=== PATIENT | male | born 1965 | race Asian ===

== ENCOUNTER 2020-05-07 08:41 | Outpatient (REF) | payer OTHER, SELFPAY ==
[2020-05-07 11:05] LABS: MANUAL DIFF FLAG NO
[2020-05-07 11:09] LABS: White Blood Count 5.9 X10*3/uL (4.8-10.8)
[2020-05-07 11:10] LABS: Basophils Percent Auto 0.5 % (0-2); Eosinophils Absolute Auto 0.2 X10*3/uL (0.0-0.4); Eosinophils Percent Auto 3.4 % (0-4); Hematocrit 46.7 % (42-52); Hemoglobin 15.7 g/dl (14.0-18.0); Imm Gran Abs Auto 0.08 X10*3/uL (0.00-0.03); Imm Gran Pct Auto 1.4 % (0.0-0.4); Lymphocytes Absolute Auto 2.2 X10*3/uL (1.2-4.9); Mean Corpuscular HGB Conc 33.6 g/dl (31.0-36.0); Mean Corpuscular Hemoglobin 30.2 pg (27.0-33.0); Mean Corpuscular Volume 89.8 fL (80-98); Mean Platelet Volume 10.8 fL (9.4-12.4); Monocytes Absolute Auto 0.6 X10*3/uL (0.1-1.2); Monocytes Percent Auto 10.8 % (2-11); Neutrophils Absolute Auto 2.8 X10*3/uL (2.0-8.3); Neutrophils Percent Auto 46.9 % (45-73); Platelet Count 231 X10*3/uL (160-400)
[2020-05-07 11:27] LABS: Glucose Urine UA NEG (NEG); Leukocyte Esterase Urine NEG (NEG); Nitrite Urine NEG (NEG); Specific Gravity - Urine >= 1.030 (1.005-1.025); Urine Blood TRACE (NEG); Urine Ketones NEG (NEG); Urine Protein 2+ MG/DL (NEG-TRACE)
[2020-05-07 11:31] LABS: Appearance Urine CLEAR; Color Urine YELLOW
[2020-05-07 11:33] LABS: Alanine Aminotransferase 34 U/L (0-40); Alkaline Phosphatase 84 U/L (39-117); Anion Gap 11 (12-20); Aspartate Amino Transferase 25 U/L (5-37); Bilirubin Total 1.4 mg/dL (0.0-1.0); Blood Urea Nitrogen 22 mg/dL (9-16); Calcium 8.1 mg/dL (8.4-10.2); Carbon Dioxide 27 mmol/L (22-29); Chloride 104 mmol/L (96-108); Cholesterol 166 mg/dL; Estimated Glomerular Filt Rate > 60; Glucose Fasting 91 mg/dL (60-99); HDL Cholesterol 40 mg/dL; LDL Cholesterol Calculated 110 mg/dl; Potassium 4.2 mmol/l (3.3-5.1); Sodium 138 mmol/L (135-145); Total Protein 6.9 g/dL (6.5-8.0); Triglycerides 83 mg/dL
[2020-05-07 11:46] LABS: RBC Urine 0-2 /HPF (0); Squamous Epithelial Cell Urine TRACE /LPF; WBC Urine 0 /HPF (0-4)
[2020-05-07 12:25] LABS: Creatinine Urine 137.56 mg/dL
[2020-05-07 12:45] LABS: Microalbum/Creatinine Ratio Ur 879.6 ug/mg cr
[2020-05-07 13:40] LABS: TSH reflex Free T4 1.17 mIU/mL (0.32-4.0); Vitamin D 25-OH Total 18.3 ng/mL (>30)
== END 2020-05-07 08:42 | disposition home or self-care (01) ==
LOC: HO.HMGCLDS 08:41
PROVIDERS: PCP Internal Medicine; Visit Provider Internal Medicine
DX: E78.00 Pure hypercholesterolemia, unspecified (principal); I10 Essential (primary) hypertension; R80.1 Persistent proteinuria, unspecified; K51.90 Ulcerative colitis, unspecified, without complications; E55.9 Vitamin D deficiency, unspecified; E66.9 Obesity, unspecified
CPT/HCPCS: 36415; 80053; 80061; 81001; 82043; 82306; 84443; 85025

== ENCOUNTER 2020-09-09 11:56 | Outpatient (REF) | payer OTHER, SELFPAY ==
[2020-09-09 15:11] LABS: Albumin Level 3.9 g/dL (3.5-5.0)
[2020-09-14 11:51] LABS: IgA 336 mg/dL (47-310); IgG 1244 mg/dL (600-1640); IgM 41 mg/dL (50-300)
== END 2020-09-09 11:57 | disposition home or self-care (01) ==
LOC: HO.HMGCLDS 11:56
PROVIDERS: PCP Internal Medicine; Visit Provider Internal Medicine Nephrology
DX: I12.9 Hypertensive chronic kidney disease with stage 1 through stage 4 chronic kidney disease, or unspecified chronic kidney disease (principal); N18.9 Chronic kidney disease, unspecified; R80.1 Persistent proteinuria, unspecified
CPT/HCPCS: 36415; 82040; 82784; 86334

== ENCOUNTER 2020-09-19 09:27 | Outpatient (REF) | payer OTHER, SELFPAY ==
[2020-09-19 12:17] LABS: Creatinine, mg/dL 174.31; Protein mg/dL 159 mg/dL
[2020-09-19 12:45] LABS: Creatinine, 24Hr Urine 2.5 G/Day (1.0-2.0); Protein 24 Hr Urine 2306 mg/Day (<150); Total Volume 24 Hour Urine 1450 mL
== END 2020-09-19 09:28 | disposition home or self-care (01) ==
LOC: HO.HMGCLNP 09:27
PROVIDERS: Visit Provider Internal Medicine
DX: R80.1 Persistent proteinuria, unspecified (principal); I12.9 Hypertensive chronic kidney disease with stage 1 through stage 4 chronic kidney disease, or unspecified chronic kidney disease
CPT/HCPCS: 84156

== ENCOUNTER 2020-10-03 08:46 | Outpatient (REF) | payer OTHER, SELFPAY ==
[2020-10-03 11:21] LABS: MANUAL DIFF FLAG NO
[2020-10-03 11:40] LABS: Prothrombin Time 11.9 SEC (10.8-13.0)
[2020-10-03 11:41] LABS: Basophils Percent Auto 0.6 % (0-2); Eosinophils Absolute Auto 0.2 X10*3/uL (0.0-0.4); Eosinophils Percent Auto 3.1 % (0-4); Hematocrit 48.7 % (42-52); Hemoglobin 16.4 g/dl (14.0-18.0); Imm Gran Abs Auto 0.08 X10*3/uL (0.00-0.03); Imm Gran Pct Auto 1.6 % (0.0-0.4); Lymphocytes Absolute Auto 1.8 X10*3/uL (1.2-4.9); Lymphocytes Percent Auto 34.4 % (20-40); Mean Corpuscular HGB Conc 33.7 g/dl (31.0-36.0); Mean Corpuscular Hemoglobin 30.4 pg (27.0-33.0); Mean Corpuscular Volume 90.4 fL (80-98); Mean Platelet Volume 10.6 fL (9.4-12.4); Monocytes Absolute Auto 0.4 X10*3/uL (0.1-1.2); Monocytes Percent Auto 8.3 % (2-11); Neutrophils Absolute Auto 2.6 X10*3/uL (2.0-8.3); Platelet Count 206 X10*3/uL (160-400); Red Blood Count 5.39 X10*6/uL (4.60-5.80); Red Cell Distribution Width 13.1 % (11.0-16.0); White Blood Count 5.1 X10*3/uL (4.8-10.8)
[2020-10-03 11:45] LABS: Glucose Urine UA NEG (NEG); Leukocyte Esterase Urine NEG (NEG); Nitrite Urine NEG (NEG); PH 6.5 (5.0-8.0); Specific Gravity - Urine >= 1.030 (1.005-1.025); Urine Blood 1+ (NEG); Urine Ketones NEG (NEG); Urine Protein 2+ MG/DL (NEG-TRACE)
[2020-10-03 11:53] LABS: Appearance Urine CLEAR; Color Urine YELLOW
[2020-10-03 12:12] LABS: WBC Urine 0 /HPF (0-4)
[2020-10-03 12:18] LABS: Creatinine Urine 152.69 mg/dL; Microalbum/Creatinine Ratio Ur 890.6 ug/mg cr
[2020-10-03 12:25] LABS: Alanine Aminotransferase 31 U/L (0-40); Alkaline Phosphatase 89 U/L (39-117); Anion Gap 11 (12-20); Aspartate Amino Transferase 23 U/L (5-37); Bilirubin Total 1.2 mg/dL (0.0-1.0); Blood Urea Nitrogen 22 mg/dL (9-16); Calcium 8.8 mg/dL (8.4-10.2); Carbon Dioxide 29 mmol/L (22-29); Chloride 103 mmol/L (96-108); Cholesterol 166 mg/dL; Estimated Glomerular Filt Rate > 60; Glucose Fasting 94 mg/dL (60-99); HDL Cholesterol 41 mg/dL; LDL Cholesterol Calculated 107 mg/dl; Potassium 4.4 mmol/L (3.3-5.1); Sodium 139 mmol/L (135-145); Triglycerides 93 mg/dL
== END 2020-10-03 08:47 | disposition home or self-care (01) ==
LOC: HO.HMGCLDS 08:46
PROVIDERS: Absent Provider Internal Medicine Nephrology; PCP Internal Medicine; Visit Provider Internal Medicine
DX: I10 Essential (primary) hypertension (principal); R80.1 Persistent proteinuria, unspecified; E66.9 Obesity, unspecified; E78.00 Pure hypercholesterolemia, unspecified; K21.9 Gastro-esophageal reflux disease without esophagitis; K51.90 Ulcerative colitis, unspecified, without complications; E55.9 Vitamin D deficiency, unspecified
CPT/HCPCS: 36415; 80053; 80061; 81001; 82043; 82306; 83520; 84443; 85025; 85610

== ENCOUNTER 2021-02-23 09:48 | Outpatient (REF) | payer OTHER, SELFPAY ==
[2021-02-23 11:35] LABS: Anion Gap 15 (12-20); Blood Urea Nitrogen 28 mg/dL (9-16); Calcium 9.4 mg/dL (8.4-10.2); Carbon Dioxide 30 mmol/L (22-29); Chloride 99 mmol/L (96-108); Estimated Glomerular Filt Rate 55; Potassium 3.5 mmol/L (3.3-5.1); Sodium 140 mmol/L (135-145)
== END 2021-02-23 09:49 | disposition home or self-care (01) ==
LOC: HO.HMGCLDS 09:48
PROVIDERS: PCP Internal Medicine; Visit Provider Internal Medicine Nephrology
DX: N04.1 Nephrotic syndrome with focal and segmental glomerular lesions (principal); I10 Essential (primary) hypertension; R80.1 Persistent proteinuria, unspecified
CPT/HCPCS: 36415; 80051; 82310; 82565; 84520

== ENCOUNTER 2022-07-22 09:06 | Outpatient (REF) | payer OTHER, SELFPAY ==
[2022-07-22 11:43] LABS: Hematocrit 49.4 % (42.0-52.0); Hemoglobin 17.2 g/dl (14.0-18.0); Mean Corpuscular HGB Conc 34.8 g/dl (31.0-36.0); Mean Corpuscular Hemoglobin 30.7 pg (27.0-33.0); Mean Corpuscular Volume 88.1 fL (80.0-98.0); Mean Platelet Volume 10.5 fL (9.4-12.4); Platelet Count 236 X10*3/uL (160-400); Red Blood Count 5.61 X10*6/uL (4.60-5.80); Red Cell Distribution Width 12.9 % (11.0-16.0); White Blood Count 6.8 X10*3/uL (4.8-10.8)
[2022-07-22 11:57] LABS: Alanine Aminotransferase 31 U/L (0-40); Alkaline Phosphatase 84 U/L (39-117); Anion Gap 10 (12-20); Aspartate Amino Transferase 23 U/L (5-37); Bilirubin Total 1.3 mg/dL (0.0-1.0); Blood Urea Nitrogen 19 mg/dL (9-16); Calcium 9.3 mg/dL (8.4-10.2); Carbon Dioxide 33 mmol/L (22-29); Chloride 99 mmol/L (96-108); Cholesterol 184 mg/dL; Estimated Glomerular Filt Rate > 60; Glucose Fasting 112 mg/dL (60-99); HDL Cholesterol 36 mg/dL; LDL Cholesterol Calculated 126 mg/dl; Potassium 3.7 mmol/L (3.3-5.1); Sodium 138 mmol/L (135-145); Triglycerides 110 mg/dL
[2022-07-22 12:18] LABS: TSH reflex Free T4 1.11 uIU/mL (0.32-4.0); Vitamin D 25-OH Total 15.6 ng/mL (>30)
== END 2022-07-22 09:07 | disposition home or self-care (01) ==
LOC: HO.HMGCLDS 09:06
PROVIDERS: Absent Provider Internal Medicine Nephrology; PCP Internal Medicine; Visit Provider Nurse Practitioner Family
DX: E55.9 Vitamin D deficiency, unspecified (principal); E78.00 Pure hypercholesterolemia, unspecified; I10 Essential (primary) hypertension; N04.1 Nephrotic syndrome with focal and segmental glomerular lesions
CPT/HCPCS: 36415; 80053; 80061; 82306; 84443; 85027

== ENCOUNTER 2022-07-23 09:46 | Outpatient (REF) | payer OTHER, SELFPAY ==
[2022-07-23 12:04] LABS: Creatinine Urine 110.93 mg/dL; Protein/Creatinine Ratio, Ur 0.86 (<0.2); Total Protein Urine Random 95 mg/dL (<12)
[2022-07-23 14:40] LABS: Creatinine, mg/dL 64.94; Protein mg/dL 43 mg/dL
[2022-07-23 15:43] LABS: Creatinine, 24Hr Urine 1.6 G/Day (1.0-2.0); Protein 24 Hr Urine 1086 mg/Day (<150); Total Volume 24 Hour Urine 2525 mL
== END 2022-07-23 09:47 | disposition home or self-care (01) ==
LOC: HO.HMGCLNP 09:46
PROVIDERS: Visit Provider Internal Medicine Nephrology
DX: I10 Essential (primary) hypertension (principal); N04.1 Nephrotic syndrome with focal and segmental glomerular lesions
CPT/HCPCS: 84156

== ENCOUNTER 2022-08-05 11:39 | Outpatient (REF) | payer OTHER, SELFPAY ==
[2022-08-05 14:37] LABS: Erythrocyte Sedimentation Rate 13 MM/HR (0-15); Rheumatoid Factor < 13.0 IU/mL (<15.0)
[2022-08-10 12:13] LABS: Anti Nuclear Antibody Screen NEGATIVE (NEGATIVE)
== END 2022-08-05 11:40 | disposition home or self-care (01) ==
LOC: HO.HMGCLDS 11:39
PROVIDERS: PCP Internal Medicine; Visit Provider Internal Medicine
DX: M25.50 Pain in unspecified joint (principal); M79.7 Fibromyalgia
CPT/HCPCS: 36415; 85652; 86038; 86039; 86140; 86431

== ENCOUNTER 2022-10-26 10:46 | Outpatient (REF) | payer OTHER, SELFPAY ==
[2022-10-26 13:58] LABS: MANUAL DIFF FLAG NO
[2022-10-26 14:03] LABS: Appearance Urine Turbid; Color Urine Yellow; Glucose Urine UA Negative (Negative); Leukocyte Esterase Urine Negative (Negative); Nitrite Urine Negative (Negative); PH 5.5 (5.0-9.0); Specific Gravity - Urine 1.025 (1.005-1.025); UMIC TRIGGER UACC YES; Urine Blood Small (1+) (Negative); Urine Ketones Negative (Negative); Urine Protein 300 (3+) mg/dL (Neg-Trace)
[2022-10-26 14:15] LABS: Basophils Percent Auto 0.4 % (0-2); Eosinophils Absolute Auto 0.2 X10*3/uL (0.0-0.4); Eosinophils Percent Auto 2.3 % (0-4); Hematocrit 49.6 % (42.0-52.0); Imm Gran Abs Auto 0.08 X10*3/uL (0.00-0.03); Imm Gran Pct Auto 1.1 % (0.0-0.4); Lymphocytes Absolute Auto 2.2 X10*3/uL (1.2-4.9); Lymphocytes Percent Auto 29.1 % (20-40); Mean Corpuscular HGB Conc 34.3 g/dl (31.0-36.0); Mean Corpuscular Hemoglobin 30.2 pg (27.0-33.0); Mean Corpuscular Volume 88.1 fL (80.0-98.0); Mean Platelet Volume 11.1 fL (9.4-12.4); Monocytes Absolute Auto 0.6 X10*3/uL (0.1-1.2); Monocytes Percent Auto 8.3 % (2-11); Neutrophils Absolute Auto 4.3 x10*3/uL (2.0-8.3); Neutrophils Percent Auto 58.8 % (45-73); Platelet Count 231 X10*3/uL (160-400); Red Blood Count 5.63 X10*6/uL (4.60-5.80); Red Cell Distribution Width 12.9 % (11.0-16.0); White Blood Count 7.4 X10*3/uL (4.8-10.8)
[2022-10-26 14:19] LABS: Estimated Average Glucose 131 mg/dL; Hemoglobin A1c % 6.2 %
[2022-10-26 14:46] LABS: Bacteria Urine None Seen (None Seen); Hyaline Casts Urine 0-2 /LPF (0-2); RBC Urine 0-2 /HPF (0-2); Squamous Epithelial Cell Urine 0-2 /HPF (0-2); WBC Urine 0-5 /HPF (0-5)
[2022-10-26 14:49] LABS: Alanine Aminotransferase 28 U/L (0-40); Albumin Level 3.8 g/dL (3.5-5.0); Alkaline Phosphatase 77 U/L (39-117); Anion Gap 12 (12-20); Aspartate Amino Transferase 20 U/L (5-37); Bilirubin Total 1.4 mg/dL (0.0-1.0); Blood Urea Nitrogen 21 mg/dL (9-16); Calcium 9.2 mg/dL (8.4-10.2); Carbon Dioxide 29 mmol/L (22-29); Chloride 103 mmol/L (96-108); Cholesterol 188 mg/dL; Estimated Glomerular Filt Rate > 60; Glucose Fasting 113 mg/dL (60-99); HDL Cholesterol 36 mg/dL; LDL Cholesterol Calculated 129 mg/dl; Potassium 3.8 mmol/L (3.3-5.1); Sodium 140 mmol/L (135-145); Total Protein 6.8 g/dL (6.5-8.0); Triglycerides 119 mg/dL
[2022-10-26 14:55] LABS: TSH reflex Free T4 1.22 uIU/mL (0.32-4.0); Vitamin D 25-OH Total 31.2 ng/mL (>30)
== END 2022-10-26 10:47 | disposition home or self-care (01) ==
LOC: HO.HMGCLDS 10:46
PROVIDERS: Absent Provider Internal Medicine; PCP Internal Medicine; Visit Provider Nurse Practitioner Family
DX: I10 Essential (primary) hypertension (principal); R73.01 Impaired fasting glucose; E55.9 Vitamin D deficiency, unspecified; E78.00 Pure hypercholesterolemia, unspecified; R30.0 Dysuria
CPT/HCPCS: 36415; 80053; 80061; 81001; 81003; 82306; 83036; 84443; 85025

== ENCOUNTER 2022-11-01 16:44 | Outpatient (AMB) | payer OTHER, SELFPAY ==
[2022-11-01 16:45] VITALS: BP 126/84; PULSE 95; O2SAT 95; BMI 39.2
--- NOTE | 2022-11-01 16:45 | A.OFFPC_ITS ---
Vital Signs 11/01/22 16:45 Height 5 ft 9 in Weight 265 lb 6 oz BMI 39.2 BP 126/84 Blood Pressure Location Lt brachial Position Sitting Pulse 95 Pulse Source Pulse Oximeter Pulse Oximetry (%) 95 Oxygen Delivery Method Room Air Intake Visit Reasons: f/u Intake Note: Patient is here for a follow up. 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 Accompanied by: Self / Same As Patient Allergies No Known Allergies Allergy (Verified 03/18/23 16:40) Medication List - Last Reconciled 11/01/22 by Chi Cruz MD atorvastatin 80 mg PO BEDTIME 90 days blood pressure monitor As directed chlorthalidone 25 mg PO DAILY cholecalciferol (vitamin D3) 50 mcg PO DAILY 90 days clotrimazole-betamethasone 1-0.05 % 1 appl topical BID PRN losartan 125 mg PO DAILY Tobacco use date assessed: 11/01/22 HPI f/u HPI Details Patient comes in today for his follow up visit States that he feels okay except for increased pain in both hands lately States that he sometimes feels that his hands are swollen and he can hardly make a fist with his hands Does not recall any recent injury or trauma to his hands He denies any headaches or dizziness Denies any chest pains, no SOB No nausea/vomiting, no abdominal pain No change in bowel habits noted Had his follow up labs done last week - to discuss his results [facility] Medical History Bilateral hand pain FSGS (focal segmental glomerulosclerosis) Obesity (BMI 30-39.9) Ulcerative colitis without complications Persistent proteinuria Vitamin D deficiency GERD without esophagitis Pure hypercholesterolemia Benign essential hypertension Surgical History (Updated 03/18/23 @ 17:11 by Chi Cruz MD) Hx of colonoscopy H/O right knee surgery H/O left knee surgery Family History Father Diabetes Hypertension CVD (cardiovascular disease) Mother Medical history unknown Social History Housing: House Patient Tobacco Use Status: Never used Tobacco e-Cigarette/Vaping Use: Never Used service: No Current occupational status: employed Cognitive needs: No Hearing needs: No Vision needs: No Questionnaire PHQ-9 Over the last 2 weeks, how often have you been bothered by any of the following problems? 1. Little interest or pleasure in doing things: not at all 2. Feeling down, depressed, or hopeless: not at all 3. Trouble falling or staying asleep, or sleeping too much: not at all 4. Feeling tired or having little energy: not at all 5. Poor appetite or overeating: not at all 6. Feeling bad about yourself - or that you are a failure or have let yourself or your family down: not at all 7. Trouble concentrating on things, such as reading the newspaper or watching television: not at all 8. Moving or speaking so slowly that other people could have noticed. Or the opposite - being so fidgety or restless that you have been moving around a lot more than usual: not at all 9. Thoughts that you would be better off or of hurting yourself in some way: not at all Total score: 0 Depression Screening Interpretation: Negative 74152 - PHQ-9 Billing: Yes Source: Developed by Drs. Andre Amaral, Brenna Hamilton, Florin Glover and colleagues, with an educational sumaya from [employer]. Thrive Questionnaire Date Thrive assessed: 11/01/22 I am a: Patient What is your living situation today?: I have a steady place to live Within the past 12 months, did the food you bought not last and you didn't have the money to get more?: Never true Within the past 12 months, did you worry whether your food would run out before you got money to buy more?: Never true Currently or been in a relationship where the following occur: no concerns reported AUDIT C Alcohol Use Questionnaire (AUDIT-C) 1. How often do you have a drink containing alcohol?: Never 2. How many drinks containing alcohol do you have on a typical day when you are drinking?: 1 or 2 (0) 3. How often do you have six or more drinks on one occasion?: Never Total Score: 0 Score Reviewed/Action Taken: Yes JEY-7 AMB Questionnaire JEY-7 Date JEY - 7 assessed: 11/01/22 Feeling nervous, anxious, or on edge: 0 = Not at all Not being able to stop or control worryin = Not at all Worrying too much about different things: 0 = Not at all Trouble relaxin = Not at all Being so restless that it is hard to sit still: 0 = Not at all Becoming easily annoyed or irritable: 0 = Not at all Feeling afraid as if something awful might happen: 0 = Not at all Total JEY-7 score (0-4 normal; 5-9 mild; 10-14 moderate; 15-21 severe): 0 Source: Developed by Drs. Andre Amaral, Brenna Hamilton, Florin Glover and colleagues, with an educational sumaya from [employer]. JEY-7 Assessment Billing JEY-7 Assessment Tool: JEY-7 Assessment 13917 Review of Systems Const Denies fatigue, Denies fever(s) and Denies headache(s) ENT Denies dysphagia, Denies dizziness, Denies otalgia, Denies headache(s), Denies odynophagia and Denies sore throat Card Denies chest pain, Denies palpitations and Denies dyspnea Resp Denies cough and Denies dyspnea GI Denies abdominal pain, Denies constipation, Denies dysphagia, Denies heartburn, Denies diarrhea, Denies nausea, Denies odynophagia and Denies vomiting Denies dysuria, Denies nocturia and Denies urinary frequency Musc Details: (+) bilateral hand pain Skin/Breast Denies rash Neuro Denies dizziness and Denies headache(s) Endo Denies fatigue and Denies palpitations Physical exam (Primary Care) Vital Signs: Last Vital Signs Pulse 95 11/01/22 16:45 BP 126/84 11/01/22 16:45 Pulse Ox 95 11/01/22 16:45 Oxygen Delivery Method Room Air 11/01/22 16:45 BMI result Body Mass Index 39.2 Tobacco/Smoking Status: Tobacco use Status Tobacco use date assessed 11/01/22 11/01/22 16:54 Patient Tobacco Use Status Never used Tobacco 11/01/22 16:54 e-Cigarette/Vaping Use Never Used 11/01/22 16:54 PHQ-9: PHQ-9 Score PHQ-9: Total score 0 11/01/22 17:15 Depression Screening Interpretation: Negative Thrive Assessment: Date of Thrive Assessment Date Thrive assessed 11/01/22 11/01/22 16:54 Currently or been in a relationship where the following occur: no concerns reported Const General: no acute distress and alert HENMT Ears: TM's normal bilaterally and EAC's normal Throat: Yes posterior oropharynx normal and Yes tonsils normal (no TP congestion) Neck Neck: Yes no lymphadenopathy and Yes supple Resp Auscultation: clear to auscultation bilaterally, no rales and no wheezes Cardio Rate: regular rate Rhythm: regular rhythm Heart sounds: no murmurs GI Palpation (GI): Soft to palpation, nontender and No hepatosplenomegaly present Auscultation: normal bowel sounds Skin General skin exam: no rashes or lesions noted Extrem General: Yes no clubbing, cyanosis or edema Right upper extremity: Extremity exam: right hand Details: tenderness Left upper extremity: hand Details: tenderness Results Reviewed Results Reviewed: Laboratory Tests 10/26/22 10/26/22 10/26/22 10:52 10:52 10:52 WBC 7.4 Hgb 17.0 Hct 49.6 Plt Count 231 Sodium 140 Potassium 3.8 Creatinine 0.97 Estimated GFR > 60 Fasting Glucose 113 H Hemoglobin A1c % Calcium 9.2 AST 20 ALT 28 Triglycerides 119 Cholesterol 188 LDL Cholesterol, Calc 129 HDL Cholesterol 36 25-OH Vitamin D Total 31.2 TSH 1.22 Ur Specific [employer] 1.025 Urine Protein 300 (3+) H Urine Glucose (UA) Negative Urine Blood Small (1+) H 10/26/22 10:52 WBC Hgb Hct Plt Count Sodium Potassium Creatinine Estimated GFR Fasting Glucose Hemoglobin A1c % 6.2 Calcium AST ALT Triglycerides Cholesterol LDL Cholesterol, Calc HDL Cholesterol 25-OH Vitamin D Total TSH Ur Specific [employer] Urine Protein Urine Glucose (UA) Urine Blood Assessment and Plan Assessment & Plan (1) Benign essential hypertension: Code(s): I10 - Essential (primary) hypertension Plan: Reinforced low sodium diet - goal is systolic BP of 120 mm or less Continue Losartan 25 mg 5 tablets (125 mg) QD and Chlorthalidone 25 mg QD Follow up with nephrology as scheduled (2) Pure hypercholesterolemia: Code(s): E78.00 - Pure hypercholesterolemia, unspecified Plan: Results of his labs done last week reviewed and discussed with patient Reinforced low cholesterol diet Continue Atorvastatin 80 mg QD Will recheck his labs in 4 months for follow up (3) Impaired fasting glucose: Code(s): R73.01 - Impaired fasting glucose Plan: HgbA1c was at 6.2% on his labs done last week;in-office HgbA1c was at 6.3% a few months ago Patient is reminded that this classifies him as a borderline diabetic He wishes to continue with diet modification, exercise and weight loss for now and does not wish to be started on medications for his blood sugar at this time Will recheck his FBS and HgbA1c in 4 months for follow-up (4) Persistent proteinuria: Comment: due to 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 Alejandra) as scheduled Patient has also been reportedly advised to consider bariatric (gastric sleeve) surgery to help improve his health and comorbidities (5) Vitamin D deficiency: Code(s): E55.9 - Vitamin D deficiency, unspecified Plan: Continue Vitamin D3 2000 units QD (6) Bilateral hand pain: Code(s): M79.641 - Pain in right hand; M79.642 - Pain in left hand Plan: Will send for x-rays of both hands for further evaluation (7) GERD without esophagitis: Code(s): K21.9 - Gastro-esophageal reflux disease without esophagitis Plan: Dietary restrictions reinforced Used to take Omeprazole 20 mg QD but states that he has not needed to take any Rx in a while now (8) Ulcerative colitis without complications: Comment: (+) diffuse ulcerative colitis diagnosed on previous colonoscopy in 2002 (Dr. Ayala) Code(s): K51.90 - Ulcerative colitis, unspecified, without complications Qualifiers: Ulcerative colitis location: unspecified ulcerative colitis location Qualified Code(s): K51.90 - Ulcerative colitis, unspecified, without complications Plan: Stable Colonoscopy done in 2013 came out normal and was due for repeat colonoscopy in May 2019 but this has been delayed/held up due to the COVID-19 pandemic Patient is advised to follow up with GI as scheduled and should consider getting a repeat colonoscopy GISELA as it has been more than 5 years now since his last procedure (9) Obesity (BMI 30-39.9): Code(s): E66.9 - Obesity, unspecified Plan: Reinforced diet/exercise as tolerated /lose weight Has been advised by Nephrology to consider gastric sleeve / bariatric surgery to help improve his health - patient has obesity-related secondary FSGS and persistent proteinuria and has been counseled that this can improve with significant weight loss He was previously referred to weight management for further evaluation as he is very hesitant to undergo bariatric surgery and would like to get more information on this for now but is interested in at least the medical weight management option - is still awaiting appt Plan Follow up in 4 months Orders: Orders XR hand LT min 3V 11/01/22 M79.641 - Pain in right hand, M79.642 - Pain in left hand XR hand RT min 3V 11/01/22 M79.641 - Pain in right hand, M79.642 - Pain in left hand Complete Blood Count Auto Diff 4 Months I10 - Essential (primary) hypertension Lipid Panel 4 Months E78.00 - Pure hypercholesterolemia, unspecified Vitamin D 25-OH Total 4 Months E55.9 - Vitamin D deficiency, unspecified Hemoglobin A1c 4 Months R73.01 - Impaired fasting glucose Comprehensive [place]. Panel Fast 4 Months E78.00 - Pure hypercholesterolemia, unsp ecified TSH reflex Free T4 4 Months E78.00 - Pure hypercholesterolemia, unspecified UA CC w/rflx Micro + Cult 4 Months R30.0 - Dysuria Coding Level of Care Code Est Pt Level 4 (89961) Diagnoses Benign essential hypertension I10 Pure hypercholesterolemia E78.00 Impaired fasting glucose R73.01 Persistent proteinuria R80.1 Vitamin D deficiency E55.9 Bilateral hand pain M79.641; M79.642 GERD without esophagitis K21.9 Ulcerative colitis without complications, unspecified location K51.90 Ulcerative colitis location: unspecified ulcerative colitis location Obesity (BMI 30-39.9) E66.9 Additional Codes JEY-7 Assessment Billing - JEY-7 Assessment Tool: JEY-7 Assessment 28268 ([id number])
== END 2022-11-01 17:48 | disposition home or self-care (01) ==
LOC: HO.HMGH 16:44
PROVIDERS: PCP Internal Medicine; Visit Provider Internal Medicine
DX: I10 Essential (primary) hypertension (principal); E55.9 Vitamin D deficiency, unspecified; K21.9 Gastro-esophageal reflux disease without esophagitis; K51.90 Ulcerative colitis, unspecified, without complications; E78.00 Pure hypercholesterolemia, unspecified; R73.01 Impaired fasting glucose; R80.1 Persistent proteinuria, unspecified; M79.641 Pain in right hand; M79.642 Pain in left hand; E66.9 Obesity, unspecified
CPT/HCPCS: 99214

== ENCOUNTER 2023-03-17 09:52 | Outpatient (REF) | payer OTHER, SELFPAY ==
[2023-03-17 13:11] LABS: MANUAL DIFF FLAG NO
[2023-03-17 13:24] LABS: Basophils Percent Auto 0.5 % (0-2); Eosinophils Absolute Auto 0.1 X10*3/uL (0.0-0.4); Eosinophils Percent Auto 2.2 % (0-4); Hematocrit 49.3 % (42.0-52.0); Hemoglobin 17.1 g/dl (14.0-18.0); Imm Gran Abs Auto 0.08 X10*3/uL (0.00-0.03); Imm Gran Pct Auto 1.4 % (0.0-0.4); Lymphocytes Absolute Auto 1.8 X10*3/uL (1.2-4.9); Lymphocytes Percent Auto 29.9 % (20-40); Mean Corpuscular HGB Conc 34.7 g/dl (31.0-36.0); Mean Corpuscular Hemoglobin 30.9 pg (27.0-33.0); Mean Platelet Volume 11.6 fL (9.4-12.4); Monocytes Absolute Auto 0.5 X10*3/uL (0.1-1.2); Monocytes Percent Auto 8.5 % (2-11); Neutrophils Absolute Auto 3.4 x10*3/uL (2.0-8.3); Neutrophils Percent Auto 57.5 % (45-73); Platelet Count 201 X10*3/uL (160-400); Red Blood Count 5.54 X10*6/uL (4.60-5.80); Red Cell Distribution Width 13.1 % (11.0-16.0); White Blood Count 5.9 X10*3/uL (4.8-10.8)
[2023-03-17 13:33] LABS: Estimated Average Glucose 128 mg/dL; Hemoglobin A1c % 6.1 % (<6.0)
[2023-03-17 13:42] LABS: Alanine Aminotransferase 38 U/L (0-40); Albumin Level 3.8 g/dL (3.5-5.0); Alkaline Phosphatase 71 U/L (39-117); Anion Gap 13 (12-20); Aspartate Amino Transferase 31 U/L (5-37); Bilirubin Total 0.9 mg/dL (0.0-1.0); Blood Urea Nitrogen 17 mg/dL (9-16); Carbon Dioxide 28 mmol/L (22-29); Chloride 103 mmol/L (96-108); Cholesterol 170 mg/dL (<200); Estimated Glomerular Filt Rate > 60; Glucose Fasting 105 mg/dL (60-99); HDL Cholesterol 37 mg/dL (>40); LDL Cholesterol Calculated 115 mg/dL (<100); Potassium 3.7 mmol/L (3.3-5.1); Sodium 140 mmol/L (135-145); Total Protein 7.2 g/dL (6.5-8.0); Triglycerides 94 mg/dL (<150)
[2023-03-17 13:49] LABS: TSH reflex Free T4 1.09 uIU/mL (0.32-4.0); Vitamin D 25-OH Total 47.2 ng/mL (>30)
[2023-03-17 13:53] LABS: Appearance Urine Turbid; Color Urine Yellow; Glucose Urine UA Negative (Negative); Leukocyte Esterase Urine Negative (Negative); Nitrite Urine Negative (Negative); PH 5.5 (5.0-9.0); Specific Gravity - Urine 1.025 (1.005-1.025); UMIC TRIGGER UACC YES; Urine Blood Trace (Negative); Urine Ketones Negative (Negative); Urine Protein 300 (3+) mg/dL (Neg-Trace)
[2023-03-17 13:58] LABS: Bacteria Urine None Seen (None Seen); Hyaline Casts Urine 0-2 /LPF (0-2); Squamous Epithelial Cell Urine 0-2 /HPF (0-2); WBC Urine 0-5 /HPF (0-5)
== END 2023-03-17 09:53 | disposition home or self-care (01) ==
LOC: HO.HMGCLDS 09:52
PROVIDERS: Absent Provider Nurse Practitioner Family; PCP Internal Medicine; Visit Provider Internal Medicine
DX: E78.00 Pure hypercholesterolemia, unspecified (principal); I10 Essential (primary) hypertension; E55.9 Vitamin D deficiency, unspecified; R73.01 Impaired fasting glucose
CPT/HCPCS: 36415; 80053; 80061; 81001; 82306; 83036; 84443; 85025

== ENCOUNTER 2023-03-18 16:22 | Outpatient (AMB) | payer OTHER, SELFPAY ==
[2023-03-18 16:24] VITALS: BP 124/90; PULSE 84; O2SAT 95; BMI 40.4
--- NOTE | 2023-03-18 16:24 | A.OFFPC_ITS ---
Vital Signs 03/18/23 16:24 Height 5 ft 9 in Weight 273 lb 6 oz BMI 40.4 BP 124/90 H Blood Pressure Location Lt brachial Position Sitting Pulse 84 Pulse Source Pulse Oximeter Pulse Oximetry (%) 95 Oxygen Delivery Method Room Air Intake Visit Reasons: HTN, hyperlipidemia, IFG, FSGS Research Anthropologist Required: No Accompanied by: Self / Same As Patient Allergies No Known Allergies Allergy (Verified 03/18/23 16:40) Medication List - Last Reconciled 03/18/23 by Chi Cruz MD atorvastatin 80 mg PO BEDTIME 90 days blood pressure monitor As directed chlorthalidone 25 mg PO DAILY cholecalciferol (vitamin D3) 50 mcg PO DAILY 90 days clotrimazole-betamethasone 1-0.05 % 1 appl topical BID PRN losartan 125 mg PO DAILY Tobacco use date assessed: 03/18/23 Dental Screening Dental Screen Date: 03/18/23 Did you have a dental visit in the last 12 months?: No Did you have a dental problem in the last 6 months where you did not have access to dental care?: No Was dental information given to patient?: No HPI HTN, hyperlipidemia, IFG, FSGS HPI Details Patient comes in today for his follow up visit States that he feels okay He denies any headaches or dizziness Denies any chest pains, no SOB No nausea/vomiting, no abdominal pain No change in bowel habits noted Will be needing his Losartan Rx refilled Had his follow up labs done yesterday - to discuss his results FOR[facility], [facility] Medical History Bilateral hand pain FSGS (focal segmental glomerulosclerosis) Obesity (BMI 30-39.9) Ulcerative colitis without complications Persistent proteinuria Vitamin D deficiency GERD without esophagitis Pure hypercholesterolemia Benign essential hypertension Surgical History (Updated 03/18/23 @ 17:11 by Chi Cruz MD) Hx of colonoscopy H/O right knee surgery H/O left knee surgery Family History Father Diabetes Hypertension CVD (cardiovascular disease) Mother Medical history unknown Social History Housing: House Patient Tobacco Use Status: Never used Tobacco e-Cigarette/Vaping Use: Never Used service: No Current occupational status: employed Cognitive needs: No Hearing needs: No Vision needs: No Questionnaire PHQ-9 Over the last 2 weeks, how often have you been bothered by any of the following problems? 1. Little interest or pleasure in doing things: not at all 2. Feeling down, depressed, or hopeless: not at all 3. Trouble falling or staying asleep, or sleeping too much: not at all 4. Feeling tired or having little energy: not at all 5. Poor appetite or overeating: not at all 6. Feeling bad about yourself - or that you are a failure or have let yourself or your family down: not at all 7. Trouble concentrating on things, such as reading the newspaper or watching television: not at all 8. Moving or speaking so slowly that other people could have noticed. Or the opposite - being so fidgety or restless that you have been moving around a lot more than usual: not at all 9. Thoughts that you would be better off or of hurting yourself in some way: not at all Total score: 0 Depression Screening Interpretation: Negative 69982 - PHQ-9 Billing: Yes Source: Developed by Drs. Andre Amaral, Brenna Hamilton, Florin Glover and colleagues, with an educational sumaya from [employer]. Thrive Questionnaire Date Thrive assessed: 03/18/23 I am a: Patient What is your living situation today?: I have a steady place to live Within the past 12 months, did the food you bought not last and you didn't have the money to get more?: Never true Within the past 12 months, did you worry whether your food would run out before you got money to buy more?: Never true Do you have trouble paying for medicines?: No Do you have trouble getting transportation to medical appointments?: No Do you have trouble paying your heating and electricity bill?: No Do you have trouble taking care of your child, family member or friend?: No Do you have trouble with day-to-day activities such as bathing, preparing meals, shopping, managing finances, etc.?: No Are you currently unemployed and looking for a job?: No Are you interested in more education?: No Please select the resources that you would like help with: None Currently or been in a relationship where the following occur: no concerns reported AUDIT C Alcohol Use Questionnaire (AUDIT-C) 1. How often do you have a drink containing alcohol?: Never 2. How many drinks containing alcohol do you have on a typical day when you are drinking?: 1 or 2 (0) 3. How often do you have six or more drinks on one occasion?: Never Total Score: 0 Score Reviewed/Action Taken: Yes JEY-7 AMB Questionnaire JEY-7 Date JEY - 7 assessed: 03/18/23 Feeling nervous, anxious, or on edge: 0 = Not at all Not being able to stop or control worryin = Not at all Worrying too much about different things: 0 = Not at all Trouble relaxin = Not at all Being so restless that it is hard to sit still: 0 = Not at all Becoming easily annoyed or irritable: 0 = Not at all Feeling afraid as if something awful might happen: 0 = Not at all Total JEY-7 score (0-4 normal; 5-9 mild; 10-14 moderate; 15-21 severe): 0 Source: Developed by Drs. Andre Amaral, Brenna Hamilton, Florin Glover and colleagues, with an educational sumaya from [employer]. JEY-7 Assessment Billing JEY-7 Assessment Tool: JEY-7 Assessment 56892 Review of Systems Const Denies chills, Denies fatigue, Denies fever(s) and Denies headache(s) ENT Denies dysphagia, Denies dizziness, Denies otalgia, Denies headache(s), Denies neck pain, Denies odynophagia and Denies sore throat Card Denies chest pain, Denies palpitations and Denies dyspnea Resp Denies cough and Denies dyspnea GI Denies abdominal pain, Denies constipation, Denies dysphagia, Denies heartburn, Denies diarrhea, Denies nausea, Denies odynophagia and Denies vomiting Denies dysuria, Denies nocturia and Denies urinary frequency Musc Denies neck pain Neuro Denies dizziness and Denies headache(s) Endo Denies fatigue and Denies palpitations Physical exam (Primary Care) Vital Signs: Last Vital Signs Pulse 84 03/18/23 16:24 BP 124/90 H 03/18/23 16:24 Pulse Ox 95 03/18/23 16:24 Oxygen Delivery Method Room Air 03/18/23 16:24 BMI result Body Mass Index 40.4 Tobacco/Smoking Status: Tobacco use Status Tobacco use date assessed 03/18/23 03/18/23 16:26 Patient Tobacco Use Status Never used Tobacco 03/18/23 16:26 e-Cigarette/Vaping Use Never Used 03/18/23 16:26 PHQ-9: PHQ-9 Score PHQ-9: Total score 0 03/18/23 16:55 Depression Screening Interpretation: Negative Thrive Assessment: Date of Thrive Assessment Date Thrive assessed 03/18/23 03/18/23 16:26 Currently or been in a relationship where the following occur: no concerns reported Const General: no acute distress and alert HENMT Ears: TM's normal bilaterally and EAC's normal Throat: Yes posterior oropharynx normal and Yes tonsils normal (no TP congest ion) Neck Neck: Yes no lymphadenopathy and Yes supple Resp Auscultation: clear to auscultation bilaterally, no rales and no wheezes Cardio Rate: regular rate Rhythm: regular rhythm Heart sounds: no murmurs GI Palpation (GI): Soft to palpation and nontender Auscultation: normal bowel sounds Skin Rashes: no rashes Extrem General: Yes no clubbing, cyanosis or edema Results Reviewed Results Reviewed: Laboratory Tests 03/17/23 10:02 WBC 5.9 Hgb 17.1 Hct 49.3 Plt Count 201 Sodium 140 Potassium 3.7 Creatinine 0.99 Estimated GFR > 60 Fasting Glucose 105 H Hemoglobin A1c % 6.1 H Calcium 9.0 AST 31 ALT 38 Triglycerides 94 Cholesterol 170 LDL Cholesterol, Calc 115 H HDL Cholesterol 37 L 25-OH Vitamin D Total 47.2 TSH 1.09 Ur Specific [place] 1.025 Urine Protein 300 (3+) H Urine Glucose (UA) Negative Urine Blood Trace H Assessment and Plan Assessment & Plan (1) Benign essential hypertension: Code(s): I10 - Essential (primary) hypertension Plan: Reinforced low sodium diet - goal is systolic BP of 120 mm or less Continue Losartan 100 mg + 25 mg (125 mg) QD and Chlorthalidone 25 mg QD Follow up with nephrology as scheduled (2) Pure hypercholesterolemia: Code(s): E78.00 - Pure hypercholesterolemia, unspecified Plan: Results of his labs done yesterday reviewed and discussed with patient Reinforced low cholesterol diet Continue Atorvastatin 80 mg QD Will recheck his labs and fasting lipids in 4 months for follow up (3) Impaired fasting glucose: Code(s): R73.01 - Impaired fasting glucose Plan: HgbA1c was at 6.1% on his labs done yesterday;was at 6.2% a few months ago Reinforced low calorie/low carb diet, exercise and weight loss Patient wishes to continue with diet modification and avoid taking any Rx for his blood sugar as much as possible Will recheck his FBS and HgbA1c again in 4 months for follow-up (4) Persistent proteinuria: Comment: due to 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 Alejandra) as scheduled Patient has also reportedly been advised to consider bariatric (gastric sleeve) surgery to help improve his health and comorbidities - he has explored weight management recently and is hesitant to undergo bariatric surgery present (5) Vitamin D deficiency: Code(s): E55.9 - Vitamin D deficiency, unspecified Plan: Corrected - continue Vitamin D3 2000 units QD (6) GERD without esophagitis: Code(s): K21.9 - Gastro-esophageal reflux disease without esophagitis Plan: Dietary restrictions reinforced Used to take Omeprazole 20 mg QD but states that he has not needed to take his Rx in a while now (7) Ulcerative colitis without complications: Comment: (+) diffuse ulcerative colitis diagnosed on previous colonoscopy in 2002 (Dr. Ayala) Code(s): K51.90 - Ulcerative colitis, unspecified, without complications Qualifiers: Ulcerative colitis location: unspecified ulcerative colitis location Qualified Code(s): K51.90 - Ulcerative colitis, unspecified, without complications Plan: Stable - states that he's had no acute flare ups of his colitis in years Colonoscopy done in 2013 came out normal and thinks that he was due for repeat colonoscopy in May 2019 but this was delayed/held up due to the COVID-19 pandemic Reviewing his 2013 biopsy revealed findings of a quiescent colitis with no evidence of dysplasia and Dr. Ayala actually recommended back then that patient can wait up to 10 years for a repeat colonoscopy if he has no recurrent flare ups of his colitis, so he will be due for a recheck next year Follow up with GI as scheduled (8) Obesity (BMI 30-39.9): Code(s): E66.9 - Obesity, unspecified Plan: Reinforced diet/exercise as tolerated /lose weight Has been advised by Nephrology to consider gastric sleeve / bariatric surgery to help improve his health - patient has obesity-related secondary FSGS and persistent proteinuria and has been counseled that this can improve with significant weight loss He was referred previously to weight management for further evaluation but patient remains very hesitant to undergo bariatric surgery at this time Plan Follow up in 4 months Orders: Orders Microalbumin, Random (w Creat) 4 Months E11.9 - Type 2 diabetes mellitus without complications Vitamin D 25-OH Total 4 Months E55.9 - Vitamin D deficiency, unspecified TSH reflex Free T4 4 Months E78.00 - Pure hypercholesterolemia, unspecified Comprehensive [place]. Panel Fast 4 Months E78.00 - Pure hypercholesterolemia, unspecified Complete Blood Count Auto Diff 4 Months I10 - Essential (primary) hypertension Lipid Panel 4 Months E78.00 - Pure hypercholesterolemia, unspecified Hemoglobin A1c 4 Months R73.01 - Impaired fasting glucose UA CC w/rflx Micro + Cult 4 Months R30.0 - Dysuria Medications: New losartan To be taken together with Losartan 100 mg for a total of 125 mg DAILY DOSE 25 mg PO DAILY 90 days 90 tabs 1RF Changed From losartan 125 mg PO DAILY To losartan To be taken together with Losartan 25 mg for a total of 125 mg DAILY DOSE 100 mg PO DAILY 90 days 90 tabs 1RF Coding Level of Care Code Est Pt Level 4 (23568) Diagnoses Benign essential hypertension I10 Pure hypercholesterolemia E78.00 Impaired fasting glucose R73.01 Persistent proteinuria R80.1 Vitamin D deficiency E55.9 GERD without esophagitis K21.9 Ulcerative colitis without complications, unspecified location K51.90 Ulcerative colitis location: unspecified ulcerative colitis location Obesity (BMI 30-39.9) E66.9 Additional Codes JEY-7 Assessment Billing - JEY-7 Assessment Tool: JEY-7 Assessment 65240 ([id number])
== END 2023-03-18 17:12 | disposition home or self-care (01) ==
PROVIDERS: Visit Provider Internal Medicine
DX: I10 Essential (primary) hypertension (principal); E78.00 Pure hypercholesterolemia, unspecified; R73.01 Impaired fasting glucose; E55.9 Vitamin D deficiency, unspecified
CPT/HCPCS: 99214

== ENCOUNTER 2023-07-12 06:00 | Outpatient (REF) | payer OTHER, SELFPAY ==
[2023-07-12 06:09] LABS: MANUAL DIFF FLAG NO
[2023-07-12 07:31] LABS: Appearance Urine Clear; Color Urine Yellow; Glucose Urine UA Negative (Negative); Leukocyte Esterase Urine Negative (Negative); Nitrite Urine Negative (Negative); Specific Gravity - Urine 1.025 (1.005-1.025); UMIC TRIGGER UACC YES; Urine Blood Negative (Negative); Urine Ketones Negative (Negative); Urine Protein 300 (3+) mg/dL (Neg-Trace)
[2023-07-12 07:34] LABS: Basophils Percent Auto 0.6 % (0-2); Eosinophils Absolute Auto 0.2 X10*3/uL (0.0-0.4); Eosinophils Percent Auto 2.5 % (0-4); Hematocrit 49.1 % (42.0-52.0); Imm Gran Abs Auto 0.08 X10*3/uL (0.00-0.03); Imm Gran Pct Auto 1.2 % (0.0-0.4); Lymphocytes Percent Auto 31.5 % (20-40); Mean Corpuscular HGB Conc 34.6 g/dl (31.0-36.0); Mean Corpuscular Hemoglobin 30.9 pg (27.0-33.0); Mean Corpuscular Volume 89.3 fL (80.0-98.0); Mean Platelet Volume 11.1 fL (9.4-12.4); Monocytes Absolute Auto 0.7 X10*3/uL (0.1-1.2); Neutrophils Absolute Auto 3.5 x10*3/uL (2.0-8.3); Neutrophils Percent Auto 54.2 % (45-73); Platelet Count 241 X10*3/uL (160-400); Red Cell Distribution Width 12.8 % (11.0-16.0); White Blood Count 6.5 X10*3/uL (4.8-10.8)
[2023-07-12 07:43] LABS: Estimated Average Glucose 126 mg/dL
[2023-07-12 07:50] LABS: Bacteria Urine None Seen (None Seen); Hyaline Casts Urine 0-2 /LPF (0-2); RBC Urine 0-2 /HPF (0-2); Squamous Epithelial Cell Urine 0-2 /HPF (0-2); WBC Urine 0-5 /HPF (0-5)
[2023-07-12 08:10] LABS: Alanine Aminotransferase 33 U/L (0-40); Albumin Level 3.9 g/dL (3.5-5.0); Alkaline Phosphatase 81 U/L (39-117); Anion Gap 13 (12-20); Aspartate Amino Transferase 24 U/L (5-37); Bilirubin Total 0.9 mg/dL (0.0-1.0); Blood Urea Nitrogen 19 mg/dL (9-16); Calcium 9.5 mg/dL (8.4-10.2); Carbon Dioxide 30 mmol/L (22-29); Chloride 101 mmol/L (96-108); Cholesterol 183 mg/dL (<200); Estimated Glomerular Filt Rate > 60; Glucose Fasting 113 mg/dL (60-99); HDL Cholesterol 38 mg/dL (>40); LDL Cholesterol Calculated 129 mg/dL (<100); Potassium 3.7 mmol/L (3.3-5.1); Sodium 140 mmol/L (135-145); Total Protein 7.4 g/dL (6.5-8.0); Triglycerides 84 mg/dL (<150)
[2023-07-12 08:12] LABS: Creatinine Urine 205.36 mg/dL
[2023-07-12 08:18] LABS: TSH reflex Free T4 1.73 uIU/mL (0.32-4.0); Vitamin D 25-OH Total 20.5 ng/mL (>30)
[2023-07-12 08:26] LABS: Microalbum/Creatinine Ratio Ur 973.8 ug/mg cr (<30); Microalbumin Urine > 2000.0 mg/L
== END 2023-07-12 06:01 | disposition home or self-care (01) ==
LOC: HO.LAB 06:00
PROVIDERS: PCP Internal Medicine; Visit Provider Internal Medicine
DX: E78.00 Pure hypercholesterolemia, unspecified (principal); I10 Essential (primary) hypertension; E11.9 Type 2 diabetes mellitus without complications; E55.9 Vitamin D deficiency, unspecified
CPT/HCPCS: 36415; 80053; 80061; 81001; 82043; 82306; 82570; 83036; 84443; 85025

== ENCOUNTER 2023-07-18 15:22 | Outpatient (AMB) | payer OTHER, SELFPAY ==
[2023-07-18 15:24] VITALS: BP 138/86; PULSE 78; O2SAT 94; BMI 41.2
--- NOTE | 2023-07-18 15:24 | MHC.PC.OV ---
Vital Signs 07/18/23 15:24 Height 5 ft 9 in Weight 279 lb BMI 41.2 BP 138/86 Blood Pressure Location Lt brachial Position Sitting Pulse 78 Pulse Source Pulse Oximeter Pulse Oximetry (%) 94 Oxygen Delivery Method Room Air Intake Visit Reasons: 4 Months F/U-HTN Survey [place] Required: No Accompanied by: Self / Same As Patient Allergies No Known Allergies Allergy (Verified 07/18/23 16:09) Medication List - Last Reconciled 07/18/23 by Chi Cruz MD atorvastatin 80 mg PO BEDTIME 90 days blood pressure monitor As directed chlorthalidone 25 mg PO DAILY cholecalciferol (vitamin D3) 50 mcg PO DAILY 90 days clotrimazole-betamethasone 1-0.05 % 1 appl topical BID PRN losartan 100 mg PO DAILY 90 days losartan 25 mg PO DAILY 90 days Tobacco use date assessed: 07/18/23 Dental Screening Dental Screen Date: 07/18/23 Did you have a dental visit in the last 12 months?: Yes Did you have a dental problem in the last 6 months where you did not have access to dental care?: No Was dental information given to patient?: Patient has dentist HPI 4 Months F/U-HTN HPI Details Patient comes in today for his follow up visit States that he has been experiencing occasional right-sided abdominal cramping pain and has had some loose stools for the past few days He has not seen any blood in his stool lately but is concerned that his symptoms may be due to a flare up of his ulcerative colitis States that he feels okay otherwise and denies any fever, nausea or vomiting He denies any headaches or dizziness Denies any chest pains, no SOB Needs a few of his Rx refilled, including his blood pressure meds Had his follow up labs done last week - to discuss his results [facility] Medical History Bilateral hand pain FSGS (focal segmental glomerulosclerosis) Obesity (BMI 30-39.9) Ulcerative colitis without complications Persistent proteinuria Vitamin D deficiency GERD without esophagitis Pure hypercholesterolemia Benign essential hypertension Surgical History Hx of colonoscopy H/O right knee surgery H/O left knee surgery Family History Father Diabetes Hypertension CVD (cardiovascular disease) Mother Medical history unknown Social History Housing: House Patient Tobacco Use Status: Never used Tobacco e-Cigarette/Vaping Use: Never Used service: No Current occupational status: employed Cognitive needs: No Hearing needs: No Vision needs: No Questionnaire PHQ-9 Over the last 2 weeks, how often have you been bothered by any of the following problems? 1. Little interest or pleasure in doing things: not at all 2. Feeling down, depressed, or hopeless: not at all 3. Trouble falling or staying asleep, or sleeping too much: not at all 4. Feeling tired or having little energy: not at all 5. Poor appetite or overeating: not at all 6. Feeling bad about yourself - or that you are a failure or have let yourself or your family down: not at all 7. Trouble concentrating on things, such as reading the newspaper or watching television: not at all 8. Moving or speaking so slowly that other people could have noticed. Or the opposite - being so fidgety or restless that you have been moving around a lot more than usual: not at all 9. Thoughts that you would be better off or of hurting yourself in some way: not at all Total score: 0 Depression Screening Interpretation: Negative Depression Screening Done: Yes 19249 - PHQ-9 Billing: Yes Source: Developed by Drs. Andre Amaral, Brenna Hamilton, Florin Glover and colleagues, with an educational sumaya from [employer]. Thrive Questionnaire Date Thrive assessed: 07/18/23 I am a: Patient What is your living situation today?: I have a steady place to live Within the past 12 months, did the food you bought not last and you didn't have the money to get more?: Never true Within the past 12 months, did you worry whether your food would run out before you got money to buy more?: Never true Do you have trouble paying for medicines?: No Do you have trouble getting transportation to medical appointments?: No Do you have trouble paying your heating and electricity bill?: No Do you have trouble taking care of your child, family member or friend?: No Do you have trouble with day-to-day activities such as bathing, preparing meals, shopping, managing finances, etc.?: No Are you currently unemployed and looking for a job?: No Are you interested in more education?: No Please select the resources that you would like help with: None Currently or been in a relationship where the following occur: no concerns reported THRIVE Score: 0 AUDIT C Alcohol Use Questionnaire (AUDIT-C) 1. How often do you have a drink containing alcohol?: Never 2. How many drinks containing alcohol do you have on a typical day when you are drinking?: 1 or 2 (0) 3. How often do you have six or more drinks on one occasion?: Never Total Score: 0 Score Reviewed/Action Taken: Yes JEY-7 AMB Questionnaire JEY-7 Date JEY - 7 assessed: 07/18/23 Feeling nervous, anxious, or on edge: 0 = Not at all Not being able to stop or control worryin = Not at all Worrying too much about different things: 0 = Not at all Trouble relaxin = Not at all Being so restless that it is hard to sit still: 0 = Not at all Becoming easily annoyed or irritable: 0 = Not at all Feeling afraid as if something awful might happen: 0 = Not at all Total JYE-7 score (0-4 normal; 5-9 mild; 10-14 moderate; 15-21 severe): 0 Source: Developed by Drs. Andre Amaral, Brenna Hamilton, Florin Glover and colleagues, with an educational sumaya from [employer]. JEY-7 Assessment Billing JEY-7 Assessment Tool: JEY-7 Assessment 17597 Review of Systems Const Denies chills, Denies fatigue, Denies fever(s) and Denies headache(s) ENT Denies dysphagia, Denies dizziness, Denies otalgia, Denies headache(s), Denies neck pain, Denies odynophagia and Denies sore throat Card Denies chest pain, Denies palpitations and Denies dyspnea Resp Denies cough and Denies dyspnea GI Reports abdominal pain (on and off cramping pain on the right side), Denies hematochezia, Denies constipation, Denies dysphagia, Denies heartburn, Reports loose stools (on and off for a few days), Denies nausea, Denies odynophagia and Denies vomiting Denies dysuria, Denies nocturia and Denies urinary frequency Musc Denies back pain and Denies neck pain Skin/Breast Denies rash Neuro Denies dizziness and Denies headache(s) Endo Denies fatigue and Denies palpitations Physical exam (Primary Care) Vital Signs: Last Vital Signs Pulse 78 07/18/23 15:24 BP 138/86 07/18/23 15:24 Pulse Ox 94 07/18/23 15:24 Oxygen Delivery Method Room Air 07/18/23 15:24 BMI result Body Mass Index 41.2 Tobacco/Smoking Status: Tobacco use Status Tobacco use date assessed 07/18/23 07/18/23 15:27 Patient Tobacco Use Status Never used Tobacco 07/18/23 15:27 e-Cigarette/Vaping Use Never Used 07/18/23 15:27 PHQ-9: PHQ-9 Score PHQ-9: Total score 0 07/18/23 16:10 Depression Screening Interpretation: Negative Thrive Assessment: Date of Thrive Assessment Date Thrive assessed 07/18/23 07/18/23 15:27 Currently or been in a relationship where the following occur: no concerns reported Const General: no acute distress and alert HENMT Ears: TM's normal bilaterally and EAC's normal Throat: Yes posterior oropharynx normal and Yes tonsils normal (no TP congestion) Neck Neck: Yes no lymphadenopathy and Yes supple Resp Auscultation: clear to auscultation bilaterally, no rales and no wheezes Cardio Rate: regular rate Rhythm: regular rhythm Heart sounds: no murmurs GI Palpation (GI): Soft to palpation, Tenderness to palpation present (GI) (mild, on the right side), no guarding, not rigid and No Rebound tenderness present Auscultation: normal bowel sounds General: Yes no CVA tenderness Back/Spine/Pelvis Back: no CVA tenderness Skin Rashes: no rashes Extrem General: Yes no clubbing, cyanosis or edema Results Reviewed Results Reviewed: Laboratory Tests 07/12/23 06:08 WBC 6.5 Hgb 17.0 Hct 49.1 Plt Count 241 Sodium 140 Potassium 3.7 Creatinine 1.23 Estimated GFR > 60 Fasting Glucose 113 H Hemoglobin A1c % 6.0 Calcium 9.5 AST 24 ALT 33 Triglycerides 84 Cholesterol 183 LDL Cholesterol, Calc 129 H HDL Cholesterol 38 L 25-OH Vitamin D Total 20.5 L TSH 1.73 Ur Specific Jeffers 1.025 Urine Protein 300 (3+) H Urine Glucose (UA) Negative Urine Blood Negative Urine Nitrite Negative Ur Leukocyte Esterase Negative Microalb/Creat Ratio 973.8 H Assessment and Plan Assessment & Plan (1) Benign essential hypertension: Code(s): I10 - Essential (primary) hypertension Plan: Reinforced low sodium diet - goal is systolic BP of 120 mm or less Continue Losartan 100 mg + 25 mg (125 mg) QD and Chlorthalidone 25 mg QD Follow up with nephrology as scheduled - patient was seeing Dr. Sterling previously and will refer him back to Dr. Sterling for nephrology follow up (as Dr. Sterling left his previous practice and has joined [facility] recently) (2) Pure hypercholesterolemia: Code(s): E78.00 - Pure hypercholesterolemia, unspecified Plan: Results of his labs done last week reviewed and discussed with patient Reinforced low cholesterol diet Continue Atorvastatin 80 mg QD Will recheck his labs and fasting lipids in 4 months for follow up (3) Impaired fasting glucose: Code(s): R73.01 - Impaired fasting glucose Plan: HgbA1c was at 6.0% on his labs done last week; was at 6.1% a few months ago Reinforced low calorie/low carb diet, exercise and weight loss Patient wishes to continue with diet modification and avoid taking any Rx for his blood sugar as much as possible Will recheck his FBS and HgbA1c again in 4 months for follow-up (4) Persistent proteinuria: Comment: due to 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 Alejandra) as scheduled - is being referred back to Dr. Sterling as he switched practices recently Patient has also reportedly been advised to consider bariatric (gastric sleeve) surgery to help improve his health and comorbidities - he has explored weight management recently and is hesitant to undergo bariatric surgery present (5) Vitamin D deficiency: Code(s): E55.9 - Vitamin D deficiency, unspecified Plan: Continue Vitamin D3 2000 units QD - Rx refilled (6) GERD without esophagitis: Code(s): K21.9 - Gastro-esophageal reflux disease without esophagitis Plan: Dietary restrictions reinforced Used to take Omeprazole 20 mg QD but states that he has not needed to take his Rx in a while now (7) Ulcerative colitis without complications: Comment: (+) diffuse ulcerative colitis diagnosed on previous colonoscopy in 2002 (Dr. Ayala) Code(s): K51.90 - Ulcerative colitis, unspecified, without complications Qualifiers: Ulcerative colitis location: unspecified ulcerative colitis location Qualified Code(s): K51.90 - Ulcerative colitis, unspecified, without complications Plan: He is currently experiencing some right-sided abdominal pain and has had some loose stools for the past few days Colonoscopy done in 2013 came out normal and thinks that he was due for repeat colonoscopy in May 2019 but this was delayed/held up due to the COVID-19 pandemic Reviewing his 2013 biopsy revealed findings of a quiescent colitis with no evidence of dysplasia and Dr. Ayala actually recommended back then that patient can wait up to 10 years for a repeat colonoscopy if he has no recurrent flare ups of his colitis, so he is now due for his repeat colonoscopy Will refer him to Dr. Ayala for further evaluation as patient is concerned that he may be experiencing a flare up of his colitis at present, and also for his repeat colonoscopy (8) Obesity (BMI 30-39.9): Code(s): E66.9 - Obesity, unspecified Plan: Reinforced diet/exercise as tolerated /lose weight He has been advised by Nephrology to consider gastric sleeve / bariatric surgery to help improve his health - patient has obesity-related secondary FSGS and persistent proteinuria and has been counseled that this can improve with significant weight loss He was referred previously to weight management for further evaluation but patient remains very hesitant to undergo bariatric surgery at this time Plan Follow up in 4 months Orders: Orders Complete Blood Count Auto Diff 4 Months D64.9 - Anemia, unspecified Comprehensive [place]. Panel Fast 4 Months E78.00 - Pure hypercholesterolemia, unspecified TSH reflex Free T4 4 Months E78.00 - Pure hypercholesterolemia, unspecified Hemoglobin A1c 4 Months E11.9 - Type 2 diabetes mellitus without complications Lipid Panel 4 Months E78.00 - Pure hypercholesterolemia, unspecified Microalbumin, Random (w Creat) 4 Months E11.9 - Type 2 diabetes mellitus without complications UA CC w/rflx Micro + Cult 4 Months R30.0 - Dysuria Vitamin B12 and Folate 4 Months E53.8 - Deficiency of other specified B group vitamins Vitamin D 25-OH Total 4 Months E55.9 - Vitamin D deficiency, unspecified Referrals Nephrology Referral R80.1 - Persistent proteinuria, unspecified, 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 Gastroenterology Referral K51.90 - Ulcerative colitis, unspecified, without complications, Z12.11 - Encounter for screening for malignant neoplasm of colon Medications: Changed From chlorthalidone 25 mg PO DAILY To chlorthalidone 25 mg PO DAILY 90 tabs 1RF 90 days Refilled losartan To be taken together with Losartan 100 mg for a total of 125 mg DAILY DOSE 25 mg PO DAILY 90 tabs 1RF 90 days cholecalciferol (vitamin D3) 50 mcg PO DAILY 90 tabs 3RF 90 days R79.89 - Other specified abnormal findings of blood chemistry losartan To be taken together with Losartan 25 mg for a total of 125 mg DAILY DOSE 100 mg PO DAILY 90 tabs 1RF 90 days Coding Level of Care Code Est Pt Level 4 (28922) Diagnoses Benign essential hypertension I10 Pure hypercholesterolemia E78.00 Impaired fasting glucose R73.01 Persistent proteinuria R80.1 Vitamin D deficiency E55.9 GERD without esophagitis K21.9 Ulcerative colitis without complications, unspecified location K51.90 Ulcerative colitis location: unspecified ulcerative colitis location Obesity (BMI 30-39.9) E66.9 Additional Codes JEY-7 Assessment Billing - JEY-7 Assessment Tool: JEY-7 Assessment [id number] ([id number])
== END 2023-07-18 16:21 | disposition home or self-care (01) ==
PROVIDERS: PCP Internal Medicine; Visit Provider Internal Medicine
DX: I10 Essential (primary) hypertension (principal); K51.90 Ulcerative colitis, unspecified, without complications; Z68.41 Body mass index [BMI] 40.0-44.9, adult; E66.9 Obesity, unspecified; E78.00 Pure hypercholesterolemia, unspecified; R73.01 Impaired fasting glucose; R80.1 Persistent proteinuria, unspecified; E55.9 Vitamin D deficiency, unspecified; K21.9 Gastro-esophageal reflux disease without esophagitis
CPT/HCPCS: 99214

== ENCOUNTER 2023-11-07 06:01 | Outpatient (REF) | payer OTHER, SELFPAY ==
[2023-11-07 06:17] LABS: MANUAL DIFF FLAG NO
[2023-11-07 07:51] LABS: Basophils Percent Auto 0.7 % (0-2); Eosinophils Absolute Auto 0.2 X10*3/uL (0.0-0.4); Eosinophils Percent Auto 4.2 % (0-4); Hematocrit 46.7 % (42.0-52.0); Hemoglobin 16.2 g/dl (14.0-18.0); Imm Gran Abs Auto 0.06 X10*3/uL (0.00-0.03); Lymphocytes Absolute Auto 2.2 X10*3/uL (1.2-4.9); Lymphocytes Percent Auto 37.5 % (20-40); Mean Corpuscular HGB Conc 34.7 g/dl (31.0-36.0); Mean Corpuscular Hemoglobin 30.7 pg (27.0-33.0); Mean Corpuscular Volume 88.6 fL (80.0-98.0); Mean Platelet Volume 11.3 fL (9.4-12.4); Monocytes Absolute Auto 0.7 X10*3/uL (0.1-1.2); Monocytes Percent Auto 11.5 % (2-11); Neutrophils Absolute Auto 2.6 x10*3/uL (2.0-8.3); Neutrophils Percent Auto 45.1 % (45-73); Platelet Count 202 X10*3/uL (160-400); Red Blood Count 5.27 X10*6/uL (4.60-5.80); Red Cell Distribution Width 13.2 % (11.0-16.0); White Blood Count 5.7 X10*3/uL (4.8-10.8)
[2023-11-07 07:56] LABS: Estimated Average Glucose 137 mg/dL; Hemoglobin A1c % 6.4 % (<6.0)
[2023-11-07 08:26] LABS: Appearance Urine Clear; Color Urine Yellow; Glucose Urine UA Negative (Negative); Leukocyte Esterase Urine Negative (Negative); Nitrite Urine Negative (Negative); UMIC TRIGGER UACC YES; Urine Blood Negative (Negative); Urine Ketones Negative (Negative); Urine Protein 100 (2+) mg/dL (Neg-Trace)
[2023-11-07 08:32] LABS: Alanine Aminotransferase 30 U/L (0-40); Albumin Level 3.7 g/dL (3.5-5.0); Alkaline Phosphatase 80 U/L (39-117); Anion Gap 15 (12-20); Aspartate Amino Transferase 32 U/L (5-37); Blood Urea Nitrogen 21 mg/dL (9-16); Calcium 9.5 mg/dL (8.4-10.2); Carbon Dioxide 30 mmol/L (22-29); Chloride 100 mmol/L (96-108); Cholesterol 160 mg/dL (<200); Estimated Glomerular Filt Rate > 60; Glucose Fasting 113 mg/dL (60-99); HDL Cholesterol 36 mg/dL (>40); LDL Cholesterol Calculated 105 mg/dL (<100); Potassium 3.1 mmol/L (3.3-5.1); Sodium 142 mmol/L (135-145); Total Protein 7.2 g/dL (6.5-8.0); Triglycerides 98 mg/dL (<150)
[2023-11-07 08:36] LABS: Creatinine Urine 135.49 mg/dL
[2023-11-07 08:37] LABS: Bacteria Urine None Seen (None Seen); Hyaline Casts Urine 0-2 /LPF (0-2); RBC Urine 0-2 /HPF (0-2); Squamous Epithelial Cell Urine 0-2 /HPF (0-2); WBC Urine 0-5 /HPF (0-5)
[2023-11-07 08:48] LABS: Microalbum/Creatinine Ratio Ur 643.5 ug/mg cr (<30)
[2023-11-07 08:53] LABS: TSH reflex Free T4 2.09 uIU/mL (0.32-4.0); Vitamin D 25-OH Total 27.3 ng/mL (>30)
[2023-11-07 08:57] LABS: Folate 8.1 ng/mL (> or = 4.0); Vitamin B12 389 pg/mL (200-900)
== END 2023-11-07 06:02 | disposition home or self-care (01) ==
LOC: HO.LAB 06:01
PROVIDERS: PCP Internal Medicine; Visit Provider Internal Medicine
DX: D64.9 Anemia, unspecified (principal); E78.00 Pure hypercholesterolemia, unspecified; E11.9 Type 2 diabetes mellitus without complications; E53.8 Deficiency of other specified B group vitamins; E55.9 Vitamin D deficiency, unspecified
CPT/HCPCS: 36415; 80053; 80061; 81001; 81003; 82043; 82306; 82570; 82607; 82746; 83036; 84443; 85025

== ENCOUNTER 2023-11-16 15:24 | Outpatient (AMB) | payer OTHER, SELFPAY ==
[2023-11-16 15:34] VITALS: BP 140/98; PULSE 84; O2SAT 97; BMI 40.3
--- NOTE | 2023-11-16 15:34 | A.OFFPC_ITS ---
Vital Signs 11/16/23 15:34 11/16/23 16:09 Height 5 ft 9 in Weight 273 lb 0.6 oz BMI 40.3 BP 140/98 H 130/96 H Blood Pressure Location Lt brachial Lt brachial Position Sitting Sitting Pulse 84 Pulse Source Pulse Oximeter Pulse Oximetry (%) 97 Oxygen Delivery Method Room Air Intake Visit Reasons: 4 month f/u Allergies No Known Allergies Allergy (Verified 11/16/23 16:05) Medication List - Last Reconciled 11/16/23 by Chi Cruz MD atorvastatin 80 mg PO BEDTIME 90 days blood pressure monitor As directed chlorthalidone 25 mg PO DAILY 90 days cholecalciferol (vitamin D3) 50 mcg PO DAILY 90 days clotrimazole-betamethasone 1-0.05 % 1 appl topical BID PRN losartan 25 mg PO DAILY 90 days losartan 100 mg PO DAILY 90 days Tobacco use date assessed: 07/18/23 Dental Screening Dental Screen Date: 11/16/23 HPI 4 month f/u HPI Details Patient comes in today for his follow-up visit States that he feels okay except for scattered and recurrent itchy rash due to poison cierra States that he recently moved into a new house in [place] and has been doing a lot of work and cleaning out in his backyard and accidentally came into contact with some poison cierra a few days ago States that he broke out in an itchy rash all over - notes that the rash has cleared up slightly since but he still has a lot of itchy rash scattered all over his body, especially over his arms and legs He denies any headaches or dizziness Denies any chest pains, no shortness of breath No nausea/vomiting, no abdominal pain No change in bowel habits noted Need several of his Rx refilled Had his follow-up labs done last week - to discuss his results States that he has a follow up appointment scheduled with Dr. Ayala in December 2023 after which he will then be scheduled for his colonoscopy [facility] Medical History Bilateral hand pain FSGS (focal segmental glomerulosclerosis) Obesity (BMI 30-39.9) Ulcerative colitis without complications Persistent proteinuria Vitamin D deficiency GERD without esophagitis Pure hypercholesterolemia Benign essential hypertension Surgical History Hx of colonoscopy H/O right knee surgery H/O left knee surgery Family History Father Diabetes Hypertension CVD (cardiovascular disease) Mother Medical history unknown Social History Housing: House Patient Tobacco Use Status: Never used Tobacco e-Cigarette/Vaping Use: Never Used service: No Current occupational status: employed Cognitive needs: No Hearing needs: No Vision needs: No Questionnaire Thrive Questionnaire Date Thrive assessed: 11/16/23 I am a: Patient What is your living situation today?: I have a steady place to live Within the past 12 months, did the food you bought not last and you didn't have the money to get more?: Never true Within the past 12 months, did you worry whether your food would run out before you got money to buy more?: Never true Do you have trouble paying for medicines?: No Do you have trouble getting transportation to medical appointments?: No Do you have trouble paying your heating and electricity bill?: No Do you have trouble taking care of your child, family member or friend?: No Do you have trouble with day-to-day activities such as bathing, preparing meals, shopping, managing finances, etc.?: No Are you currently unemployed and looking for a job?: No Are you interested in more education?: No Please select the resources that you would like help with: None Currently or been in a relationship where the following occur: no concerns reported THRIVE Score: 0 AUDIT C Alcohol Use Questionnaire (AUDIT-C) 1. How often do you have a drink containing alcohol?: Never 2. How many drinks containing alcohol do you have on a typical day when you are drinking?: 1 or 2 (0) 3. How often do you have six or more drinks on one occasion?: Never Total Score: 0 Score Reviewed/Action Taken: Yes JEY-7 AMB Questionnaire JEY-7 Date JEY - 7 assessed: 07/18/23 Source: Developed by Drs. Andre Amaral, Brenna Hamilton, Florin Glover and colleagues, with an educational sumaya from [employer]. Review of Systems Const Denies chills, Denies fatigue, Denies fever(s) and Denies headache(s) ENT Denies dysphagia, Denies dizziness, Denies otalgia, Denies headache(s), Denies neck pain, Denies odynophagia and Denies sore throat Card Denies chest pain, Denies palpitations and Denies dyspnea Resp Denies cough and Denies dyspnea GI Denies abdominal pain, Denies hematochezia, Denies constipation, Denies dysphagia, Denies heartburn, Denies loose stools, Denies nausea, Denies odynophagia and Denies vomiting Denies dysuria, Denies nocturia and Denies urinary frequency Musc Denies back pain and Denies neck pain Skin/Breast Details: (+) scattered itchy rash all over due to poison cierra Neuro Denies dizziness and Denies headache(s) Endo Denies fatigue and Denies palpitations Physical exam (Primary Care) Vital Signs: Last Vital Signs Pulse 84 11/16/23 15:34 BP 130/96 H 11/16/23 16:09 Pulse Ox 97 11/16/23 15:34 Oxygen Delivery Method Room Air 11/16/23 15:34 BMI result Body Mass Index 40.3 Tobacco/Smoking Status: Tobacco use Status Tobacco use date assessed 07/18/23 11/16/23 15:41 Patient Tobacco Use Status Never used Tobacco 11/16/23 15:41 e-Cigarette/Vaping Use Never Used 11/16/23 15:41 Thrive Assessment: Date of Thrive Assessment Date Thrive assessed 11/16/23 11/16/23 15:41 Currently or been in a relationship where the following occur: no concerns reported Const General: no acute distress and alert HENMT Ears: TM's normal bilaterally and EAC's normal Throat: Yes posterior oropharynx normal and Yes tonsils normal (no TP conge stion) Neck Neck: Yes no lymphadenopathy and Yes supple Thyroid: Thyroid normal Resp Auscultation: clear to auscultation bilaterally, no rales and no wheezes Cardio Rate: regular rate Rhythm: regular rhythm Heart sounds: no murmurs GI Palpation (GI): Soft to palpation and nontender Auscultation: normal bowel sounds General: Yes no CVA tenderness Back/Spine/Pelvis Back: no CVA tenderness Thoracic/Lumbar Spine: No lumbar spinal tenderness Skin Other: (+) scattered patchy erythematous papular rash noted over his arms and legs bilaterally Extrem General: Yes no clubbing, cyanosis or edema Results Reviewed Results Reviewed: Laboratory Tests 11/07/23 11/07/23 06:12 06:15 WBC 5.7 Hgb 16.2 Hct 46.7 Plt Count 202 Sodium 142 Potassium 3.1 L Creatinine 1.03 Estimated GFR > 60 Fasting Glucose 113 H Hemoglobin A1c % 6.4 H Calcium 9.5 AST 32 ALT 30 Triglycerides 98 Cholesterol 160 LDL Cholesterol, Calc 105 H HDL Cholesterol 36 L Vitamin B12 389 25-OH Vitamin D Total 27.3 L TSH 2.09 Ur Specific [place] 1.020 Urine Protein 100 (2+) H Urine Glucose (UA) Negative Urine Blood Negative Urine Nitrite Negative Ur Leukocyte Esterase Negative Microalb/Creat Ratio 643.5 H Assessment and Plan Assessment & Plan (1) Benign essential hypertension: Code(s): I10 - Essential (primary) hypertension Plan: Reinforced low sodium diet - goal is systolic BP of 120 mm or less Continue Losartan 100 mg + 25 mg (125 mg) QD and Chlorthalidone 25 mg QD Follow up with nephrology as scheduled - patient was seeing Dr. Sterling previously in [place] and was referred back to Dr. Sterling here at [facility] for nephrology follow up at his last visit States that he was not able to keep his previous appointment and has not been able to reschedule yet - will try calling Dr. Sterling's office to reschedule his appt GISELA (2) Pure hypercholesterolemia: Code(s): E78.00 - Pure hypercholesterolemia, unspecified Plan: Results of his labs done last week reviewed and discussed with patient Reinforced low cholesterol diet Continue Atorvastatin 80 mg QD Will recheck his labs and fasting lipids in 4 months for follow up (3) Impaired fasting glucose: Code(s): R73.01 - Impaired fasting glucose Plan: His HgbA1c was at 6.4% on his labs done last week; was at 6.0% a few months ago Reinforced low calorie/low carb diet, exercise and weight loss Patient wishes to continue with diet modification for now and avoid taking any Rx for his blood sugar as much as possible Will recheck his FBS and HgbA1c again in 4 months for follow-up (4) Persistent proteinuria: Comment: due to obesity-related secondary FSGS - diagnosed by renal Bx Code(s): R80.1 - Persistent proteinuria, unspecified Plan: 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 Alejandra) as scheduled - is being referred back to Dr. Sterling as he switched his practice over here to [facility] Patient has also reportedly been advised to consider bariatric (gastric sleeve) surgery to help improve his health and comorbidities - he has explored weight management recently and remains hesitant to undergo bariatric surgery at present (5) Vitamin D deficiency: Code(s): E55.9 - Vitamin D deficiency, unspecified Plan: Continue Vitamin D3 2000 units QD (6) GERD without esophagitis: Code(s): K21.9 - Gastro-esophageal reflux disease without esophagitis Plan: Dietary restrictions reinforced He used to take Omeprazole 20 mg QD but states that he has not needed to take his Rx in a while now (7) Ulcerative colitis without complications: Comment: (+) diffuse ulcerative colitis diagnosed on previous colonoscopy in 2002 (Dr. Ayala) Code(s): K51.90 - Ulcerative colitis, unspecified, without complications Qualifiers: Ulcerative colitis location: unspecified ulcerative colitis location Qualified Code(s): K51.90 - Ulcerative colitis, unspecified, without complications Plan: Currently stable with no acute flare ups Colonoscopy done in 2013 came out normal and thinks that he was due for repeat colonoscopy in May 2019 but this was delayed/held up due to the COVID-19 pandemic Reviewing his 2013 biopsy revealed findings of a quiescent colitis with no evidence of dysplasia and Dr. Ayala actually recommended back then that patient can wait up to 10 years for a repeat colonoscopy if he has no recurrent flare up s of his colitis - he is now due for repeat colonoscopy He was previously referred back to Dr. Ayala and he is now scheduled for his appointment in December 2023 (8) Poison cierra dermatitis: Code(s): L23.7 - Allergic contact dermatitis due to plants, except food Plan: Per request, will start patient on oral prednisone taper for his recent poison cierra dermatitis (9) Obesity (BMI 30-39.9): Code(s): E66.9 - Obesity, unspecified Plan: Reinforced diet/exercise as tolerated /lose weight He has been advised by Nephrology to consider gastric sleeve / bariatric surgery to help improve his health - patient has obesity-related secondary FSGS and persistent proteinuria and has been counseled that this can improve with significant weight loss He was referred previously to weight management for further evaluation but patient remains very hesitant to undergo bariatric surgery at this time Plan Follow up in 4 months Orders: Orders Hemoglobin A1c 4 Months E11.9 - Type 2 diabetes mellitus without complications Comprehensive [place]. Panel Fast 4 Months E78.00 - Pure hypercholesterolemia, unspecified Microalbumin, Random (w Creat) 4 Months E11.9 - Type 2 diabetes mellitus with out complications TSH reflex Free T4 4 Months E78.00 - Pure hypercholesterolemia, unspecified Lipid Panel 4 Months E78.00 - Pure hypercholesterolemia, unspecified Complete Blood Count Auto Diff 4 Months D64.9 - Anemia, unspecified UA CC w/rflx Micro + Cult 4 Months R30.0 - Dysuria Vitamin D 25-OH Total 4 Months E55.9 - Vitamin D deficiency, unspecified Medications: New prednisone 4 tablets x 2 days, then 3 tablets x 2 days, then 2 tablets x 2 days, then 1 tablet x 2 days 8 days 20 tabs 0RF L23.7 - Allergic contact dermatitis due to plants, except food Refilled losartan To be taken together with Losartan 25 mg for a total of 125 mg DAILY DOSE 100 mg PO DAILY 90 days 90 tabs 1RF atorvastatin 80 mg PO BEDTIME 90 days 90 tabs 3RF E78.00 - Pure hypercholesterolemia, unspecified chlorthalidone 25 mg PO DAILY 90 days 90 tabs 1RF cholecalciferol (vitamin D3) 50 mcg PO DAILY 90 days 90 tabs 3RF R79.89 - Other specified abnormal findings of blood chemistry losartan To be taken together with Losartan 100 mg for a total of 125 mg DAILY DOSE 25 mg PO DAILY 90 days 90 tabs 1RF Coding Level of Care Code Est Pt Level 4 (77244) Diagnoses Benign essential hypertension I10 Pure hypercholesterolemia E78.00 Impaired fasting glucose R73.01 Persistent proteinuria R80.1 Vitamin D deficiency E55.9 GERD without esophagitis K21.9 Ulcerative colitis without complications, unspecified location K51.90 Ulcerative colitis location: unspecified ulcerative colitis location Poison cierra dermatitis L23.7 Obesity (BMI 30-39.9) E66.9
[2023-11-16 16:09] VITALS: BP 130/96
== END 2023-11-16 16:13 | disposition home or self-care (01) ==
LOC: HO.HMGH 15:25
PROVIDERS: PCP Internal Medicine; Visit Provider Internal Medicine
DX: I10 Essential (primary) hypertension (principal); E78.00 Pure hypercholesterolemia, unspecified; K51.90 Ulcerative colitis, unspecified, without complications; R73.01 Impaired fasting glucose; R80.1 Persistent proteinuria, unspecified; E55.9 Vitamin D deficiency, unspecified; K21.9 Gastro-esophageal reflux disease without esophagitis; L23.7 Allergic contact dermatitis due to plants, except food; E66.9 Obesity, unspecified
CPT/HCPCS: 99214

== ENCOUNTER 2024-03-16 05:59 | Outpatient (REF) | payer OTHER, SELFPAY ==
[2024-03-16 06:12] LABS: MANUAL DIFF FLAG NO
[2024-03-16 07:50] LABS: Appearance Urine Clear; Color Urine Yellow; Glucose Urine UA Negative (Negative); Leukocyte Esterase Urine Negative (Negative); Nitrite Urine Negative (Negative); UMIC TRIGGER UACC YES; Urine Blood Negative (Negative); Urine Ketones Negative (Negative); Urine Protein 300 (3+) mg/dL (Neg-Trace)
[2024-03-16 07:55] LABS: Bacteria Urine None Seen (None Seen); Hyaline Casts Urine 0-2 /LPF (0-2); RBC Urine 0-2 /HPF (0-2); Squamous Epithelial Cell Urine 0-2 /HPF (0-2); WBC Urine 0-5 /HPF (0-5)
[2024-03-16 07:57] LABS: Basophils Percent Auto 0.5 % (0-2); Eosinophils Absolute Auto 0.2 X10*3/uL (0.0-0.4); Eosinophils Percent Auto 3.2 % (0-4); Hematocrit 48.7 % (42.0-52.0); Hemoglobin 16.8 g/dl (14.0-18.0); Imm Gran Abs Auto 0.08 X10*3/uL (0.00-0.03); Imm Gran Pct Auto 1.4 % (0.0-0.4); Lymphocytes Absolute Auto 1.8 X10*3/uL (1.2-4.9); Lymphocytes Percent Auto 29.9 % (20-40); Mean Corpuscular HGB Conc 34.5 g/dl (31.0-36.0); Mean Corpuscular Volume 89.9 fL (80.0-98.0); Mean Platelet Volume 11.2 fL (9.4-12.4); Monocytes Absolute Auto 0.6 X10*3/uL (0.1-1.2); Monocytes Percent Auto 9.7 % (2-11); Neutrophils Absolute Auto 3.2 x10*3/uL (2.0-8.3); Neutrophils Percent Auto 55.3 % (45-73); Platelet Count 215 X10*3/uL (160-400); Red Blood Count 5.42 X10*6/uL (4.60-5.80); Red Cell Distribution Width 12.8 % (11.0-16.0); White Blood Count 5.9 X10*3/uL (4.8-10.8)
[2024-03-16 08:03] LABS: Estimated Average Glucose 134 mg/dL; Hemoglobin A1c % 6.3 % (<6.0)
[2024-03-16 08:34] LABS: Creatinine Urine 149.68 mg/dL
[2024-03-16 08:45] LABS: Microalbum/Creatinine Ratio Ur 856.4 ug/mg cr (<30)
[2024-03-16 08:49] LABS: Alanine Aminotransferase 26 U/L (0-40); Albumin Level 3.8 g/dL (3.5-5.0); Alkaline Phosphatase 87 U/L (39-117); Anion Gap 12 (12-20); Aspartate Amino Transferase 20 U/L (5-37); Bilirubin Total 0.7 mg/dL (0.0-1.0); Blood Urea Nitrogen 15 mg/dL (9-16); Carbon Dioxide 32 mmol/L (22-29); Chloride 99 mmol/L (96-108); Cholesterol 165 mg/dL (<200); Estimated Glomerular Filt Rate 59; Glucose Fasting 114 mg/dL (60-99); HDL Cholesterol 34 mg/dL (>40); LDL Cholesterol Calculated 115 mg/dL (<100); Potassium 3.5 mmol/L (3.3-5.1); Sodium 139 mmol/L (135-145); TSH reflex Free T4 1.68 uIU/mL (0.32-4.0); Total Protein 7.3 g/dL (6.5-8.0); Triglycerides 82 mg/dL (<150); Vitamin D 25-OH Total 33.9 ng/mL (>30)
== END 2024-03-16 06:00 | disposition home or self-care (01) ==
LOC: HO.LAB 05:59
PROVIDERS: PCP Internal Medicine; Visit Provider Internal Medicine
DX: E11.9 Type 2 diabetes mellitus without complications (principal); R30.0 Dysuria; E55.9 Vitamin D deficiency, unspecified; E78.00 Pure hypercholesterolemia, unspecified; D64.9 Anemia, unspecified
CPT/HCPCS: 36415; 80053; 80061; 81001; 82043; 82306; 82570; 83036; 84443; 85025

== ENCOUNTER 2024-03-19 15:26 | Outpatient (AMB) | payer OTHER, SELFPAY ==
[2024-03-19 15:41] VITALS: BP 140/82; PULSE 81; O2SAT 94; BMI 40.8
--- NOTE | 2024-03-19 15:41 | MHC.PC.OV ---
Vital Signs 03/19/24 15:41 Height 5 ft 9 in Weight 276 lb BMI 40.8 BP 140/82 H Blood Pressure Location Lt brachial Position Sitting Pulse 81 Pulse Source Pulse Oximeter Pulse Oximetry (%) 94 Oxygen Delivery Method Room Air Intake Visit Reasons: DM, hyperlipidemia, proteinuria Geriatric Psychiatrist Required: No Accompanied by: Self / Same As Patient Allergies No Known Allergies Allergy (Verified 03/19/24 16:09) Medication List - Last Reconciled 03/19/24 by Chi Cruz MD atorvastatin 80 mg PO BEDTIME 90 days blood pressure monitor As directed chlorthalidone 25 mg PO DAILY 90 days cholecalciferol (vitamin D3) 50 mcg PO DAILY 90 days losartan 100 mg PO DAILY 90 days losartan 25 mg PO DAILY 90 days Tobacco use date assessed: 03/19/24 Dental Screening Dental Screen Date: 03/19/24 HPI DM, hyperlipidemia, proteinuria HPI Details Patient comes in today for his follow-up visit States that he feels okay He denies any headaches or dizziness Denies any chest pains, no increased shortness of breath No nausea/vomiting, no abdominal pain No change in bowel habits noted He had his follow up labs done a few days ago - to discuss his results [facility] Medical History Bilateral hand pain FSGS (focal segmental glomerulosclerosis) Obesity (BMI 30-39.9) Ulcerative colitis without complications Persistent proteinuria Vitamin D deficiency GERD without esophagitis Pure hypercholesterolemia Benign essential hypertension Surgical History Hx of colonoscopy H/O right knee surgery H/O left knee surgery Family History Father Diabetes Hypertension CVD (cardiovascular disease) Mother Medical history unknown Social History Housing: House Patient Tobacco Use Status: Never used Tobacco e-Cigarette/Vaping Use: Never Used service: No Current occupational status: employed Cognitive needs: No Hearing needs: No Vision needs: No Questionnaire PHQ-9 Over the last 2 weeks, how often have you been bothered by any of the following problems? 1. Little interest or pleasure in doing things: not at all 2. Feeling down, depressed, or hopeless: not at all 3. Trouble falling or staying asleep, or sleeping too much: not at all 4. Feeling tired or having little energy: not at all 5. Poor appetite or overeating: not at all 6. Feeling bad about yourself - or that you are a failure or have let yourself or your family down: not at all 7. Trouble concentrating on things, such as reading the newspaper or watching television: not at all 8. Moving or speaking so slowly that other people could have noticed. Or the opposite - being so fidgety or restless that you have been moving around a lot more than usual: not at all 9. Thoughts that you would be better off or of hurting yourself in some way: not at all Total score: 0 Depression Screening Interpretation: Negative Depression Screening Done: Yes 47003 - PHQ-9 Billing: Yes Source: Developed by Drs. Andre Amaral, Brenna Hamilton, Florin Glover and colleagues, with an educational sumaya from [employer]. Thrive Questionnaire Date Thrive assessed: 03/19/24 I am a: Patient What is your living situation today?: I have a steady place to live Within the past 12 months, did the food you bought not last and you didn't have the money to get more?: Never true Within the past 12 months, did you worry whether your food would run out before you got money to buy more?: Never true Do you have trouble paying for medicines?: No Do you have trouble getting transportation to medical appointments?: No Do you have trouble paying your heating and electricity bill?: No Do you have trouble taking care of your child, family member or friend?: No Do you have trouble with day-to-day activities such as bathing, preparing meals, shopping, managing finances, etc.?: No Are you currently unemployed and looking for a job?: No Are you interested in more education?: No Please select the resources that you would like help with: None Currently or been in a relationship where the following occur: No concerns reported THRIVE Score: 0 AUDIT C Alcohol Use Questionnaire (AUDIT-C) 1. How often do you have a drink containing alcohol?: Never 2. How many drinks containing alcohol do you have on a typical day when you are drinking?: 1 or 2 (0) 3. How often do you have six or more drinks on one occasion?: Never Total Score: 0 Score Reviewed/Action Taken: Yes JEY-7 AMB Questionnaire JEY-7 Date JEY - 7 assessed: 03/19/24 Feeling nervous, anxious, or on edge: 0 = Not at all Not being able to stop or control worryin = Not at all Worrying too much about different things: 0 = Not at all Trouble relaxin = Not at all Being so restless that it is hard to sit still: 0 = Not at all Becoming easily annoyed or irritable: 0 = Not at all Feeling afraid as if something awful might happen: 0 = Not at all Total JEY-7 score (0-4 normal; 5-9 mild; 10-14 moderate; 15-21 severe): 0 Source: Developed by Drs. Andre Amaral, Brenna Hamilton, Florin Glover and colleagues, with an educational sumaya from [employer]. Review of Systems Const Denies chills, Denies fatigue, Denies fever(s) and Denies headache(s) ENT Denies dysphagia, Denies dizziness, Denies otalgia, Denies headache(s), Denies neck pain, Denies odynophagia and Denies sore throat Card Denies chest pain, Denies palpitations and Denies dyspnea Resp Denies chest congestion, Denies cough and Denies dyspnea GI Denies abdominal pain, Denies hematochezia, Denies constipation, Denies dysphagia, Denies diarrhea, Denies nausea, Denies odynophagia and Denies vomiting Denies difficulty urinating, Denies dysuria, Denies nocturia and Denies urinary frequency Musc Denies back pain and Denies neck pain Skin/Breast Denies rash Neuro Denies dizziness and Denies headache(s) Endo Denies fatigue and Denies palpitations Physical exam (Primary Care) Vital Signs: Last Vital Signs Pulse 81 03/19/24 15:41 BP 140/82 H 03/19/24 15:41 Pulse Ox 94 03/19/24 15:41 Oxygen Delivery Method Room Air 03/19/24 15:41 BMI result Body Mass Index 40.8 Tobacco/Smoking Status: Tobacco use Status Tobacco use date assessed 03/19/24 03/19/24 15:42 Patient Tobacco Use Status Never used Tobacco 03/19/24 15:42 e-Cigarette/Vaping Use Never Used 03/19/24 15:42 PHQ-9: PHQ-9 Score PHQ-9: Total score 0 03/19/24 16:13 Depression Screening Interpretation: Negative Thrive Assessment: Date of Thrive Assessment Date Thrive assessed 03/19/24 03/19/24 15:42 Currently or been in a relationship where the following occur: No concerns reported Const General: no acute distress and alert HENMT Ears: TM's normal bilaterally and EAC's normal Throat: Yes posterior oropharynx normal and Yes tonsils normal (no TP congestion) Neck Neck: Yes no lymphadenopathy and Yes supple Thyroid: Thyroid normal Resp Auscultation: clear to auscultation bilaterally, no rales and no wheezes Cardio Rate: regular rate Rhythm: regular rhythm Heart sounds: no murmurs GI Palpation (GI): Soft to palpation and nontender Auscultation: normal bowel sounds General: Yes no CVA tenderness Back/Spine/Pelvis Back: no CVA tenderness Thoracic/Lumbar Spine: No lumbar spinal tenderness Skin Rashes: no rashes Extrem General: Yes no clubbing, cyanosis or edema Results Reviewed Results Reviewed: Laboratory Tests 03/16/24 06:10 WBC 5.9 Hgb 16.8 Hct 48.7 Plt Count 215 Sodium 139 Potassium 3.5 Creatinine 1.24 Estimated GFR 59 Fasting Glucose 114 H Hemoglobin A1c % 6.3 H Calcium 9.0 AST 20 ALT 26 Triglycerides 82 Cholesterol 165 LDL Cholesterol, Calc 115 H HDL Cholesterol 34 L 25-OH Vitamin D Total 33.9 TSH 1.68 Urine pH 7.0 Ur Specific [place] 1.020 Urine Protein 300 (3+) H Urine Glucose (UA) Negative Urine Blood Negative Urine Nitrite Negative Ur Leukocyte Esterase Negative Microalb/Creat Ratio 856.4 H Assessment and Plan Assessment & Plan (1) Benign essential hypertension: Code(s): I10 - Essential (primary) hypertension Plan: Reinforced low sodium diet - goal is systolic BP of 120 mm or less Continue Losartan 100 mg + 25 mg (125 mg) QD and Chlorthalidone 25 mg QD Follow up with nephrology as scheduled - patient was seeing Dr. Sterling previously in [place] and was referred back to Dr. Sterling here at [facility] for nephrology follow up at his last visit States that he was not able to keep his previous appointment and has not been able to reschedule yet - will try calling Dr. Sterling's office to reschedule his appt GISELA (2) Pure hypercholesterolemia: Code(s): E78.00 - Pure hypercholesterolemia, unspecified Plan: Results of his labs done a few days ago reviewed and discussed with patient Reinforced low cholesterol diet Continue Atorvastatin 80 mg QD Will recheck his labs and fasting lipids in 4 months for follow up (3) Impaired fasting glucose: Code(s): R73.01 - Impaired fasting glucose Plan: His HgbA1c was at 6.3% on his labs done last week; was at 6.4% a few months ago Reinforced low calorie/low carb diet, exercise and weight loss Patient wishes to continue with diet modification for now and avoid taking any Rx for his blood sugar as much as possible Will recheck his FBS and HgbA1c again in 4 months for follow-up (4) Persistent proteinuria: Comment: due to obesity-related secondary FSGS - diagnosed by renal Bx Code(s): R80.1 - Persistent proteinuria, unspecified Plan: 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 Alejandra) as scheduled - he is referred back to Dr. Sterling as he switched his practice over here to [facility] Patient has also reportedly been advised to consider bariatric (gastric sleeve) surgery to help improve his health and comorbidities - he has explored weight management recently and remains hesitant to undergo bariatric surgery at present (5) Vitamin D deficiency: Code(s): E55.9 - Vitamin D deficiency, unspecified Plan: Continue Vitamin D3 2000 units QD (6) GERD without esophagitis: Code(s): K21.9 - Gastro-esophageal reflux disease without esophagitis Plan: Dietary restrictions reinforced He used to take Omeprazole 20 mg QD but states that he has not needed to take his Rx in a while now (7) Ulcerative colitis without complications: Comment: (+) diffuse ulcerative colitis diagnosed on previous colonoscopy in 2002 (Dr. Ayala) Code(s): K51.90 - Ulcerative colitis, unspecified, without complications Qualifiers: Ulcerative colitis location: unspecified ulcerative colitis location Qualified Code(s): K51.90 - Ulcerative colitis, unspecified, without complications Plan: Currently stable with no acute flare ups Colonoscopy done in 2013 came out normal and thinks that he was due for repeat colonoscopy in May 2019 but this was delayed/held up due to the COVID-19 pandemic Reviewing his 2013 biopsy revealed findings of a quiescent colitis with no evidence of dysplasia and Dr. Ayala actually recommended back then that patient can wait up to 10 years for a repeat colonoscopy if he has no recurrent flare ups of his colitis - he is now due for repeat colonoscopy He was previously referred back to Dr. Ayala and he is now scheduled for his repeat colonoscopy in April 2024 (8) Obesity (BMI 30-39.9): Code(s): E66.9 - Obesity, unspecified Plan: Reinforced diet/exercise as tolerated /lose weight He has been advised by Nephrology to consider gastric sleeve / bariatric surgery to help improve his health - patient has obesity-related secondary FSGS and persistent proteinuria and has been counseled that this can improve with significant weight loss He was referred previously to weight management for further evaluation but patient remains very hesitant to undergo bariatric surgery at this time Plan Follow up in 4 months Orders: Orders Complete Blood Count Auto Diff 4 Months D64.9 - Anemia, unspecified Lipid Panel 4 Months E78.00 - Pure hypercholesterolemia, unspecified UA CC w/rflx Micro + Cult 4 Months R30.0 - Dysuria Vitamin D 25-OH Total 4 Months E55.9 - Vitamin D deficiency, unspecified Comprehensive Blue. Panel Fast 4 Months E78.00 - Pure hypercholesterolemia, unspecified TSH reflex Free T4 4 Months E78.00 - Pure hypercholesterolemia, unspecified Hemoglobin A1c 4 Months R73.01 - Impaired fasting glucose Referrals Nephrology Referral 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, R80.1 - Persistent proteinuria, unspecified Coding Level of Care Code Est Pt Level 4 (47640) Diagnoses Benign essential hypertension I10 Pure hypercholesterolemia E78.00 Impaired fasting glucose R73.01 Persistent proteinuria R80.1 Vitamin D deficiency E55.9 GERD without esophagitis K21.9 Ulcerative colitis without complications, unspecified location K51.90 Ulcerative colitis location: unspecified ulcerative colitis location Obesity (BMI 30-39.9) E66.9
== END 2024-03-19 16:22 | disposition home or self-care (01) ==
PROVIDERS: PCP Internal Medicine; Visit Provider Internal Medicine
DX: I10 Essential (primary) hypertension (principal); K51.90 Ulcerative colitis, unspecified, without complications; E78.00 Pure hypercholesterolemia, unspecified; R73.01 Impaired fasting glucose; R80.1 Persistent proteinuria, unspecified; E55.9 Vitamin D deficiency, unspecified; K21.9 Gastro-esophageal reflux disease without esophagitis; E66.9 Obesity, unspecified

== ENCOUNTER → 2024-03-19 15:26 | Outpatient (BNVA) | payer OTHER, SELFPAY | PROVIDERS: PCP Internal Medicine; Visit Provider Internal Medicine | DX: I10 Essential (primary) hypertension (principal); E78.00 Pure hypercholesterolemia, unspecified; R73.01 Impaired fasting glucose; R80.1 Persistent proteinuria, unspecified; E55.9 Vitamin D deficiency, unspecified; K21.9 Gastro-esophageal reflux disease without esophagitis; K51.90 Ulcerative colitis, unspecified, without complications; E66.9 Obesity, unspecified; Z68.41 Body mass index [BMI] 40.0-44.9, adult; Z79.899 Other long term (current) drug therapy | CPT/HCPCS: 96127 ==

== ENCOUNTER 2024-04-23 05:59 | Outpatient (REF) | payer OTHER, SELFPAY ==
[2024-04-23 08:06] LABS: Anion Gap 13 (12-20); Blood Urea Nitrogen 21 mg/dL (9-16); Carbon Dioxide 31 mmol/L (22-29); Chloride 101 mmol/L (96-108); Estimated Glomerular Filt Rate > 60; Potassium 3.7 mmol/L (3.3-5.1); Sodium 141 mmol/L (135-145)
[2024-04-23 08:30] LABS: Protein/Creatinine Ratio, Ur 2.33 (<0.2); Total Protein Urine Random 276 mg/dL (<12)
[2024-04-25 21:33] LABS: IgA 348 mg/dL (47-310); IgG 1291 mg/dL (600-1640); IgM 46 mg/dL (50-300)
== END 2024-04-23 06:00 | disposition home or self-care (01) ==
LOC: HO.LAB 05:59
PROVIDERS: PCP Internal Medicine; Visit Provider Internal Medicine Nephrology
DX: N05.1 Unspecified nephritic syndrome with focal and segmental glomerular lesions (principal)
CPT/HCPCS: 80051; 82310; 82565; 82570; 82784; 84156; 84520; 86334; 86335

== ENCOUNTER 2024-04-25 15:42 | Outpatient (AMB) | payer OTHER, SELFPAY ==
[2024-04-25 15:57] VITALS: BP 104/70; PULSE 88; O2SAT 93; BMI 41.1
--- NOTE | 2024-04-25 15:57 | HO.NEPHOV ---
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 He has history of hypertension. He denies being a diabetic. 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 He has not lost any significant weight. His blood pressure has been at goal. He does not have any urinary symptoms or worsening pedal edema. He denies any chest pain, shortness of breath, proximal nocturnal dyspnea, orthopnea or orthostatic symptoms. He claimed to be compliant with his medications. There were no new active complaints at the time this office visit. [facility] Medical History Bilateral hand pain FSGS (focal segmental glomerulosclerosis) Obesity (BMI 30-39.9) Ulcerative colitis without complications Persistent proteinuria Vitamin D deficiency GERD without esophagitis Pure hypercholesterolemia Benign essential hypertension Surgical History Hx of colonoscopy H/O right knee surgery H/O left knee surgery Family History Father Diabetes Hypertension CVD (cardiovascular disease) Mother Medical history unknown Social History Housing: House Patient Tobacco Use Status: Never used Tobacco e-Cigarette/Vaping Use: Never Used service: No Current occupational status: employed Cognitive needs: No Hearing needs: No Vision needs: No Review of Systems Const All systems reviewed & are unremarkable except as noted in HPI and below Physical Exam Vital Signs: Last Vital Signs Pulse 88 04/25/24 15:57 BP 104/70 04/25/24 15:57 Pulse Ox 93 04/25/24 15:57 Oxygen Delivery Method Room Air 04/25/24 15:57 BMI result Body Mass Index 41.1 Const General: comfortable and no acute distress Orientation/consciousness: patient oriented x3 HEENT Head: Yes normocephalic Mouth: Normal oral and palatal mucosa present Eyes EOM: EOMs intact bilaterally Neck Neck: Yes supple Resp Auscultation: clear to auscultation bilaterally Cardio Jugular venous distension: no JVD Rate: regular rate GI Palpation (GI): Soft to palpation Auscultation: normal bowel sounds General: Yes no CVA tenderness Back/Spine/Pelvis Back: no CVA tenderness Skin General skin exam: no rashes or lesions noted Neuro General: patient oriented x3 and moves all extremities Extrem General: Yes no pedal edema Results Reviewed Nephrology Results: Hgb 16.8 g/dl (14.0-18.0) 03/16/24 WBC 5.9 X10*3/uL (4.8-10.8) 03/16/24 Plt Count 215 X10*3/uL (160-400) 03/16/24 Sodium 141 mmol/L (135-145) 04/23/24 Potassium 3.7 mmol/L (3.3-5.1) 04/23/24 Chloride 101 mmol/L (96-108) 04/23/24 Carbon Dioxide 31 mmol/L (22-29) H 04/23/24 BUN 21 mg/dL (9-16) H 04/23/24 Creatinine 0.92 mg/dL (0.5-1.4) 04/23/24 Calcium 9.0 mg/dL (8.4-10.2) 04/23/24 Urine Protein 300 (3+) mg/dL (Neg-Trace) H 03/16/24 Urine Creatinine 118.40 mg/dL 04/23/24 Protein/Creatinin Ratio 2.33 (<0.2) H 04/23/24 Assessment & Plan Assessment & Plan (1) FSGS (focal segmental glomerulosclerosis): Comment: (+) obesity-related secondary FSGS on renal biopsy Code(s): 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 Category: Medical Plan Romain has hypertension for well over 20 years. He has high BMI and proteinuria from obesity related secondary FSGS. He is not known to have any microscopic hematuria. He is on losartan. He is an ideal candidate for gastric sleeve surgery. I am considering adding Jardiance in the future for his renal protective effects. He needs to continue to modify his lifestyle and lose significant weight. He avoids nonsteroidal anti-inflammatories if at all possible and maintain good hydration. I have asked him to do a 24 hour urine for protein in couple months before following up with me for further management. Answered all questions. Orders: Orders Protein, 24 Hr Urine Group 2 Months 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 Coding Level of Care Code Est Pt Level 4 (08936) Diagnoses FSGS (focal segmental glomerulosclerosis) N05.1
== END 2024-04-25 16:24 | disposition home or self-care (01) ==
LOC: HO.HKA 15:42
PROVIDERS: PCP Internal Medicine; Referring Provider Internal Medicine; Visit Provider Internal Medicine Nephrology
DX: N05.1 Unspecified nephritic syndrome with focal and segmental glomerular lesions (principal)
CPT/HCPCS: 99214

== ENCOUNTER → 2024-04-25 15:42 | Outpatient (BNVA) | payer OTHER, SELFPAY | PROVIDERS: PCP Internal Medicine; Referring Provider Internal Medicine; Visit Provider Internal Medicine Nephrology ==

== ENCOUNTER 2024-05-14 07:33 | Day surgery (SDC) | payer OTHER, SELFPAY ==
[2024-05-10 13:26] VITALS: BMI 39.0
--- NOTE | 2024-05-11 08:21 | P.CONAN_ITS ---
Documented by User: Love Burr NP 05/11/24 08:22 HPI - Anesthesia Eval Consult details Narrative: 59yo M for Colonoscopy PMFSH Active Problems Active Problems: All Active Problems Poison cierra dermatitis (Acute) Colon cancer screening (Acute) Bilateral hand pain (Acute) FSGS (focal segmental glomerulosclerosis) (Acute) Impaired fasting glucose (Acute) Arthralgia (Acute) Elevated fasting glucose (Acute) Obesity (BMI 30-39.9) (Acute) Ulcerative colitis without complications (Acute) Persistent proteinuria (Acute) Vitamin D deficiency (Acute) GERD without esophagitis (Acute) Pure hypercholesterolemia (Acute) Benign essential hypertension (Acute) Past Medical History Medical History Bilateral hand pain FSGS (focal segmental glomerulosclerosis) Obesity (BMI 30-39.9) Ulcerative colitis without complications Persistent proteinuria Vitamin D deficiency GERD without esophagitis Pure hypercholesterolemia Benign essential hypertension Family History Family History Father Diabetes Hypertension CVD (cardiovascular disease) Mother Medical history unknown Surgical History Surgical History Hx of colonoscopy H/O right knee surgery H/O left knee surgery Social History Social History Housing: House Are you a primary child care worker to a significant other at home: No Do you presently have visiting nurse or other home services: No Patient Tobacco Use Status: Former Tobacco user Tobacco use type: Cigarette Years Smoked: 4 Smoked in Last 30 Days: No e-Cigarette/Vaping Use: Never Used Use of substances other than those prescribed or required for medical reasons: Yes Substance Use Type Other:: edibles Substance Use Frequency: Weekly Have you been hit, kicked, punched, or otherwise hurt by someone within the past year? If so, by whom?: No Are you DNR?: No Advance Directives: No Advance Directives Information Provided: No Advance Directives on File: No Recently lost weight without trying: No How much weight loss: Not applicable Eating poorly because of decreased appetite: No Nutrition screen score: 0 Nutrition Risks: No Nutritional Risk Poor oral hygiene: No service: No Current occupational status: employed Cognitive needs: No Hearing needs: No Vision needs: No Meds Allergies Allergy/AdvReac Type Severity Reaction Status Date / Time No Known Allergies Allergy Verified 05/14/24 08:01 Exam Height,Weight and Vital Signs: Height 5 ft 10 in Weight 123.377 kg Assessment and Plan Assessment Anesthesia Assessment: Chart Reviewed Documented by User: Bin Bearden MD 05/14/24 08:51 PMFSH Past Medical History Medical History Bilateral hand pain FSGS (focal segmental glomerulosclerosis) Obesity (BMI 30-39.9) Ulcerative colitis without complications Persistent proteinuria Vitamin D deficiency GERD without esophagitis Pure hypercholesterolemia Benign essential hypertension Family History Family History Father Diabetes Hypertension CVD (cardiovascular disease) Mother Medical history unknown Family history of problems with anesthesia: No Surgical History Surgical History Hx of colonoscopy H/O right knee surgery H/O left knee surgery History of Problems with Anesthesia: No Social History Social History Housing: House Are you a primary child care worker to a significant other at home: No Do you presently have visiting nurse or other home services: No Patient Tobacco Use Status: Former Tobacco user Tobacco use type: Cigarette Years Smoked: 4 Smoked in Last 30 Days: No e-Cigarette/Vaping Use: Never Used Use of substances other than those prescribed or required for medical reasons: Yes Substance Use Type Other:: edibles Substance Use Frequency: Weekly Have you been hit, kicked, punched, or otherwise hurt by someone within the past year? If so, by whom?: No Are you DNR?: No Advance Directives: No Advance Directives Information Provided: No Advance Directives on File: No Recently lost weight without trying: No How much weight loss: Not applicable Eating poorly because of decreased appetite: No Nutrition screen score: 0 Nutrition Risks: No Nutritional Risk Poor oral hygiene: No service: No Current occupational status: employed Cognitive needs: No Hearing needs: No Vision needs: No Meds Allergies Allergy/AdvReac Type Severity Reaction Status Date / Time No Known Allergies Allergy Verified 05/14/24 08:01 Exam Airway Mallampati Class: II TM Dist: <=3cm Neck ROM: Full Loose/Missing/Broken Teeth: No Heart: ok Lungs: ok, Sat 95% room air Assessment and Plan Assessment Anesthesia Assessment: Anesthesia Plan Discussed Final Anesthetic Review Family History of Problems with Anesthesia: No History of Problems with Anesthesia: No NPO: Yes ASA Class: III Final Preanesthetic Review: No Changes in Pt Med Stat, Meds/Allgs Chart Reviewed, Consent Obtained/Reviewed and Anes Risks/Benef Reviewed Patient Risk: Intermediate Procedure Risk: Low Anesthetic Plan Anesthetic Plan: MAC: and Agree w/ Assess. and Plan Disposition: Standard PACU
[2024-05-14 08:02] VITALS: BP 163/98; PULSE 87; RESP 16; TEMP 36.8; O2SAT 95; BMI 39.9
[2024-05-14] MEDS: Lactated Ringers 1,000 ML 100 ML IVCONT (08:13)
[2024-05-14 09:25] VITALS: BP 102/59; PULSE 75; RESP 18; TEMP 36.3; O2SAT 91
--- NOTE | 2024-05-14 09:27 | P.BOP_ITS ---
Brief Operative Note Date of Service: 05/14/24 Pre-op diagnosis: Ulcerative colitis, screening Post-op diagnosis: other (Proctitis, Colon polyp) Procedure: Colonoscopy to the cecum with biopsies and cold snare polypectomy x 1 at 60cm Surgeon: Andre Ayala MD Anesthesia: MAC Was an Braid Folder used for this Procedure?: No Estimated blood loss (mL): 2.0 Pathology: other (A. Ascending colon B. Transverse colon C. Descending colon D. Polyp at 60cm E. Bx around polyp site at 60cm F. Sigmoid colon G. Rectum) Condition: stable Disposition: PACU
[2024-05-14 09:35] VITALS: BP 102/59; PULSE 77; RESP 16; TEMP 36.1; O2SAT 94
--- NOTE | 2024-05-14 09:57 | OP_ITS ---
DATE OF SERVICE: 05/14/2024 SURGEON: Andre Ayala MD INDICATIONS: The patient presents for evaluation of colorectal cancer screening in regard to a longstanding history of ulcerative colitis. Full consent obtained from him for this, including risks of bleeding and perforation. PREOPERATIVE DIAGNOSIS: POSTOPERATIVE DIAGNOSIS: Colorectal cancer screening and history of ulcerative colitis, colon polyp, proctitis, rule out dysplasia. PROCEDURE PERFORMED: Colonoscopy to the cecum with multiple biopsies and cold snare polypectomy x1. ESTIMATED BLOOD LOSS: COMPLICATIONS: ANESTHESIA: Monitored anesthesia care. ASSISTANTS: SPECIMENS: PREOPERATIVE DIAGNOSES: Colorectal cancer screening and history of ulcerative colitis. DESCRIPTION OF PROCEDURE: The patient was placed in the left lateral decubitus position. The digital rectal exam revealed no abnormalities. The [employer] video pediatric colonoscope was entered into the rectum advanced to the cecum with the assistance of abdominal wall pressure. Once in the cecum, I did identify normal-appearing cecal pouch with appendiceal orifice and a normal-appearing ileocecal valve. The entire cecum and ileocecal valve appeared normal. The scope was slowly withdrawn assessing all mucosal surfaces carefully. Preparation was excellent. At 60 cm was a flat, approximately 5 mm polyp, which was removed by cold snare polypectomy and recovered by suction. The polypectomy site appeared clean, without any sign of residual polyp nor significant bleeding. I did not visualize any other polyps, nor angiodysplasia. There was a mild amount of sigmoid diverticulosis. I did obtain multiple biopsies in the ascending colon, transverse colon, descending colon, from around the polyp site at 60 cm, from the sigmoid colon, and the rectum. The only active colitis I noted was in the rectum consistent with a proctitis. Proximal to that the entire colonic mucosa otherwise appeared normal in regard to no sign of any active colitis. In the rectum, scope was retroflexed visualizing some small internal hemorrhoids, but no other pathology. The rectal mucosa appeared normal. The scope was straightened and withdrawn from the patient. He tolerated the procedure well and was returned to recovery area in stable condition. IMPRESSION: 1. History of ulcerative colitis, rule out dysplasia. 2. Active proctitis. 3. Colon polyp. 4. Mild diverticulosis. 5. Internal hemorrhoids. PLAN: The results of biopsies will be checked. I would recommend a repeat colonoscopy in 5 years for further surveillance assuming there is no dysplasia seen on today's biopsies. He reports that his ulcerative colitis remains asymptomatic and therefore, I will not offer him treatment despite the findings on the exam in regard to the proctitis. I did advise him and his to certainly call if he develops any symptoms such as diarrhea, urgency, or rectal bleeding. If things are otherwise stable, he will see me in 5 years for the next colonoscopy. He was advised not to use any aspirin or NSAIDs for 1 week, although he should try to avoid them shelter so as not to aggravate the ulcerative colitis.. MD ANGEL Maldonado/ARNAV / [phone] MTDD
== END 2024-05-14 09:37 | disposition home or self-care (01) ==
PROVIDERS: PCP Internal Medicine; Visit Provider Internal Medicine
PROC: 0DJD8ZZ Inspection of Lower Intestinal Tract, Via Natural or Artificial Opening Endoscopic (ICD-10-PCS; CPT 45378; principal; 2024-05-14 08:30)
DX: Z12.11 Encounter for screening for malignant neoplasm of colon (principal); K51.00 Ulcerative (chronic) pancolitis without complications; K62.89 Other specified diseases of anus and rectum; D12.4 Benign neoplasm of descending colon; I10 Essential (primary) hypertension; E78.5 Hyperlipidemia, unspecified; Z79.1 Long term (current) use of non-steroidal anti-inflammatories (NSAID); Z79.899 Other long term (current) drug therapy
CPT/HCPCS: 45385; 45380; 88305; J2003; J2704; J3010

== ENCOUNTER 2024-07-16 06:08 | Outpatient (REF) | payer OTHER, SELFPAY ==
[2024-07-16 06:26] LABS: MANUAL DIFF FLAG NO
[2024-07-16 07:21] LABS: Basophils Percent Auto 0.3 % (0-2); Eosinophils Absolute Auto 0.2 X10*3/uL (0.0-0.4); Eosinophils Percent Auto 3.3 % (0-4); Hematocrit 47.2 % (42.0-52.0); Hemoglobin 16.5 g/dl (14.0-18.0); Imm Gran Abs Auto 0.05 X10*3/uL (0.00-0.03); Imm Gran Pct Auto 0.9 % (0.0-0.4); Lymphocytes Absolute Auto 1.8 X10*3/uL (1.2-4.9); Lymphocytes Percent Auto 30.8 % (20-40); Mean Corpuscular Hemoglobin 31.1 pg (27.0-33.0); Mean Corpuscular Volume 89.1 fL (80.0-98.0); Mean Platelet Volume 10.7 fL (9.4-12.4); Monocytes Absolute Auto 0.6 X10*3/uL (0.1-1.2); Monocytes Percent Auto 9.5 % (2-11); Neutrophils Absolute Auto 3.2 x10*3/uL (2.0-8.3); Neutrophils Percent Auto 55.2 % (45-73); Platelet Count 232 X10*3/uL (160-400); Red Cell Distribution Width 13.1 % (11.0-16.0); White Blood Count 5.8 X10*3/uL (4.8-10.8)
[2024-07-16 07:30] LABS: Estimated Average Glucose 134 mg/dL; Hemoglobin A1C 197.7558 umol/L; Hemoglobin A1c % 6.3 % (<6.0); Total Hemoglobin (HGBA1C) 4333.9587 umol/L
[2024-07-16 07:33] LABS: Appearance Urine Clear; Color Urine Yellow; Glucose Urine UA Negative (Negative); Leukocyte Esterase Urine Negative (Negative); Nitrite Urine Negative (Negative); PH 6.5 (5.0-9.0); Specific Gravity - Urine >= 1.030 (1.005-1.025); UMIC TRIGGER UACC YES; Urine Blood Negative (Negative); Urine Ketones Negative (Negative); Urine Protein 300 (3+) mg/dL (Neg-Trace)
[2024-07-16 07:44] LABS: Bacteria Urine None Seen (None Seen); Hyaline Casts Urine 0-2 /LPF (0-2); RBC Urine 0-2 /HPF (0-2); Squamous Epithelial Cell Urine 0-2 /HPF (0-2); WBC Urine 0-5 /HPF (0-5)
[2024-07-16 08:02] LABS: Creatinine, mg/dL 120.47
[2024-07-16 08:07] LABS: Alanine Aminotransferase 29 U/L (0-40); Albumin Level 3.7 g/dL (3.5-5.0); Alkaline Phosphatase 85 U/L (39-117); Anion Gap 13 (12-20); Aspartate Amino Transferase 26 U/L (5-37); Bilirubin Total 0.8 mg/dL (0.0-1.0); Blood Urea Nitrogen 20 mg/dL (9-16); Calcium 8.8 mg/dL (8.4-10.2); Carbon Dioxide 29 mmol/L (22-29); Chloride 103 mmol/L (96-108); Cholesterol 185 mg/dL (<200); Estimated Glomerular Filt Rate > 60; Glucose Fasting 110 mg/dL (60-99); HDL Cholesterol 35 mg/dL (>40); LDL Cholesterol Calculated 135 mg/dL (<100); Potassium 3.6 mmol/L (3.3-5.1); Sodium 141 mmol/L (135-145); Total Protein 7.3 g/dL (6.5-8.0); Triglycerides 77 mg/dL (<150)
[2024-07-16 08:09] LABS: Creatinine, 24Hr Urine 2.1 G/Day (1.0-2.0); Total Volume 24 Hour Urine 1775 mL
[2024-07-16 08:19] LABS: Protein 24 Hr Urine 3515 mg/Day (<150); Protein mg/dL 198 mg/dL
[2024-07-16 08:23] LABS: TSH reflex Free T4 1.99 uIU/mL (0.32-4.0); Vitamin D 25-OH Total 31.1 ng/mL (>30)
== END 2024-07-16 06:09 | disposition home or self-care (01) ==
LOC: HO.LAB 06:08
PROVIDERS: Internal Medicine Nephrology; PCP Internal Medicine; Visit Provider Internal Medicine
DX: D64.9 Anemia, unspecified (principal); E78.00 Pure hypercholesterolemia, unspecified; R73.01 Impaired fasting glucose; E55.9 Vitamin D deficiency, unspecified; N05.1 Unspecified nephritic syndrome with focal and segmental glomerular lesions
CPT/HCPCS: 36415; 80053; 80061; 81001; 82306; 83036; 84156; 84443; 85025

== ENCOUNTER 2024-07-23 15:24 | Outpatient (AMB) | payer OTHER, SELFPAY ==
[2024-07-23 15:33] VITALS: BP 142/90; PULSE 83; O2SAT 92; BMI 39.9
--- NOTE | 2024-07-23 15:33 | A.OFFPC_ITS ---
Vital Signs 07/23/24 15:33 07/23/24 15:59 Height 5 ft 10 in Weight 278 lb 2 oz BMI 39.9 BP 142/90 H 136/86 Blood Pressure Location Lt brachial Lt brachial Position Sitting Sitting Pulse 83 Pulse Source Pulse Oximeter Pulse Oximetry (%) 92 Oxygen Delivery Method Room Air Intake Visit Reasons: 4 Months F/U It Program Engagement Director Required: No Accompanied by: Self / Same As Patient Allergies No Known Allergies Allergy (Verified 07/23/24 15:49) Medication List - Last Reconciled 07/23/24 by Chi Cruz MD atorvastatin 80 mg PO BEDTIME 90 days blood pressure monitor As directed chlorthalidone 25 mg PO DAILY 90 days cholecalciferol (vitamin D3) 50 mcg PO DAILY 90 days losartan 100 mg PO DAILY 90 days losartan 25 mg PO DAILY 90 days Tobacco use date assessed: 07/23/24 Dental Screening Dental Screen Date: 07/23/24 Did you have a dental visit in the last 12 months?: No Did you have a dental problem in the last 6 months where you did not have access to dental care?: No Was dental information given to patient?: No HPI 4 Months F/U HPI Details Patient comes in today for his follow-up visit States that he feels okay He denies any headaches or dizziness Denies any chest pains, no shortness of breath No nausea/vomiting, no abdominal pain No change in bowel habits noted Needs several of his Rx refilled He had his follow-up labs done last week - to discuss his results [facility] Medical History Bilateral hand pain FSGS (focal segmental glomerulosclerosis) Obesity (BMI 30-39.9) Ulcerative colitis without complications Persistent proteinuria Vitamin D deficiency GERD without esophagitis Pure hypercholesterolemia Benign essential hypertension Surgical History Hx of colonoscopy H/O right knee surgery H/O left knee surgery Family History Father Diabetes Hypertension CVD (cardiovascular disease) Mother Medical history unknown Social History Housing: House Are you a primary critical care technician to a significant other at home: No Do you presently have visiting nurse or other home services: No Patient Tobacco Use Status: Former Tobacco user Tobacco use type: Cigarette Years Smoked: 4 e-Cigarette/Vaping Use: Never Used service: No Current occupational status: employed Cognitive needs: No Hearing needs: No Vision needs: No Questionnaire PHQ-9 Over the last 2 weeks, how often have you been bothered by any of the following problems? 1. Little interest or pleasure in doing things: not at all 2. Feeling down, depressed, or hopeless: not at all 3. Trouble falling or staying asleep, or sleeping too much: not at all 4. Feeling tired or having little energy: not at all 5. Poor appetite or overeating: not at all 6. Feeling bad about yourself - or that you are a failure or have let yourself or your family down: not at all 7. Trouble concentrating on things, such as reading the newspaper or watching television: not at all 8. Moving or speaking so slowly that other people could have noticed. Or the opposite - being so fidgety or restless that you have been moving around a lot more than usual: not at all 9. Thoughts that you would be better off or of hurting yourself in some way: not at all Total score: 0 Depression Screening Interpretation: Negative Depression Screening Done: Yes 68698 - PHQ-9 Billing: Yes Source: Developed by Drs. Andre Amaral, Brenna Hamilton, Florin Glover and colleagues, with an educational sumaya from [employer]. Thrive Questionnaire Date Thrive assessed: 07/23/24 I am a: Patient What is your living situation today?: I have a steady place to live Within the past 12 months, did the food you bought not last and you didn't have the money to get more?: Never true Within the past 12 months, did you worry whether your food would run out before you got money to buy more?: Never true Do you have trouble paying for medicines?: No Do you have trouble getting transportation to medical appointments?: No Do you have trouble paying your heating and electricity bill?: No Do you have trouble taking care of your child, family member or friend?: No Do you have trouble with day-to-day activities such as bathing, preparing meals, shopping, managing finances, etc.?: No Are you currently unemployed and looking for a job?: No Are you interested in more education?: No Please select the resources that you would like help with: None Currently or been in a relationship where the following occur: No concerns repo rted THRIVE Score: 0 AUDIT C Alcohol Use Questionnaire (AUDIT-C) 1. How often do you have a drink containing alcohol?: Never 2. How many drinks containing alcohol do you have on a typical day when you are drinking?: 1 or 2 (0) 3. How often do you have six or more drinks on one occasion?: Never Total Score: 0 Score Reviewed/Action Taken: Yes JEY-7 AMB Questionnaire JEY-7 Date JEY - 7 assessed: 07/23/24 Feeling nervous, anxious, or on edge: 0 = Not at all Not being able to stop or control worryin = Not at all Worrying too much about different things: 0 = Not at all Trouble relaxin = Not at all Being so restless that it is hard to sit still: 0 = Not at all Becoming easily annoyed or irritable: 0 = Not at all Feeling afraid as if something awful might happen: 0 = Not at all Total JEY-7 score (0-4 normal; 5-9 mild; 10-14 moderate; 15-21 severe): 0 Source: Developed by Drs. Andre Amaral, Brenna Hamilton, Florin Glover and colleagues, with an educational sumaya from [employer]. Review of Systems Const Denies chills, Denies fatigue, Denies fever(s) and Denies headache(s) ENT Denies dysphagia, Denies dizziness, Denies otalgia, Denies headache(s), Denies neck pain, Denies odynophagia and Denies sore throat Card Denies chest pain, Denies palpitations and Denies dyspnea Resp Denies chest congestion, Denies cough and Denies dyspnea GI Denies abdominal pain, Denies hematochezia, Denies constipation, Denies dysphagia, Denies diarrhea, Denies nausea, Denies odynophagia and Denies vomiting Denies difficulty urinating, Denies dysuria, Denies nocturia and Denies urinary frequency Musc Denies back pain and Denies neck pain Skin/Breast Denies rash Neuro Denies dizziness and Denies headache(s) Endo Denies fatigue and Denies palpitations Physical exam (Primary Care) Vital Signs: Last Vital Signs Pulse 83 07/23/24 15:33 BP 136/86 07/23/24 15:59 Pulse Ox 92 07/23/24 15:33 Oxygen Delivery Method Room Air 07/23/24 15:33 BMI result Body Mass Index 39.9 Tobacco/Smoking Status: Tobacco use Status Tobacco use date assessed 07/23/24 07/23/24 15:39 Patient Tobacco Use Status Former Tobacco user 07/23/24 15:39 Tobacco use type Cigarette 07/23/24 15:39 e-Cigarette/Vaping Use Never Used 07/23/24 15:39 PHQ-9: PHQ-9 Score PHQ-9: Total score 0 07/23/24 16:02 Depression Screening Interpretation: Negative Thrive Assessment: Date of Thrive Assessment Date Thrive assessed 07/23/24 07/23/24 15:39 Currently or been in a relationship where the following occur: No concerns reported Const General: no acute distress and alert HENMT Ears: TM's normal bilaterally and EAC's normal Throat: Yes posterior oropharynx normal and Yes tonsils normal (no TP congestion) Neck Neck: Yes supple and No lymphadenopathy Thyroid: Thyroid normal Resp Auscultation: clear to auscultation bilaterally, no rales and no wheezes Cardio Rate: regular rate Rhythm: regular rhythm Heart sounds: no murmurs GI Palpation (GI): Soft to palpation and nontender Auscultation: normal bowel sounds General: Yes no CVA tenderness Back/Spine/Pelvis Back: no CVA tenderness Thoracic/Lumbar Spine: No lumbar spinal tenderness Skin Rashes: no rashes Extrem General: Yes no clubbing, cyanosis or edema Results Reviewed Results Reviewed: Laboratory Tests 07/16/24 07/16/24 06:24 06:30 WBC 5.8 Hgb 16.5 Hct 47.2 Plt Count 232 Sodium 141 Potassium 3.6 Creatinine 0.89 Estimated GFR > 60 Fasting Glucose 110 H Hemoglobin A1c % 6.3 H Calcium 8.8 AST 26 ALT 29 Triglycerides 77 Cholesterol 185 LDL Cholesterol, Calc 135 H HDL Cholesterol 35 L 25-OH Vitamin D Total 31.1 TSH 1.99 Ur Specific [place] >= 1.030 H Urine Protein 300 (3+) H Urine Glucose (UA) Negative Urine Blood Negative Urine Nitrite Negative Ur Leukocyte Esterase Negative Coding Level of Care Code Est Pt Level 4 (38405) Diagnoses Benign essential hypertension I10 Pure hypercholesterolemia E78.00 Impaired fasting glucose R73.01 FSGS (focal segmental glomerulosclerosis) N05.1 Vitamin D deficiency E55.9 GERD without esophagitis K21.9 Ulcerative colitis without complications, unspecified location K51.90 Ulcerative colitis location: unspecified ulcerative colitis location Obesity (BMI 30-39.9) E66.9 Additional Codes PHQ-9 - 53247 - PHQ-9 Billing: Yes ([id number]) Assessment & Plan Assessment & Plan (1) Benign essential hypertension: Code(s): I10 - Essential (primary) hypertension Category: Medical Plan: Reinforced low sodium diet - goal is systolic BP of 120 mm or less Continue Losartan 100 mg + 25 mg (125 mg) QD and Chlorthalidone 25 mg QD Follow up with nephrology as scheduled (2) Pure hypercholesterolemia: Code(s): E78.00 - Pure hypercholesterolemia, unspecified Category: Medical Plan: Results of his labs done last week reviewed and discussed with patient Reinforced low cholesterol diet Continue Atorvastatin 80 mg QD Will recheck his labs and fasting lipids in 4 months for follow up (3) Impaired fasting glucose: Code(s): R73.01 - Impaired fasting glucose Category: Medical Plan: His HgbA1c was still at 6.3% on his labs done last week; was also at 6.3% a few months ago Reinforced low calorie/low carb diet, exercise and weight loss Patient wishes to continue with diet modification for now and avoid taking any Rx for his blood sugar as much as possible Will recheck his FBS and HgbA1c again in 4 months for follow-up (4) FSGS (focal segmental glomerulosclerosis): Comment: (+) 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 Alejandra) as scheduled Patient has also reportedly been advised to consider bariatric (gastric sleeve) surgery to help improve his health and comorbidities - he has explored weight management recently and remains hesitant to undergo bariatric surgery at present (5) Vitamin D deficiency: Code(s): E55.9 - Vitamin D deficiency, unspecified Category: Medical Plan: Continue Vitamin D3 2000 units QD (6) GERD without esophagitis: Code(s): K21.9 - Gastro-esophageal reflux disease without esophagitis Category: Medical Plan: Dietary restrictions reinforced He used to take Omeprazole 20 mg QD but states that he has not needed to take his Rx in a while now (7) Ulcerative colitis without complications: Comment: (+) diffuse ulcerative colitis diagnosed on previous colonoscopy in 2002 (Dr. Ayala) Code(s): K51.90 - Ulcerative colitis, unspecified, without complications Category: Medical Qualifiers: Ulcerative colitis location: unspecified ulcerative colitis location Qualified Code(s): K51.90 - Ulcerative colitis, unspecified, without complications Plan: Currently stable with no acute flare ups Colonoscopy done in 2013 came out normal and thinks that he was due for repeat colonoscopy in May 2019 but this was delayed/held up due to the COVID-19 pandemic Reviewing his 2013 biopsy revealed findings of a quiescent colitis with no evidence of dysplasia and Dr. Ayala actually recommended back then that patient can wait up to 10 years for a repeat colonoscopy if he has no recurrent flare ups of his colitis He had his repeat colonoscopy done on May 14, [address] Ayala - was advised to get repeat colonoscopy again in 5 years (2028) (8) Obesity (BMI 30-39.9): Code(s): E66.9 - Obesity, unspecified Category: Medical Plan: Reinforced diet/exercise as tolerated /lose weight He has been advised by Nephrology to consider gastric sleeve / bariatric surgery to help improve his health - patient has obesity-related secondary FSGS and persistent proteinuria and has been counseled that this can improve with significant weight loss He was referred previously to weight management for further evaluation but patient remains very hesitant to undergo bariatric surgery at this time Plan Follow up in 4 months Orders: Orders Comprehensive [place]. Panel Fast 4 Months E78.00 - Pure hypercholesterolemia, unspecified TSH reflex Free T4 4 Months E78.00 - Pure hypercholesterolemia, unspecified UA CC w/rflx Micro + Cult 4 Months R30.0 - Dysuria US arterial duplex LE BI 07/23/24 I73.9 - Peripheral vascular disease, unspecified, R60.0 - Localized edema Complete Blood Count Auto Diff 4 Months D64.9 - Anemia, unspecified Lipid Panel 4 Months E78.00 - Pure hypercholesterolemia, unspecified Medications: Refilled losartan To be taken together with Losartan 25 mg for a total of 125 mg DAILY DOSE 100 mg PO DAILY 90 days 90 tabs 1RF atorvastatin 80 mg PO BEDTIME 90 days 90 tabs 3RF E78.00 - Pure hypercholesterolemia, unspecified chlorthalidone 25 mg PO DAILY 90 days 90 tabs 1RF cholecalciferol (vitamin D3) 50 mcg PO DAILY 90 days 90 tabs 3RF R79.89 - Other specified abnormal findings of blood chemistry
[2024-07-23 15:59] VITALS: BP 136/86
--- OUTSIDE RECORDS SUMMARY | 2024-07-23 19:28 | XMS_ITS ---
Author Organization [facility] Address [address] [place] [address] Care Team Providers Care Porcelain Waxer Name Role Phone Anthony FARRIS, [place] Primary Care Provider Unava ilable Andre Ayala Unavailable [phone] REASON FOR VISIT screening colon PROBLEMS Problem Type ICD Code Onset Dates Problem Status W/U Status Risk SNOMED Code Notes Problem Ulcerative proctitis, without complications (K51.20) Active confirmed Chronic ulcerative proctitis (56059409) Problem Diverticulosis of large intestine without perforation or abscess without bleeding (K57.30) Active confirmed Diverticul ar disease of colon (630352651) Encounters Encounter Location Date Provider Diagnosis [facility] [place] [address] [place] [phone] 05/14/2024 Andre Ayala Colon cancer scree crescencio Z12.11 ; Colon polyps K63.5 ; Ulcerative proctitis, without complications K51.20 and Diverticulosis of large intestine without perforation or abscess without bleeding K57.30 ASSESSMENTS Encounter Date Diagnosis Assessment Notes Treatment Notes Treatment Clinical Notes 05/14/2024 Colon cancer screening (ICD-10 - Z12.11) 05/14/2024 Colon polyps (ICD-10 - K63.5) 05/14/2024 Ulcerative proctitis , without complications (ICD-10 - K51.20) 05/14/2024 Diverticulosis of large intestine without perforation or abscess without bleeding (ICD-10 - K57.30) PLAN OF TREATMENT No Information
--- OUTSIDE RECORDS SUMMARY | 2024-07-23 19:28 | XMS_ITS ---
Author Organization [facility] Address [address] [place] [address] Care Team Providers Care Continuous Mining Operator Name Role Phone Anthony FARRIS, [place] Primary Care Provider Andre Diaz Unavailable [phone] ALLERGIES No Known Allergies REASON FOR VISIT Patient presents today for a COLON SCREENING MEDICATIONS Medication SIG (Take, Route, Frequency, Duration) Notes Start Date End Date Status Chlorthalidone 25 MG TAKE 1 TABLET BY MO UTH EVERY DAY Oral for 90 Active Vitamin D 50 MCG (1999) TAKE 1 TABLET BY MOUTH EVERY DAY Oral for 90 Active Atorvastatin Calcium 80 MG 1 tablet Oral ly Once a day Active Losartan Potassium 25 MG TAKE 1 TABLET B Y MOUTH with 100 mg tab DAILY WITH 100MG (125MG TOTAL) Oral Once a day Active ibuprofen Active PROBLEMS Problem Type ICD Code Onset Dates Problem Status W/U Status Risk SNOMED Code Notes Problem Ulcerative chronic pancolitis without complications (K51.00) Active confirmed Chronic ulcerative pancolitis (838860441) Problem Encounter for screening for malignant neoplasm of colon (Z12.11) Active confirmed Screening for malignant neoplasm of colon (693157739) VITAL SIGNS BMI 39.02 kg/m2 01/10/2024 Blood pressure systolic 00 mm Hg 01/10/20 24 Blood pressure diastolic 00 mm Hg 024 Height 70 in 01/10/2024 Weight 272 lbs 01/10/2024 Encounters Encounter Location Date Provider Diagnosis [facility] [address] [place] [phone] 01/10/2024 Andre Ayala Ulcerative chronic pancolitis without complications K51.00 and Encounter for screening for malignant neoplasm of colon Z12.11 ASSESSMENTS Encounter Date Diagnosis Assessment Notes Treatment Notes Treatment Clinical Notes 01/10/2024 Ulcerative chronic pancolitis without complications (ICD-10 - K51.00) Do not use the Chlorthalidone the day before nor on the day of the colonoscopy 01/10/2024 Encounter for screening for malignant neoplasm of colon (ICD-10 - Z12.11) PLAN OF TREATMENT Treatment Notes Assessment Notes Ulcerative chronic pancoliti s without complications Do not use the Chlorthalidone the day before nor on the day of the colonoscopy Future Test Test Name Order Date COLONOSCOPY 01/10/2024 Next Appt Details Follow Up: prn, Reason: Progress Notes * Examination Category Sub-Category Detail Notes General Examination GENERAL APPEARANCE: pleasant , well nourished, well developed, in no acute distress HEAD: EYES: sclera non-icteric EARS: NOSE: THROAT: NECK/THYROID: no cervical lymphade nopathy, neck supple HEART: S1, S2 normal CHEST: LUNGS: clear to auscultatio n bilaterally ABDOMEN: normal bowel sounds, no guarding or rigidity, no guarding or rigidity, no masses palpable, soft, nontender, nondistended NEUROLOGIC: alert and oriented SKIN: nonjaundiced, no spi phillip angiomata EXTREMITIES: no edema PERIPHERAL PULSES: BACK: BREASTS: MUSCULOSKELETAL: MALE GENITOURINARY: LYMPH NODES: RECTAL EXAM: FEMALE GENITOURINARY: ORAL CAVITY: mucosa moist
--- OUTSIDE RECORDS SUMMARY | 2024-07-23 19:28 | XMS_ITS | Patient Health Record ---
Author Organization [facility] Address [address] [place] [address] Care Team Providers Care Secy Name Role Phone Anthony FARRIS, [place] Primary Care Provider Andre Diaz Unavailable [phone] ALLERGIES No Known Allergies RESULTS Component Value Reference Range Notes Pathology (Not yet reviewed by provider) Interpretation: Performing Lab:[facility], [address] [place] [id number] Notes/Report: REASON FOR REFERRAL No Information MEDICATIONS Medication SIG (Take, Route, Frequency, Duration) [...] Oral Once a day Active ibuprofen Active SOCIAL HISTORY Sex Assigned At : Social History Observation Description Sex Assigned At Unknown PROBLEMS Problem Type ICD Code Onset Dates Problem Status W/U Status Risk SNOMED Code Notes Problem Encounter for screening for malignant neoplasm of colon (Z12.11) Active confirmed Screening for malignant neoplasm of colon (595756188) Problem Diverticulosis of large intestine without perforation or abscess without bleeding (K57.30) Active confirmed Diverticul ar disease of colon (482380317) Problem Ulcerative proctitis, without complications (K51.20) Active confirmed Chronic ulcerative proctitis (51654954) Problem Ulcerative chronic pancolitis without complications (K51.00) Active confirmed Chronic ulcerative pancolitis (434675891) VITAL SIGNS Blood pressure diastolic 00 mm Hg 01/10/2024 Height 70 in 01/10/2024 Blood pressure systolic 00 mm Hg 01/10/2024 Weight 272 lbs 01/10/2024 BMI 39.02 kg/m2 01/10/2024 Encounters Encounter Location Date Provider Diagnosis [facility] [place] Outpatient [address] [place], [place] [id number] 05/14/2024 Andre Ayala Colon cancer screeni ng Z12.11 ; Colon polyps K63.5 ; Ulcerative proctitis, without complications K51.20 and Diverticulosis of large intestine without perforation or abscess without bleeding K57.30 [facility] [address] [place] [address] 01/10/2024 Andre Ayala Ulcerative chronic pancolitis without complications K51.00 and Encounter for screening for malignant neoplasm of colon Z12.11 [facility] [address] [place] [phone] 09/01/2023 Andre Ayala ASSESSMENTS Encounter Date Diagnosis Assessment Notes Treatment Notes Treatment Clinical Notes 05/14/2024 Colon cancer screening (ICD-10 - Z12.11) 05/14/2024 Colon polyps (ICD-10 - K63.5) 01/10/2024 Encounter for screening for malignant neoplasm of colon (ICD-10 - Z12.11) 01/10/2024 Ulcerative chronic pancolitis without complications (ICD-10 - K51.00) Do not use the Chlorthalidone the day before nor on the day of the colonoscopy 05/14/2024 Ulcerative proctitis, without complications (ICD-10 - K51.20) 05/14/2024 Diverticulosis of large intestine without perforation or abscess without bleeding (ICD-10 - K57.30) PLAN OF TREATMENT Pending Test Test Name Order Date Pathology 05/14/2024 Future Test Test Name Order Date COLONOSCOPY 03/20/2014 COLONOSCOPY 01/10/2024 Insurance Providers Payer Name Payer Address Payer Phone Subscriber Number Group Number Insured Name Patient Relationship to Insured Coverage Start Date Coverage End Date [facility] Insurance ([employer]) [address] [place] [id number] BRIDGETT REID Self - patient is the insured MEDICAL (GENERAL) HISTORY Medical History History ICD Code Ulcerative colitis--pancolit is in 05/2003--treated with Asacol and Canasa suppository for a while--he also had a colonoscopy in 1995 with the finding of some colitis as well--a small bowel series in 1995 was unremarkable. Hypertension Denies [place],DM,CVA,Lung disease,renal dise ase Hyperlipidemia Hyperplidemia Negative screening colonosco py in May of 2014, including biopsies from the colon that were negative for dysplasia. There was no evidence of any active colitis. Surgical History Surgery Date(Month/Year) Knee surgery x 4
--- OUTSIDE RECORDS SUMMARY | 2024-07-23 19:28 | XMS_ITS ---
Author Organization [facility] Address [address] [place] [address] Care Team Providers Care Automation Tech Name Role Phone Anthony FARRIS, [place] Primary Care Provider Unava Andre Kent [facility] [phone] Encounters Encounter Location Date Provider Diagnosis [facility] [address] [place] [address] 09/01/2023 Andre Ayala PLAN OF TREATMENT No Information
--- OUTSIDE RECORDS SUMMARY | 2024-07-23 19:28 | XMS_ITS | Clinical Summary ---
Author Organization [facility] Address [address] [place] [address] Phone Care Team Providers Care Derrick Worker Name Role Phone Chi Cruz MD Primary Care Provider +1- [phone] Allergies No known active allergies Medications atorvastatin (LIPITOR) 80 MG tablet Take 1 tablet by mouth 1 (one) time each day Active chlorthalidone 25 MG tablet Take 1 tablet (25 mg total) by mouth 1 (one) time each day 90 tablet 3 07/28/2022 Active cholecalciferol (VITAMIN D-3) 50 MCG (2000 UT) tablet Take 2,000 Units by mouth 1 (one) time each day 07/28/2022 Active losartan (COZAAR) 50 MG tablet Take 2 tablets (100 mg total) by mouth 1 (one) time each day 180 tablet 3 08/17/2022 Active Active Problems Problem Noted Date Diagnosed Date 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 Hypertension 01/02/2021 Hypertensive renal disease 10/01/2020 Persistent proteinuria 10/01/2020 Family History Medical History Relation Comments Heart disease Father Relation Status Comments Father Alive Mother Alive Social History Tobacco Use Types Packs/Day Years Used Date Smoking Tobacco: Never Smokeless Tobacco: Never Tobacco Cessation:Counseling Given: Not Answered Alcohol Use Standard Drinks/Week Comments Yes 0 (1 standard drink = 0.6 oz pure alcohol) Alcoholic Drinks/day: Occasional social drink Sex and Gender Information Value Date Recorded Sex Assigned at Not on file Legal Sex Male 5:02 PM EST Gender Identity Not on file Sexual Orientation Not on file Last Filed Vital Signs Vital Sign Reading Time Taken Comments Blood Pressure 126/82 07/28/2022 4:11 PM EST Pulse 85 07/28/2022 4:11 PM EST Temperature - - Respiratory Rate - - Oxygen Saturation 96% 01/02/2021 4:20 PM EDT Inhaled Oxygen Concentration - - Weight 121 kg (266 lb 9.6 oz) 07/28/2022 4:11 PM EST Height 175.3 cm (5' 9 ) 07/02/2020 12:00 PM EST Body Mass Index 39.37 07/02/2020 12:00 PM EST Plan of Treatment Health Maintenance Due Date Last Done Comments Pneumococcal Vaccine: Pediat rics (0 to 5 Years) and At-Risk Patients (6 to 64 Years) (1 of 2 - PCV) 01/04/1970 Colorectal Cancer Screening: Annual FOBT 01/04/2013 Colorectal Cancer Screening: Colonoscopy 01/04/2013 Colorectal Cancer Screening: Sigmoidoscopy 01/04/2013 Influenza Vaccine (#1) 2024 Hepatitis B Vaccine Aged Out No longe r eligible based on patient's age to complete this topic Insurance UNICARE UNICARE Care Teams Derrick Worker Relationship Specialty Start Date End Date Chi Cruz MD [address] [place] [phone] PCP - General 07/07/20
== END 2024-07-23 16:10 | disposition home or self-care (01) ==
PROVIDERS: PCP Internal Medicine; Visit Provider Internal Medicine
DX: I10 Essential (primary) hypertension (principal); K51.90 Ulcerative colitis, unspecified, without complications; E66.9 Obesity, unspecified; Z68.39 Body mass index [BMI] 39.0-39.9, adult; E78.00 Pure hypercholesterolemia, unspecified; R73.01 Impaired fasting glucose; N05.1 Unspecified nephritic syndrome with focal and segmental glomerular lesions; E55.9 Vitamin D deficiency, unspecified; K21.9 Gastro-esophageal reflux disease without esophagitis

== ENCOUNTER → 2024-07-23 15:24 | Outpatient (BNVA) | payer OTHER, SELFPAY | PROVIDERS: PCP Internal Medicine; Visit Provider Internal Medicine | DX: I10 Essential (primary) hypertension (principal); E78.00 Pure hypercholesterolemia, unspecified; R73.01 Impaired fasting glucose; N05.1 Unspecified nephritic syndrome with focal and segmental glomerular lesions; E55.9 Vitamin D deficiency, unspecified; K21.9 Gastro-esophageal reflux disease without esophagitis; K51.90 Ulcerative colitis, unspecified, without complications; E66.9 Obesity, unspecified; Z68.39 Body mass index [BMI] 39.0-39.9, adult; Z79.899 Other long term (current) drug therapy | CPT/HCPCS: 96127 ==

== ENCOUNTER 2024-08-01 14:20 | Outpatient (AMB) | payer OTHER, SELFPAY ==
--- NOTE | 2024-08-01 14:33 | HO.NEPHOV_ITS ---
Vital Signs 08/01/24 14:34 Height 5 ft 10 in Weight 277 lb BMI 39.7 BP 126/92 H Blood Pressure Location Lt brachial Position Sitting Pulse 84 Pulse Source Pulse Oximeter Pulse Oximetry (%) 92 Oxygen Delivery Method Room Air Intake Visit Reasons: Hypertension-Conf Expedition Supervisor Required: No Accompanied by: Self / Same As Patient Allergies No Known Allergies Allergy (Verified 08/01/24 14:34) HPI Comments Details: Romain was seen in the office in follow-up of his proteinuria. He has history of hypertension. He denies being a diabetic. 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 He has not lost any significant weight. His blood pressure has been at goal. He does not have any urinary symptoms or worsening pedal edema. He denies any chest pain, shortness of breath, proximal nocturnal dyspnea, orthopnea or orthostatic symptoms. He claimed to be compliant with his medications. There were no new active complaints at the time this office visit. [facility] Medical History Bilateral hand pain FSGS (focal segmental glomerulosclerosis) Obesity (BMI 30-39.9) Ulcerative colitis without complications Persistent proteinuria Vitamin D deficiency GERD without esophagitis Pure hypercholesterolemia Benign essential hypertension Surgical History Hx of colonoscopy H/O right knee surgery H/O left knee surgery Family History Father Diabetes Hypertension CVD (cardiovascular disease) Mother Medical history unknown Social History Housing: House Are you a primary wound care nurse to a significant other at home: No Do you presently have visiting nurse or other home services: No Patient Tobacco Use Status: Former Tobacco user Tobacco use type: Cigarette Years Smoked: 4 e-Cigarette/Vaping Use: Never Used service: No Current occupational status: employed Cognitive needs: No Hearing needs: No Vision needs: No Review of Systems Const All systems reviewed & are unremarkable except as noted in HPI and below Physical Exam Const General: comfortable and no acute distress Orientation/consciousness: patient oriented x3 HEENT Head: Yes normocephalic Mouth: Normal oral and palatal mucosa present Eyes EOM: EOMs intact bilaterally Neck Neck: Yes supple Resp Auscultation: clear to auscultation bilaterally Cardio Jugular venous distension: no JVD Rate: regular rate GI Palpation (GI): Soft to palpation Auscultation: normal bowel sounds General: Yes no CVA tenderness Back/Spine/Pelvis Back: no CVA tenderness Skin General skin exam: no rashes or lesions noted Neuro General: patient oriented x3 and moves all extremities Extrem General: Yes no pedal edema Results Reviewed Nephrology Results: Hgb 16.5 g/dl (14.0-18.0) 07/16/24 WBC 5.8 X10*3/uL (4.8-10.8) 07/16/24 Plt Count 232 X10*3/uL (160-400) 07/16/24 Sodium 141 mmol/L (135-145) 07/16/24 Potassium 3.6 mmol/L (3.3-5.1) 07/16/24 Chloride 103 mmol/L (96-108) 07/16/24 Carbon Dioxide 29 mmol/L (22-29) 07/16/24 BUN 20 mg/dL (9-16) H 07/16/24 Creatinine 0.89 mg/dL (0.5-1.4) 07/16/24 Calcium 8.8 mg/dL (8.4-10.2) 07/16/24 Urine Protein 300 (3+) mg/dL (Neg-Trace) H 07/16/24 Urine Creatinine 118.40 mg/dL 04/23/24 Protein/Creatinin Ratio 2.33 (<0.2) H 04/23/24 Assessment & Plan Assessment & Plan (1) FSGS (focal segmental glomerulosclerosis): Comment: (+) obesity-related secondary FSGS on renal biopsy Code(s): 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 Category: Medical (2) Benign essential hypertension: Code(s): I10 - Essential (primary) hypertension Category: Medical (3) Persistent proteinuria: Comment: due to obesity-related secondary FSGS - diagnosed by renal Bx Code(s): R80.1 - Persistent proteinuria, unspecified Category: Medical Plan Romain has hypertension for well over 20 years. He has high BMI and proteinuria from obesity related secondary FSGS. He is not known to have any microscopic hematuria. He is on losartan. He is an ideal candidate for gastric sleeve surgery. He is on ARB. I started him on Diltiazem 120 mg daily for improvement in proteinuria as he has maxed out on ARB. I am considering adding Jardiance in the future for his renal protective effects. He needs to continue to modify his lifestyle and lose significant weight. He should try Mounjaro/Ozempic or gets referred to weight management program. He avoids nonsteroidal anti- inflammatories if at all possible and maintain good hydration. His 24 hour urine for protein was reviewed. Answered all questions. Orders: Orders Creatinine 6 Months 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 Blood Urea Nitrogen 6 Months 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 Electrolytes 6 Months 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 Protein Creatinine Ratio, Ur 6 Months 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 Medications: New diltiazem HCl CD 120 mg PO DAILY 30 caps 6RF Coding Level of Care Code Est Pt Level 4 (02975) Diagnoses FSGS (focal segmental glomerulosclerosis) N05.1 Benign essential hypertension I10 Persistent proteinuria R80.1
[2024-08-01 14:34] VITALS: BP 126/92; PULSE 84; O2SAT 92; BMI 39.7
--- OUTSIDE RECORDS SUMMARY | 2024-08-01 15:32 | XMS_ITS | Clinical Summary ---
Author Organization [facility] Address [address] [place] [address] Phone Care Team Providers Care Lumber Sales Supervisor Name Role Phone Chi Cruz MD Primary Care Provider +1- [phone] Allergies No known active allergies Medications atorvastatin [...] this topic Insurance UNICARE UNICARE Care Teams Lumber Sales Supervisor Relationship Specialty Start Date End Date Chi Cruz MD [address] [place] [phone] PCP - General 07/07/20
== END 2024-08-01 14:55 | disposition home or self-care (01) ==
PROVIDERS: PCP Internal Medicine; Visit Provider Internal Medicine Nephrology
DX: N05.1 Unspecified nephritic syndrome with focal and segmental glomerular lesions (principal); I10 Essential (primary) hypertension; R80.1 Persistent proteinuria, unspecified
CPT/HCPCS: 99214

== ENCOUNTER → 2024-08-01 14:20 | Outpatient (BNVA) | payer OTHER, SELFPAY | PROVIDERS: PCP Internal Medicine; Visit Provider Internal Medicine Nephrology ==

== ENCOUNTER 2024-08-07 14:48 | Outpatient (REF) | payer OTHER, SELFPAY ==
--- NOTE | ~2024-08-07 | US_ITS ---
EXAMINATION: COLOR-FLOW DUPLEX IMAGING OF THE BILATERAL LOWER EXTREMITY ARTERIAL SYSTEM. VELOCITY MEASUREMENTS THROUGHOUT THE FEMORAL ARTERIES. CLINICAL INFORMATION: 59-year-old male, peripheral vascular disease unspecified. FINDINGS: Atheromatous Plaque: Minimal. RIGHT FEMORAL RUNOFF VELOCITIES: The right common femoral artery measures 90 cm/s and triphasic. The right profunda femoral artery is 45 cm/s and is biphasic. The right proximal superficial femoral artery measures 80 cm/s and triphasic. The right mid superficial femoral artery is 83 cm/s and triphasic. The right distal right superficial femoral artery measures 83 cm/s and is triphasic. The right popliteal velocity measures 65 cm/s and is triphasic. The right posterior tibial artery velocity measures 106 cm/s and is triphasic. LEFT FEMORAL RUNOFF VELOCITIES: The left common femoral artery measures 127 cm/s and triphasic. The left profunda femoral artery is 75 cm/s and is triphasic. The left proximal superficial femoral artery measures 90 cm/s and triphasic. The left mid superficial femoral artery is 88 cm/s and triphasic. The left distal right superficial femoral artery measures 13 cm/s and is triphasic. The left popliteal velocity measures 81 cm/s and is triphasic. The left posterior tibial artery velocity measures 83 cm/s and is triphasic. US/US arterial duplex LE BI IMPRESSION: 1. Normal peripheral arterial testing with velocity measurements, indicating no significant vascular disease. Electronically signed by: Kannan Hong MD 08/07/2024 04:00 PM [facility]
--- OUTSIDE RECORDS SUMMARY | 2024-08-07 15:40 | XMS_ITS | Patient Health Record ---
Author Organization [facility] Address [address] [place] [address] Care Team Providers Care Pear Picker Name Role Phone Anthony FARRIS, [place] Primary Care Provider Andre Diaz Unavailable [phone] ALLERGIES No Known Allergies RESULTS Component Value Reference Range Notes Pathology (Not yet reviewed by provider) Interpretation: Performing Lab:[facility], [address] [place] [phone] Notes/Report: REASON FOR REFERRAL No Information MEDICATIONS [...] confirmed Screening for malignant neoplasm of colon (791476768) Problem Diverticulosis of large intestine without perforation or abscess without bleeding (K57.30) Active confirmed Diverticul ar disease of colon (146347114) Problem Ulcerative proctitis, without complications (K51.20) Active confirmed Chronic ulcerative proctitis (43263264) Problem Ulcerative chronic pancolitis without complications (K51.00) Active confirmed Chronic ulcerative pancolitis (426284503) VITAL SIGNS Blood pressure diastolic 00 mm Hg 01/10/2024 Height 70 in 01/10/2024 Blood pressure systolic 00 mm Hg 01/10/2024 Weight 272 lbs 01/10/2024 BMI 39.02 kg/m2 01/10/2024 Encounters Encounter Location Date Provider Diagnosis [facility] [place] [address] [place], [place] [phone] 05/14/2024 Andre Ayala Colon cancer screeni ng Z12.11 ; Colon polyps K63.5 ; Ulcerative proctitis, without complications K51.20 and Diverticulosis of large intestine without perforation or abscess without bleeding K57.30 [facility] [address] [place] [address] 01/10/2024 Andre Ayala Ulcerative chronic pancolitis without complications K51.00 and Encounter for screening for malignant neoplasm of colon Z12.11 [facility] [address] [place] [phone] 09/01/2023 Andre Ayala ASSESSMENTS Encounter Date Diagnosis [...] Insured Coverage Start Date Coverage End Date [facility] [address] [place] [id number] BRIDGETT REID Self - patient is the insured MEDICAL (GENERAL) HISTORY Medical History History ICD Code Ulcerative colitis--pancolit is in 05/2003--treated with Asacol and Canasa suppository for a while--he also had a colonoscopy in 1995 with the finding of some colitis as well--a small bowel series in 1995 was unremarkable. Hypertension Denies [place],DM,CVA,Lung disease,renal dise ase Hyperlipidemia Hyperplidemia Negative screening colonosco py in May of 2014, including biopsies from the colon that were negative for dysplasia. There was no evidence of any active colitis. Surgical History Surgery Date(Month/Year) Knee surgery x 4
--- OUTSIDE RECORDS SUMMARY | 2024-08-07 15:40 | XMS_ITS ---
Author Organization [facility] Address [address] [place] [address] Care Team Providers Care Culture Manager Name Role Phone Anthony FARRIS, [place] Primary Care Provider Andre Diaz Unavailable [phone] ALLERGIES No Known Allergies REASON FOR VISIT [...] complications (K51.00) Active confirmed Chronic ulcerative pancolitis (839557080) Problem Encounter for screening for malignant neoplasm of colon (Z12.11) Active confirmed Screening for malignant neoplasm of colon (959245582) VITAL SIGNS BMI 39.02 kg/m2 01/10/2024 Blood pressure systolic 00 mm Hg 01/10/20 24 Blood pressure diastolic 00 mm Hg 024 Height 70 in 01/10/2024 Weight 272 lbs 01/10/2024 Encounters Encounter Location Date Provider Diagnosis [facility] [address] [place] [phone] 01/10/2024 Andre Ayala Ulcerative chronic pancolitis without [...]
--- OUTSIDE RECORDS SUMMARY | 2024-08-07 15:40 | XMS_ITS ---
Author Organization [facility] Address [address] [place] [address] Care Team Providers Care Roll Slicing Machine Tender Name Role Phone Anthony FARRIS, [place] Primary Care Provider Unava Andre Kent [facility] [phone] Encounters Encounter Location Date Provider Diagnosis [facility] [address] [place] [address] 09/01/2023 Andre Ayala PLAN OF TREATMENT No Information
--- OUTSIDE RECORDS SUMMARY | 2024-08-07 15:40 | XMS_ITS | Clinical Summary ---
Author Organization [facility] Address [address] [place] [address] Phone Care Team Providers Care Valet Name Role Phone Chi Cruz MD Primary Care Provider +1- [phone] Allergies No known active allergies Medications atorvastatin [...] to complete this topic [place] [id number] Care Teams Valet Relationship Specialty Start Date End Date Chi Cruz MD [address] [place] [phone] PCP - General 07/07/20
--- OUTSIDE RECORDS SUMMARY | 2024-08-07 15:40 | XMS_ITS ---
Author Organization [facility] Address [address] [place] [address] Care Team Providers Care Clinic Supervisor Name Role Phone Anthony FARRIS, [place] Primary Care Provider Unava ilable Andre Ayala Unavailable [phone] REASON FOR VISIT screening colon PROBLEMS Problem Type ICD Code Onset Dates Problem Status W/U Status Risk SNOMED Code Notes Problem Ulcerative proctitis, without complications (K51.20) Active confirmed Chronic ulcerative proctitis (02541067) Problem Diverticulosis of large intestine without perforation or abscess without bleeding (K57.30) Active confirmed Diverticul ar disease of colon (726562455) Encounters Encounter Location Date Provider Diagnosis [facility] Outpatient [address] [place] [phone] 05/14/2024 Andre Ayala Colon cancer scree crescencio [...]
== END 2024-08-07 14:49 | disposition home or self-care (01) ==
LOC: HO.US 14:48
PROVIDERS: PCP Internal Medicine; Visit Provider Internal Medicine
DX: I73.9 Peripheral vascular disease, unspecified (principal); R60.0 Localized edema
CPT/HCPCS: 93925

== ENCOUNTER → 2024-08-07 14:49 | Outpatient (BNV) | payer OTHER, SELFPAY | PROVIDERS: PCP Internal Medicine; Visit Provider Radiology Diagnostic Radiology | DX: R60.0 Localized edema (principal) | CPT/HCPCS: 93925 ==

== ENCOUNTER 2024-10-10 06:05 | Outpatient (REF) | payer OTHER, SELFPAY ==
--- OUTSIDE RECORDS SUMMARY | 2024-10-10 06:08 | XMS_ITS | Clinical Summary ---
Author Organization [facility] Address [address] [place] [address] Phone Care Team Providers Care Water Plumber Name Role Phone Chi Cruz MD Primary Care Provider [phone] Allergies No known active allergies Medications atorvastatin [...] Due Date Last Done Comments Pneumococcal Vaccine: 50+ Ye ars (1 of 2 - PCV) 01/04/1983 Colorectal Cancer Screening: Annual FOBT 01/04/2013 Colorectal Cancer Screening: Colonoscopy 01/04/2013 Colorectal Cancer Screening: Sigmoidoscopy 01/04/2013 Influenza Vaccine (Season Ended) 2025 Hepatitis B Vaccine Aged Out No longe r eligible based on patient's age to complete this topic Insurance Unicare Unicare Care Teams Water Plumber Relationship Specialty Start Date End Date Chi Cruz MD [address] [place] [id number] PCP - General 07/07/20
--- OUTSIDE RECORDS SUMMARY | 2024-10-10 06:08 | XMS_ITS ---
Author Organization [facility] Address [address] [place] [address] Care Team Providers Care Systems Support Engineer Name Role Phone Anthony FARRIS, [place] Primary Care Provider Andre iDaz Unavailable [phone] Allergies No Known Allergies REASON FOR VISIT Patient presents today for a COLON SCREENING Medications Medication SIG (Take, Route, Frequency, Duration) Notes [...] Oral Once a day Active ibuprofen Active Problems Problem Type SNOMED Code ICD Code Onset Dates Problem Status W/U Status Risk Notes Problem Chronic ulcerative pancolitis (370521243) Ulcerative chronic pancolitis without complications (K51.00) Active confirmed Problem Screening for malignant neoplasm of colon (184816280) Encounter for screening for malignant neoplasm of colon (Z12.11) Active confirmed Vital Signs Blood pressure systolic 00 mm Hg 01/10/20 24 Blood pressure diastolic 00 mm Hg 024 Height 70 in 01/10/2024 Weight 272 lbs 01/10/2024 BMI 39.02 kg/m2 01/10/2024 Encounters Encounter Location Date Provider Diagnosis [facility] [address] [place] [address] 01/10/2024 Andre Ayala Ulcerative chronic pancolitis without complications K51.00 and Encounter for screening for malignant neoplasm of colon Z12.11 Assessments Encounter Date Diagnosis (ICD Code) Assessment Notes Treatment Notes Treatment Clinical Notes Section Notes 01/10/2024 Ulcerative chronic pancolitis without complications (ICD-10 - K51.00) Do not use the Chlorthalidone the day before nor on the day of the colonoscopy Overall, Bridgett appears well and is not having any new or worrisome GI complaints. His long-standing history of ulcerative colitis remains in clinical remission without any specific medication. I have recommended a followup colonoscopy for further screening purposes given his very long-standing history of ulcerative colitis and his last colonoscopy being nearly 10 years ago. We did review the rationale for this in regard to colorectal cancer prevention and/or early detection. Full consent was obtained for this, including risks of bleeding and perforation. The procedure will be done with monitored anesthesia care. At this point he will remain off medication for his ulcerative colitis given that this has been in clinical remission for many years without any specific treatments. He was given the below instructions regarding adjustment of his medications for the procedure. Bridgett was comfortable with this plan. Thank you again for allowing me to participate in Bridgett's care. I shall continue to keep you advised of his progress. 01/10/2024 Encounter for screening for malignant neoplasm of colon (ICD-10 - Z12.11) Overall, Bridgett appears well and is not having any new or worrisome GI complaints. His long-standing history of ulcerative colitis remains in clinical remission without any specific medication. I have recommended a followup colonoscopy for further screening purposes given his very long-standing history of ulcerative colitis and his last colonoscopy being nearly 10 years ago. We did review the rationale for this in regard to colorectal cancer prevention and/or early detection. Full consent was obtained for this, including risks of bleeding and perforation. The procedure will be done with monitored anesthesia care. At this point he will remain off medication for his ulcerative colitis given that this has been in clinical remission for many years without any specific treatments. He was given the below instructions regarding adjustment of his medications for the procedure. Bridgett was comfortable with this plan. Thank you again for allowing me to participate in Bridgett's care. I shall continue to keep you advised of his progress. Plan Of Treatment Treatment Notes Assessment Notes Ulcerative chronic pancoliti s without complications Do not use the Chlorthalidone the day before nor on the day of the colonoscopy Future Test Test Name Order Date COLONOSCOPY 01/10/2024 Next Appt Details Follow Up: prn, Reason: Progress Notes * BRIDGETT REIDDOB:1965 ( 59 yo M)Acc No.[id number]:01/10/2024 Progress Notes Patient:BRIDGETT RONQUILLO Provider:?Andre Ayala MD :1965???Age:59 Y???Sex:Male Micheal e:01/10/2024 Address:[address] [place], [place] [address] Pcp:Chi Cruz MD Subjective: * Chief Complaints: * ???Patient presents today fo r a COLON SCREENING * HPI: ???incontinence:? I saw Bridgett in consultation today in regard to further evaluation of his underlying history of ulcerative colitis and need for colorectal cancer screening. ?I last saw Bridgett in May of 2014, at which time he underwent a followup colonoscopy for screening purposes. There was no evidence of any active colitis nor polyps. Biopsies throughout the colon were all negative for dysplasia. He remains off all medications for his colitis and has remained stable. He enjoys a good appetite, without any significant heartburn or dysphagia. His bowel movements have been regular and without any significant diarrhea, hematochezia, nor melena. He denies abdominal pain, jaundice, nor unintentional weight loss. He denies any known family history of colon cancer, although his daughter does have Crohn's disease. ?Laboratories from October revealed a normal liver profile, normal CBC, and normal chemistries and renal function. * ROS:?General/Constitutional:?Change in appetite?denies.?Chills?denies.?Fatigue?denies.?Ophthalmologic:?Comments?all negative.?ENT:?Comments?all negative.?Respiratory:?hemoptysis?denies.?Cough?denies.?Cardiovascular:?Chest pain?denies.?Orthopnea?denies.?Gastrointestinal:?Comments?See HPI for details.?Genitourinary:?Hematuria?denies.?Dysuria?denies.?Musculoskeletal:?Painful joints?denies.?Weakness?denies.?Skin:?Itching?denies.?Rash?denies.?Neurologic:?Headache?denies.?Seizures?denies.?Psychiatric:?Comments?all negative.? * Medical History:? * Surgical History:?Knee surge ry x 4 * Hospitalization/Major Diagno stic Procedure:?No Hospitalization History. * Family History:?Father: dece ased, diagnosed with HTN (hypertension), Diabetes, Heart disease.?Mother: .? No colorectal cancer--his daughter has Crohn's disease. * Social History:?Tobacco Use:?Tobacco Use/Smoking?Are you a: nonsmoker.?Drugs/Alcohol:?Alcohol Screen?Points: 3, Interpretation: Negative.?Miscellaneous:?Marital status: . 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 ???Nonsmoker; no sig alcohol. * Medications:?Takingibuprofen Atorvastatin Calcium 80 MG Tablet 1 tablet Orally Once a dayLosartan Potassium 25 MG Tablet TAKE 1 TABLET BY MOUTH with 100 mg tab DAILY WITH 100MG (125MG TOTAL) Oral Once a dayChlorthalidone 25 MG Tablet TAKE 1 TABLET BY MOUTH EVERY DAY Oral Vitamin D 50 MCG (1999 UT) Tablet TAKE 1 TABLET BY MOUTH EVERY DAY Oral Taking ibuprofen Taking Atorvastatin Calcium 80 MG Tablet 1 tablet Orally Once a dayTaking Losartan Potassium 25 MG Tablet TAKE 1 TABLET BY MOUTH with 100 mg tab DAILY WITH 100MG (125MG TOTAL) Oral Once a dayTaking Chlorthalidone 25 MG Tablet TAKE 1 TABLET BY MOUTH EVERY DAY Oral Taking Vitamin D 50 MCG (1999 UT) Tablet TAKE 1 TABLET BY MOUTH EVERY DAY Oral DiscontinuedOmeprazole 20 MG Capsule Delayed Release 1 capsule Orally Once a dayLisinopril 10 MG Tablet 1 tablet Orally Once a dayMoviPrep 100 GM Solution as directed Orally as directedMedication List reviewed and reconciled with the patientDiscontinued Omeprazole 20 MG Capsule Delayed Release 1 capsule Orally Once a dayDiscontinued Lisinopril 10 MG Tablet 1 tablet Orally Once a dayDiscontinued MoviPrep 100 GM Solution as directed Orally as directedMedication List reviewed and reconciled with the patient * Allergies:?N.K.D.A.yes[Aller gies Verified] Objective: * Vitals:?Wt: 272 lbs, Ht: 70 in, BMI:39.02 Index, BP: 00/00 mm Hg. * Examination: ???General Examination: ?GENERAL APPEARANCE:?pleasant, well nourished, well developed, in no acute distress.?EYES:?sclera non-icteric.?ORAL CAVITY:?mucosa moist.?NECK/THYROID:?no cervical lymphadenopathy, neck supple.?SKIN:?nonjaundiced, no spider angiomata.?HEART:?S1, S2 normal.?LUNGS:?clear to auscultation bilaterally.?ABDOMEN:?normal bowel sounds, no guarding or rigidity, no guarding or rigidity, no masses palpable, soft, nontender, nondistended.?EXTREMITIES:?no edema.?NEUROLOGIC:?alert and oriented.? Assessment: * Assessment: 1.?Ulcerative chronic pancol itis without complications - K51.00 (Primary)?2.?Encounter for screening for malignant neoplasm of colon - Z12.11? Overall, Bridgett appears well and is not having any new or worrisome GI complaints. His long-standing history of ulcerative colitis remains in clinical remission without any specific medication. I have recommended a followup colonoscopy for further screening purposes given his very long-standing history of ulcerative colitis and his last colonoscopy being nearly 10 years ago. We did review the rationale for this in regard to colorectal cancer prevention and/or early detection. Full consent was obtained for this, including risks of bleeding and perforation. The procedure will be done with monitored anesthesia care. At this point he will remain off medication for his ulcerative colitis given that this has been in clinical remission for many years without any specific treatments. He was given the below instructions regarding adjustment of his medications for the procedure. Bridgett was comfortable with this plan. Thank you again for allowing me to participate in Bridgett's care. I shall continue to keep you advised of his progress. Plan: * Treatment: Notes: Do not use the Chlorthalidone the day before nor on the day of the colonoscopy??2.?Encounter for screening for malignant neoplasm of colon?Procedure: COLONOSCOPY (Ordered for 01/10/2024)* with MAC scheduled colon at [facility] [place] on 05-14-2024 at 10:40 a.m * Procedure Codes:?3017F COLOR ECTAL CA SCREEN DOC [id number] TOBACCO NON-[id number] BP SCR NOT PRFRM REC REASON NOS * Preventive Medicine:? ??Counseling:?Care goal follow-up plan:?Above Normal BMI Follow-up?Giving encouragement to exercise,?BMI management provided?Yes.? * Follow Up:?prn * * Sign off status: Completed true * Provider:?Andre Ayala MD Date:? 024 Generated for Wilber arcos/Brittney/eTransmitting on:?10/10/2024 06:08 AM EDT History and Physical Notes * HPI (History of Present Illness) Category Sub-Category Detail Notes Category Not es incontinence I saw Bridgett in consultation today in regard to further evaluation of his underlying history of ulcerative colitis and need for colorectal cancer screening. I last saw Bridgett in May of 2014, at which time he underwent a followup colonoscopy for screening purposes. There was no evidence of any active colitis nor polyps. Biopsies throughout the colon were all negative for dysplasia. He remains off all medications for his colitis and has remained stable. He enjoys a good appetite, without any significant heartburn or dysphagia. His bowel movements have been regular and without any significant diarrhea, hematochezia, nor melena. He denies abdominal pain, jaundice, nor unintentional weight loss. He denies any known family history of colon cancer, although his daughter does have Crohn's disease. Laboratories from October revealed a normal liver profile, normal CBC, and normal chemistries and renal function. Examination Category Sub-Category Detail Notes Category Not es General Examination GENERAL APPEARANCE: pleasant , well [...]
--- OUTSIDE RECORDS SUMMARY | 2024-10-10 06:08 | XMS_ITS ---
Author Organization [facility] Address [address] [place] [address] Care Team Providers Care Traffic Operations Engineer Name Role Phone Anthony FARRIS, [place] Primary Care Provider Unava ilable Andre Ayala [facility] [phone] Encounters Encounter Location Date Provider Diagnosis [facility] [address] [place] [phone] 09/01/2023 Andre Ayala Plan Of Treatment No Information Progress Notes * BRIDGETT REIDDOB:1965 ( 58 yo M)Acc No.[id number]:09/01/2023 Patient:?REID BRIDGETT :1965???Age:58 Y???Sex:Male Address:[address] [place] [address] [place] [address] * true * Date:? Generated for Wilber arcos/Brittney/eTransmitting on:?10/10/2024 06:08 AM EDT
--- OUTSIDE RECORDS SUMMARY | 2024-10-10 06:08 | XMS_ITS ---
Author Organization [facility] Address [address] [place] [address] Care Team Providers Care Director Of Digital Marketing Name Role Phone Anthony FARRIS, [place] Primary Care Provider Unava ilable Jmaie Andre Unavailable [phone] REASON FOR VISIT screening colon Problems Problem Type SNOMED Code ICD Code Onset Dates Problem Status W/U Status Risk Notes Problem Chronic ulcerative proctitis (21448769) Ulcerative proctitis, without complications (K51.20) Active confirmed Problem Diverticular disease of colon (894177194) Diverticulosis of large intestine without perforation or abscess without bleeding (K57.30) Active confirmed Encounters Encounter Location Date Provider Diagnosis [facility] Outpatient [address] [place] [phone] 05/14/2024 Andre Ayala Colon cancer scree crescencio [...] Information Progress Notes * BRIDGETT REIDDOB:1965 ( 59 yo M)Acc No.[id number]:05/14/2024 COLON WITH MAC Patient:BRIDGETT RONQUILLO Provider:?Andre Ayala MD :1965???Age:59 Y???Sex:Male Micheal e:05/14/2024 Address:[address] [place] [address], [facility] Pcp:Chi Cruz MD Subjective: * Chief Complaints: * ???1. Screening colon. * Medical History:? Objective: * Vitals:? Assessment: * Assessment: 1.?Colon cancer screening - Z12.11 (Primary)???2.?Colon polyps - K63.5???3.?Ulcerative proctitis, without complications - K51.20???4.?Diverticulosis of large intestine without perforation or abscess without bleeding - K57.30??? Plan: * Treatment: * Procedure Codes:?23631 LESIO N REMOVAL COLONOSCOPY, Modifiers: 33 , 37743 COLONOSCOPY AND BIOPSY, Modifiers: 59 , 33 * * The named appointment provid er may or may not be the originator of this progress note, and it is not deemed complete until electronically signed by the appointment provider. Sign off status: Pending * Provider:?Andre Ayala MD Date:? 024 Generated for Wilber arcos/Brittney/Ruismitting on:?10/10/2024 06:08 AM EDT
--- OUTSIDE RECORDS SUMMARY | 2024-10-10 06:08 | XMS_ITS | Patient Health Record ---
Author Organization [facility] Address [address] [place] [address] Care Team Providers Care Evaluation Analyst Name Role Phone Anthony FARRIS, [place] Primary Care Provider Andre Diaz Unavailable [phone] Allergies No Known Allergies Results Component Value Reference Range Notes Pathology (Not yet reviewed by provider) Interpretation: Performing Lab:[facility], [address] [place] [phone] Notes/Report: Name: Bridgett Reid Age/Sex: 59/M : 1965 Unit#: [id number] Attend Dr: Andre Ayala MD Re05/14/24 Status : [facility] Location: [facility] Disch: SPEC : [id number] REC STATUS: VANNA PALM NUM: [id number] YOVANNY: 05/14/24-851 [facility] DR: Andre Ayala MD ENTERED: 05/14/24- SP TYPE: Surgical OTHR DR: Chi Cruz MD ORDERED: HE Stain/ , Gross Micro L4/7 Diagnosis A. Colon, ascending, biopsy: Colonic mucosa with lymphoid aggregates and no specific change; no colitis, granulomas or dysplasia. B. Colon, transverse , biopsy: Colonic mucosa with lymphoid aggregates and no specific change; no colitis, granulomas or dysplasia. C. Colon, descending , biopsy: Colonic mucosa with lymphoid aggregates and focal lamina propria hemorrhage, otherwise no specific change; no colitis, granulomas or dysplasia. D. Colon, at 60 cm, polyp: Hyperplastic polyp. E. Colon, at 60 cm, biopsy around polyp: Colonic mucosa with no specific change; no colitis, granulomas or dysplasia. F. Colon, sigmoid, b iopsy: Colonic mucosa with lymphoid aggregates and focal lamina propria hemorrhage, otherwise no specific change; no colitis, granulomas or dysplasia. G. Colon, rectum, bi opsy: Chronic colitis/proctitis with mild activity; negative for dysplasia. Clinical History Pre-Op Dx: Screening , ulcerative (chronic) pancolitis without complications, hx ulcerative colitis Post-Op Dx: Polyp, proctitis Microscopic Description Microscopic sections reviewed. Material Received A. Ascending colon B. Transverse colon C. Descending colon D. Polyp at 60 cm E. Bx's around polyp at 60 cm F. Sigmoid colon G. Rectal CONTINUED ON NEXT PAGE Name: Bridgett Reid Age/Sex: 59/M : 1965 Unit#: [id number] Attend Dr: Andre Ayala MD Re05/14/24 Status : [facility] Location: [place] Disch: SPEC : [id number] RECD : 05/14/24 STATUS: VANNA PALM NUM: [id number] YOVANNY: 05/14/24 [facility] DR: Andre Ayala MD ENTERED: 05/14/24 SP TYPE: Surgical OTHR DR: Chi Cruz MD ORDERED: HE , Gross Micro L4/ Gross Description Received in seven parts. Part A: Received in formalin labeled ?ascending colon? are several minute to 0.25 cm flores- pink irregular tissu e fragments, submitted in toto in a cassette labeled A. Part B: Received in formalin labeled ?transverse colon? are multiple flores and flores-pink irregular and rectan gular tissue fragments ranging from 0.1-0.35 cm, submitted in toto in a cassette labeled B. Part C: Received in formalin labeled ?ascending colon are multiple flores and flores-pink irregular and rectan gular tissue fragments ranging from 0.1 to 0.45 cm, submitted in toto in a cassette labeled C. Part D: Received in formalin labeled ?polyp at 60 cm? are 2 flores irregular and rectangular tissue fragments courtney suring 0.15 and 0.35 cm, submitted in toto in a cassette labeled D. Part E: Received in formalin labeled ?biopsies around polyp at 60 cm? are 4 flores-pink irregular tissue fra gments ranging from 0.1-0.25 cm, submitted in toto in a cassette labeled E. Part F: Received in formalin labeled ?sigmoid colon? are multiple flores and flores-pink irregular and rectan gular tissue fragments ranging from minute to 0.5 cm, submitted in toto in a cassette labeled F. Part G: Received in formalin labeled ?rectal? are 3 garcia-flores irregular and rectangular tissue fragments ran ging from 0.25-0.3 cm, submitted in toto in a cassette labeled G. CEDS Copies To: Chi Cruz MD [facility] Primary Care,Karina [address] [place] [address] Andre Ayala MD [facility] [address] [place] [address] CONTINUED ON NEXT PAGE Name: Bridgett Reid Age/Sex: 59/M : 1965 Unit#: [id number] Attend Dr: Andre Ayala MD Re05/14/24 Status : [facility] Location: [facility] Disch: SPEC : [id number] RECD : 05/14/24 STATUS: VANNA PALM NUM: [id number] YOVANNY: 05/14/24 [facility] DR: Andre Ayala MD ENTERED: 05/14/24 SP TYPE: Surgical OTHR DR: Chi Cruz MD ORDERED: SARAH Guerra/Tristen Cornelius Micro L4/7 Signed (si gnature on file) Adali [place] 05/15/24 1132 END OF REPORT Reason For Referral No Information Medications Medication SIG (Take, Route, Frequency, Duration) [...] Problem Status W/U Status Risk Notes Problem Screening for malignant neoplasm of colon (608221607) Encounter for screening for malignant neoplasm of colon (Z12.11) Active confirmed Problem Diverticular disease of colon (928865172) Diverticulosis of large intestine without perforation or abscess without bleeding (K57.30) Active confirmed Problem Chronic ulcerative proctitis (04657714) Ulcerative proctitis, without complications (K51.20) Active confirmed Problem Chronic ulcerative pancolitis (114586146) Ulcerative chronic pancolitis without complications (K51.00) Active confirmed Vital Signs Blood pressure diastolic 00 mm Hg 01/10/2024 Height 70 in 01/10/2024 Blood pressure systolic 00 mm Hg 01/10/2024 Weight 272 lbs 01/10/2024 BMI 39.02 kg/m2 01/10/2024 Encounters Encounter Location Date Provider Diagnosis [facility] Outpatient [address] [place] [phone] 05/14/2024 Andre Ayala Colon cancer screeni Z12.11 ; Colon polyps K63.5 ; Ulcerative proctitis, without complications K51.20 and Diverticulosis of large intestine without perforation or abscess without bleeding K57.30 [facility] [address] [place] [address] 01/10/2024 Andre Ayala Ulcerative chronic pancolitis without [...] keep you advised of his progress. 01/10/2024 Ulcerative chronic pancolitis without complications (ICD-10 [...] to keep you advised of his progress. 05/14/2024 Ulcerative proctitis, without complications (ICD-10 - K51.20) 05/14/2024 Diverticulosis of large intestine without perforation or abscess without bleeding (ICD-10 - K57.30) Plan Of Treatment Pending Test Test Name Order Date Pathology 05/14/2024 Future Test Test Name Order Date COLONOSCOPY 03/20/2014 COLONOSCOPY 01/10/2024 Insurance Providers Payer Name Payer Address Payer Phone Subscriber Number Group Number Insured Name Patient Relationship to Insured Coverage Start Date Coverage End Date [employer] ([employer]) [address] [place] [address] [id number] BRIDGETT REID Self - patient is the insured Medical (General) History Medical History History ICD Code Ulcerative colitis--pancolit [...]
[2024-10-10 06:19] LABS: MANUAL DIFF FLAG NO
[2024-10-10 07:25] LABS: Appearance Urine Clear; Color Urine Yellow; Glucose Urine UA Negative (Negative); Leukocyte Esterase Urine Negative (Negative); Nitrite Urine Negative (Negative); Specific Gravity - Urine 1.025 (1.005-1.025); UMIC TRIGGER UACC YES; Urine Blood Negative (Negative); Urine Ketones Trace mg/dL (Negative); Urine Protein 300 (3+) mg/dL (Neg-Trace)
[2024-10-10 07:31] LABS: Bacteria Urine None Seen (None Seen); Hyaline Casts Urine 0-2 /LPF (0-2); RBC Urine 0-2 /HPF (0-2); Squamous Epithelial Cell Urine 0-2 /HPF (0-2); WBC Urine 0-5 /HPF (0-5)
[2024-10-10 07:53] LABS: Basophils Absolute Auto 0.1 X10*3/uL (0.0-0.2); Basophils Percent Auto 0.7 % (0-2); Eosinophils Absolute Auto 0.2 X10*3/uL (0.0-0.4); Eosinophils Percent Auto 2.8 % (0-4); Hematocrit 50.3 % (42.0-52.0); Hemoglobin 17.2 g/dl (14.0-18.0); Imm Gran Abs Auto 0.09 X10*3/uL (0.00-0.03); Imm Gran Pct Auto 1.3 % (0.0-0.4); Lymphocytes Absolute Auto 2.3 X10*3/uL (1.2-4.9); Lymphocytes Percent Auto 33.8 % (20-40); Mean Corpuscular HGB Conc 34.2 g/dl (31.0-36.0); Mean Corpuscular Hemoglobin 30.2 pg (27.0-33.0); Mean Corpuscular Volume 88.4 fL (80.0-98.0); Mean Platelet Volume 11.1 fL (9.4-12.4); Monocytes Absolute Auto 0.7 X10*3/uL (0.1-1.2); Monocytes Percent Auto 10.4 % (2-11); Neutrophils Absolute Auto 3.5 x10*3/uL (2.0-8.3); Platelet Count 229 X10*3/uL (160-400); Red Blood Count 5.69 X10*6/uL (4.60-5.80); White Blood Count 6.8 X10*3/uL (4.8-10.8)
[2024-10-10 08:04] LABS: Alanine Aminotransferase 33 U/L (0-40); Albumin Level 3.8 g/dL (3.5-5.0); Alkaline Phosphatase 89 U/L (39-117); Anion Gap 13 (12-20); Aspartate Amino Transferase 27 U/L (5-37); Bilirubin Total 0.9 mg/dL (0.0-1.0); Blood Urea Nitrogen 22 mg/dL (9-16); Calcium 9.2 mg/dL (8.4-10.2); Carbon Dioxide 32 mmol/L (22-29); Chloride 99 mmol/L (96-108); Cholesterol 176 mg/dL (<200); Estimated Glomerular Filt Rate > 60; Glucose Fasting 107 mg/dL (60-99); HDL Cholesterol 37 mg/dL (>40); LDL Cholesterol Calculated 120 mg/dL (<100); Potassium 3.5 mmol/L (3.3-5.1); Sodium 140 mmol/L (135-145); Total Protein 7.1 g/dL (6.5-8.0); Triglycerides 96 mg/dL (<150)
[2024-10-10 08:36] LABS: TSH reflex Free T4 1.75 uIU/mL (0.32-4.0)
== END 2024-10-10 06:06 | disposition home or self-care (01) ==
LOC: HO.LAB 06:05
PROVIDERS: PCP Internal Medicine; Visit Provider Internal Medicine
DX: D64.9 Anemia, unspecified (principal); E78.00 Pure hypercholesterolemia, unspecified
CPT/HCPCS: 36415; 80053; 80061; 81001; 84443; 85025

== ENCOUNTER 2024-10-22 15:25 | Outpatient (AMB) | payer OTHER, SELFPAY ==
[2024-10-22 15:41] VITALS: BP 120/86; PULSE 74; O2SAT 93; BMI 39.2
--- NOTE | 2024-10-22 15:41 | A.OFFPC_ITS ---
Vital Signs 10/22/24 15:41 Height 5 ft 10 in Weight 273 lb BMI 39.2 BP 120/86 Blood Pressure Location Lt brachial Position Sitting Pulse 74 Pulse Source Pulse Oximeter Pulse Oximetry (%) 93 Oxygen Delivery Method Room Air Intake Visit Reasons: 4 Months f/u Fixture Relamper Required: No Accompanied by: Self / Same As Patient Allergies No Known Allergies Allergy (Verified 10/22/24 16:05) Medication List - Last Reconciled 10/23/24 by Chi Cruz MD atorvastatin 80 mg PO BEDTIME 90 days blood pressure monitor As directed chlorthalidone 25 mg PO DAILY 90 days cholecalciferol (vitamin D3) 50 mcg PO DAILY 90 days clotrimazole-betamethasone 1-0.05 % 1 appl topical BID 30 days diltiazem HCl CD 120 mg PO DAILY losartan 100 mg PO DAILY 90 days losartan 25 mg PO DAILY 90 days Tobacco use date assessed: 10/22/24 Dental Screening Dental Screen Date: 10/22/24 Did you have a dental visit in the last 12 months?: No Did you have a dental problem in the last 6 months where you did not have access to dental care?: No Was dental information given to patient?: No HPI 4 Months f/u HPI Details Patient comes in today for his follow-up visit States that he feels okay He denies any headaches or dizziness Denies any chest pains, no increased shortness of breath No nausea/vomiting, no abdominal pain No change in bowel habits noted He had his follow-up labs done a couple of weeks ago - to discuss his results States that he still has recurrent bilateral leg pain that tend to occur after he is standing for a few minutes He was sent for arterial studies of the lower extremities a couple of months ago and would like to know how his test came out [facility] Medical History Bilateral hand pain FSGS (focal segmental glomerulosclerosis) Obesity (BMI 30-39.9) Ulcerative colitis without complications Persistent proteinuria Vitamin D deficiency GERD without esophagitis Pure hypercholesterolemia Benign essential hypertension Surgical History Hx of colonoscopy H/O right knee surgery H/O left knee surgery Family History Father Diabetes Hypertension CVD (cardiovascular disease) Mother Medical history unknown Social History Housing: House Are you a primary child day care teacher to a significant other at home: No Do you presently have visiting nurse or other home services: No Patient Tobacco Use Status: Former Tobacco user Tobacco use type: Cigarette Years Smoked: 4 e-Cigarette/Vaping Use: Never Used service: No Current occupational status: employed Cognitive needs: No Hearing needs: No Vision needs: No Questionnaire PHQ-9 Over the last 2 weeks, how often have you been bothered by any of the following problems? 1. Little interest or pleasure in doing things: not at all 2. Feeling down, depressed, or hopeless: not at all 3. Trouble falling or staying asleep, or sleeping too much: not at all 4. Feeling tired or having little energy: not at all 5. Poor appetite or overeating: not at all 6. Feeling bad about yourself - or that you are a failure or have let yourself or your family down: not at all 7. Trouble concentrating on things, such as reading the newspaper or watching television: not at all 8. Moving or speaking so slowly that other people could have noticed. Or the opposite - being so fidgety or restless that you have been moving around a lot more than usual: not at all 9. Thoughts that you would be better off or of hurting yourself in some way: not at all Total score: 0 Depression Screening Interpretation: Negative Depression Screening Done: Yes 69136 - PHQ-9 Billing: Yes Source: Developed by Drs. Andre Amaral, Brenna Hamilton, Florin Glover and colleagues, with an educational sumaya from [employer]. Thrive Questionnaire Date Thrive assessed: 10/22/24 I am a: Patient What is your living situation today?: I have a steady place to live Within the past 12 months, did the food you bought not last and you didn't have the money to get more?: Never true Within the past 12 months, did you worry whether your food would run out before you got money to buy more?: Never true Do you have trouble paying for medicines?: No Do you have trouble getting transportation to medical appointments?: No Do you have trouble paying your heating and electricity bill?: No Do you have trouble taking care of your child, family member or friend?: No Do you have trouble with day-to-day activities such as bathing, preparing meals, shopping, managing finances, etc.?: No Are you currently unemployed and looking for a job?: No Are you interested in more education?: No Please select the resources that you would like help with: None Currently or been in a relationship where the following occur: No concerns reported THRIVE Score: 0 AUDIT C Alcohol Use Questionnaire (AUDIT-C) 1. How often do you have a drink containing alcohol?: 2-3 times a week 2. How many drinks containing alcohol do you have on a typical day when you are drinking?: 1 or 2 3. How often do you have six or more drinks on one occasion?: Less than monthly Total Score: 4 Score Reviewed/Action Taken: Yes JEY-7 AMB Questionnaire JEY-7 Date JEY - 7 assessed: 10/22/24 Feeling nervous, anxious, or on edge: 0 = Not at all Not being able to stop or control worryin = Not at all Worrying too much about different things: 0 = Not at all Trouble relaxin = Not at all Being so restless that it is hard to sit still: 0 = Not at all Becoming easily annoyed or irritable: 0 = Not at all Feeling afraid as if something awful might happen: 0 = Not at all Total JEY-7 score (0-4 normal; 5-9 mild; 10-14 moderate; 15-21 severe): 0 Source: Developed by Drs. Andre Amaral, Brenna Hamilton, Florin Glover and colleagues, with an educational sumaya from [employer]. Review of Systems Const Denies chills, Denies fatigue, Denies fever(s) and Denies headache(s) ENT Denies dysphagia, Denies dizziness, Denies otalgia, Denies headache(s), Denies neck pain, Denies odynophagia and Denies sore throat Card Denies chest pain, Denies palpitations and Denies dyspnea Resp Denies chest congestion, Denies cough and Denies dyspnea GI Denies abdominal pain, Denies hematochezia, Denies constipation, Denies dysphagia, Denies diarrhea, Denies nausea, Denies odynophagia and Denies vomiting Denies difficulty urinating, Denies dysuria, Denies nocturia and Denies urinary frequency Musc Denies back pain and Denies neck pain Skin/Breast Denies rash Neuro Denies dizziness and Denies headache(s) Endo Denies fatigue and Denies palpitations Physical exam (Primary Care) Vital Signs: Last Vital Signs Pulse 74 10/22/24 15:41 BP 120/86 10/22/24 15:41 Pulse Ox 93 10/22/24 15:41 Oxygen Delivery Method Room Air 10/22/24 15:41 BMI result Body Mass Index 39.2 Tobacco/Smoking Status: Tobacco use Status Tobacco use date assessed 10/22/24 10/22/24 15:44 Patient Tobacco Use Status Former Tobacco user 10/22/24 15:41 Tobacco use type Cigarette 10/22/24 15:41 e-Cigarette/Vaping Use Never Used 10/22/24 15:41 PHQ-9: PHQ-9 Score PHQ-9: Total score 0 10/22/24 16:07 Depression Screening Interpretation: Negative Thrive Assessment: Date of Thrive Assessment Date Thrive assessed 10/22/24 10/22/24 15:52 Currently or been in a relationship where the following occur: No concerns reported Const General: no acute distress and alert HENMT Ears: TM's normal bilaterally and EAC's normal Throat: Yes posterior oropharynx normal and Yes tonsils normal (no TP congestion) Neck Neck: Yes supple and No lymphadenopathy Thyroid: Thyroid normal Resp Auscultation: clear to auscultation bilaterally, no rales and no wheezes Cardio Rate: regular rate Rhythm: regular rhythm Heart sounds: no murmurs GI Palpation (GI): Soft to palpation and nontender Auscultation: normal bowel sounds General: Yes no CVA tenderness Back/Spine/Pelvis Back: no CVA tenderness Thoracic/Lumbar Spine: No lumbar spinal tenderness Skin Rashes: no rashes Extrem General: Yes no clubbing, cyanosis or edema Results Reviewed Results Reviewed: Laboratory Tests 10/10/24 10/10/24 06:10 06:17 WBC 6.8 Hgb 17.2 Hct 50.3 Plt Count 229 Sodium 140 Potassium 3.5 Creatinine 1.19 Estimated GFR > 60 Fasting Glucose 107 H Calcium 9.2 AST 27 ALT 33 Triglycerides 96 Cholesterol 176 LDL Cholesterol, Calc 120 H HDL Cholesterol 37 L TSH 1.75 Ur Specific [place] 1.025 Urine Protein 300 (3+) H Urine Glucose (UA) Negative Urine Blood Negative Urine Nitrite Negative Ur Leukocyte Esterase Negative Coding Level of Care Code Est Pt Level 4 (25588) Complex EM visit Add On G2211 Diagnoses Benign essential hypertension I10 Pure hypercholesterolemia E78.00 Impaired fasting glucose R73.01 FSGS (focal segmental glomerulosclerosis) N05.1 Vitamin D deficiency E55.9 GERD without esophagitis K21.9 Ulcerative colitis without complications, unspecified location K51.90 Ulcerative colitis location: unspecified ulcerative colitis location Pain in both knees, unspecified chronicity M25.561; M25.562 Chronicity: unspecified Obesity (BMI 30-39.9) E66.9 Additional Codes PHQ-9 - 38273 - PHQ-9 Billing: Yes ([id number]) Assessment & Plan Assessment & Plan (1) Benign essential hypertension: Code(s): I10 - Essential (primary) hypertension Category: Medical Plan: Reinforced low sodium diet - goal is systolic BP of 120 mm or less Continue Losartan 100 mg + 25 mg (125 mg) QD, Chlorthalidone 25 mg QD and Diltiazem CD 120 mg QD Follow up with nephrology as scheduled (2) Pure hypercholesterolemia: Code(s): E78.00 - Pure hypercholesterolemia, unspecified Category: Medical Plan: Results of his labs done a couple of weeks ago reviewed and discussed with patient Reinforced low cholesterol diet Continue Atorvastatin 80 mg QD Will recheck his labs and fasting lipids in 4 months for follow up (3) Impaired fasting glucose: Code(s): R73.01 - Impaired fasting glucose Category: Medical Plan: His HgbA1c was at 6.3% when previously checked Reinforced low calorie/low carb diet, exercise and weight loss Patient wishes to continue with diet modification for now and avoid taking any Rx for his blood sugar as much as possible Will recheck his FBS and HgbA1c again in 4 months for follow-up (4) FSGS (focal segmental glomerulosclerosis): Comment: (+) 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 Alejandra) as scheduled Patient has also reportedly been advised to consider bariatric (gastric sleeve) surgery to help improve his health and comorbidities - he has explored weight management recently and remains hesitant to undergo bariatric surgery at present (5) Vitamin D deficiency: Code(s): E55.9 - Vitamin D deficiency, unspecified Category: Medical Plan: Continue Vitamin D3 2000 units QD (6) GERD without esophagitis: Code(s): K21.9 - Gastro-esophageal reflux disease without esophagitis Category: Medical Plan: Dietary restrictions reinforced He used to take Omeprazole 20 mg QD but states that he has not needed to take his Rx in a while now (7) Ulcerative colitis without complications: Comment: (+) diffuse ulcerative colitis diagnosed on previous colonoscopy in 2002 (Dr. Ayala) Code(s): K51.90 - Ulcerative colitis, unspecified, without complications Category: Medical Qualifiers: Ulcerative colitis location: unspecified ulcerative colitis location Qualified Code(s): K51.90 - Ulcerative colitis, unspecified, without complications Plan: Currently stable with no acute flare ups Colonoscopy done in 2013 came out normal and thinks that he was due for repeat colonoscopy in May 2019 but this was delayed/held up due to the COVID-19 pandemic Reviewing his 2013 biopsy revealed findings of a quiescent colitis with no evide nce of dysplasia and Dr. Ayala actually recommended back then that patient can wait up to 10 years for a repeat colonoscopy if he has no recurrent flare ups of his colitis He had his repeat colonoscopy done on May 14, [address] Ayala - was advised to get repeat colonoscopy again in 5 years (2028) (8) Bilateral knee pain: Code(s): M25.561 - Pain in right knee; M25.562 - Pain in left knee Category: Medical Qualifiers: Chronicity: unspecified Qualified Code(s): M25.561 - Pain in right knee; M25.562 - Pain in left knee Plan: Patient was previously sent for arterial studies of his lower extremities when he was complaining of recurrent pain in both legs His arterial studies done back in July 2024 came back normal - normal peripheral arterial testing with velocity measurements indicating no significant vascular disease Patient now thinks that his leg pain may actually be arising from his knees as he has noticed that both of his knees have been aching and hurting a lot lately Will send patient for x-rays of both knees for further evaluation (9) Obesity (BMI 30-39.9): Code(s): E66.9 - Obesity, unspecified Category: Medical Plan: Reinforced diet/exercise as tolerated /lose weight He has been advised by Nephrology to consider gastric sleeve / bariatric surgery to help improve his health - patient has obesity-related secondary FSGS and persistent proteinuria and has been counseled that this can improve with significant weight loss He was referred previously to weight management for further evaluation but patient remains very hesitant to undergo bariatric surgery at this time Plan Follow up in 4 months Orders: Orders XR knee LT 4V 10/22/24 M25.562 - Pain in left knee XR knee RT 4V 10/22/24 M25.561 - Pain in right knee Complete Blood Count Auto Diff 4 Months D64.9 - Anemia, unspecified Lipid Panel 4 Months E78.00 - Pure hypercholesterolemia, unspecified TSH reflex Free T4 4 Months E78.00 - Pure hypercholesterolemia, unspecified Vitamin B12 and Folate 4 Months E53.8 - Deficiency of other specified B group vitamins, K51.90 - Ulcerative colitis, unspecified, without complications Comprehensive [place]. Panel Fast 4 Months E78.00 - Pure hypercholesterolemia, unspecified Hemoglobin A1c 4 Months R73.01 - Impaired fasting glucose UA CC w/rflx Micro + Cult 4 Months R30.0 - Dysuria Vitamin D 25-OH Total 4 Months E55.9 - Vitamin D deficiency, unspecified Medications: Refilled losartan To be taken together with Losartan 100 mg for a total of 125 mg DAILY DOSE 25 mg PO DAILY 90 days 90 tabs 1RF
--- OUTSIDE RECORDS SUMMARY | 2024-10-22 18:12 | XMS_ITS | Clinical Summary ---
Author Organization [facility] Address [address] [place] [address] Phone Care Team Providers Care Postal Sorting Officer Name Role Phone Chi Cruz MD Primary Care Provider [phone] Allergies No known active allergies Medications atorvastatin [...] this topic Insurance Unicare Unicare Care Teams Postal Sorting Officer Relationship Specialty Start Date End Date Chi Cruz MD [address] [place] [id number] PCP - General 07/07/20
== END 2024-10-22 16:19 | disposition home or self-care (01) ==
LOC: HO.HMCH 15:26
PROVIDERS: PCP Internal Medicine; Visit Provider Internal Medicine
DX: I10 Essential (primary) hypertension (principal); E78.00 Pure hypercholesterolemia, unspecified; K51.90 Ulcerative colitis, unspecified, without complications; R73.01 Impaired fasting glucose; N05.1 Unspecified nephritic syndrome with focal and segmental glomerular lesions; E55.9 Vitamin D deficiency, unspecified; K21.9 Gastro-esophageal reflux disease without esophagitis; M25.561 Pain in right knee; M25.562 Pain in left knee; E66.9 Obesity, unspecified

== ENCOUNTER → 2024-10-22 15:25 | Outpatient (BNVA) | payer OTHER, SELFPAY | PROVIDERS: PCP Internal Medicine; Visit Provider Internal Medicine | DX: I10 Essential (primary) hypertension (principal); E78.00 Pure hypercholesterolemia, unspecified; R73.01 Impaired fasting glucose; N05.1 Unspecified nephritic syndrome with focal and segmental glomerular lesions; E55.9 Vitamin D deficiency, unspecified; K21.9 Gastro-esophageal reflux disease without esophagitis; K51.90 Ulcerative colitis, unspecified, without complications; M25.561 Pain in right knee; M25.562 Pain in left knee; E66.9 Obesity, unspecified; Z68.39 Body mass index [BMI] 39.0-39.9, adult; Z79.899 Other long term (current) drug therapy | CPT/HCPCS: 96127 ==

== ENCOUNTER 2025-02-18 06:17 | Outpatient (REF) | payer OTHER, SELFPAY ==
[2025-02-18 06:38] LABS: MANUAL DIFF FLAG NO
[2025-02-18 07:16] LABS: Hematocrit 47.2 % (42.0-52.0); Hemoglobin 16.1 g/dl (14.0-18.0); Imm Gran Abs Auto 0.06 X10*3/uL (0.00-0.03); Imm Gran Pct Auto 1.0 % (0.0-0.4); Lymphocytes Absolute Auto 2.0 X10*3/uL (1.2-4.9); Mean Corpuscular HGB Conc 34.1 g/dl (31.0-36.0); Mean Corpuscular Hemoglobin 30.7 pg (27.0-33.0); Mean Corpuscular Volume 89.9 fL (80.0-98.0); NRBC Abs Auto 0.000 X10*3/uL (0.0-0.012); NRBC Pct Auto 0.0 /100WBC (0.0-0.2); Platelet Count 219 X10*3/uL (160-400); Red Blood Count 5.25 X10*6/uL (4.60-5.80); White Blood Count 6.1 X10*3/uL (4.8-10.8)
[2025-02-18 07:26] LABS: Hemoglobin A1C 183.4677 umol/L; Total Hemoglobin (HGBA1C) 4170.6720 umol/L
[2025-02-18 07:46] LABS: Blood Urea Nitrogen 26 mg/dL (9-16)
[2025-02-18 07:56] LABS: Appearance Urine Clear; Glucose Urine UA Negative (Negative); PH 6.5 (5.0-9.0); Specific Gravity - Urine 1.020 (1.005-1.025); UMIC TRIGGER UACC YES
[2025-02-18 07:59] LABS: Alanine Aminotransferase 31 U/L (0-40); Albumin Level 3.9 g/dL (3.5-5.0); Alkaline Phosphatase 85 U/L (39-117); Anion Gap 13 (12-20); Aspartate Amino Transferase 30 U/L (5-37); Blood Urea Nitrogen 26 mg/dL (9-16); Calcium 9.2 mg/dL (8.4-10.2); Carbon Dioxide 33 mmol/L (22-29); Chloride 98 mmol/L (96-108); Cholesterol 187 mg/dL (<200); Estimated Glomerular Filt Rate > 60; HDL Cholesterol 33 mg/dL (>40); Potassium 3.6 mmol/L (3.3-5.1); Sodium 140 mmol/L (135-145); Total Protein 7.0 g/dL (6.5-8.0); Triglycerides 106 mg/dL (<150)
[2025-02-18 08:01] LABS: Protein/Creatinine Ratio, Ur 0.96 (<0.2); Total Protein Urine Random 119 mg/dL (<12)
[2025-02-18 08:22] LABS: Folate 9.9 ng/mL (> or = 4.0); Vitamin B12 409 pg/mL (200-900)
== END 2025-02-18 06:18 | disposition home or self-care (01) ==
LOC: HO.LAB 06:17
PROVIDERS: Absent Provider Internal Medicine Nephrology; PCP Internal Medicine; Visit Provider Internal Medicine
DX: K51.90 Ulcerative colitis, unspecified, without complications (principal); E78.00 Pure hypercholesterolemia, unspecified; E55.9 Vitamin D deficiency, unspecified; D64.9 Anemia, unspecified; E53.8 Deficiency of other specified B group vitamins; R73.01 Impaired fasting glucose; N05.1 Unspecified nephritic syndrome with focal and segmental glomerular lesions; R30.0 Dysuria
CPT/HCPCS: 36415; 80053; 80061; 81001; 82306; 82570; 82607; 82746; 83036; 84156; 84443; 84520; 85025

== ENCOUNTER 2025-02-27 15:29 | Outpatient (AMB) | payer OTHER, SELFPAY ==
--- OUTSIDE RECORDS SUMMARY | 2024-05-14 04:30 | XMS_ITS ---
Author Organization [facility] Address [address] [place] [id number] Care Team Providers Care Horse Stud Manager Name Role Phone Anthony FARRIS, [place] Primary Care Provider Unava ilable Jamie Andre Unavailable [phone] REASON FOR VISIT screening colon Problems Problem Type SNOMED Code ICD Code Onset Dates Problem Status W/U Status Risk Notes Problem Chronic ulcerative proctitis (51075870) Ulcerative proctitis, without complications (K51.20) Active confirmed Problem Diverticular disease of colon (968949690) Diverticulosis of large intestine without perforation or abscess without bleeding (K57.30) Active confirmed Encounters Encounter Location Date Provider Diagnosis [facility] [place] [address] [place] [phone] 05/14/2024 Andre Ayala Colon cancer scree crescencio Z12.11 ; Colon polyps K63.5 ; Ulcerative proctitis, without complications K51.20 and Diverticulosis of large intestine without perforation or abscess without bleeding K57.30 Assessments Encounter Date Diagnosis (ICD Code) Assessment Notes Treatment Notes Treatment Clinical Notes Section Notes 05/14/2024 Colon cancer screening (ICD-10 - Z12.11) 05/14/2024 Colon polyps (ICD-10 - K63.5) 05/14/2024 Ulcerative proctitis, without complications (ICD-10 - K51.20) 05/14/2024 Diverticulosis of large intestine without perforation or abscess without bleeding (ICD-10 - K57.30) Plan Of Treatment No Information Progress Notes * BRIDGETT REIDDOB:1965 ( 60 yo M)Acc No.[id number]:05/14/2024 COLON WITH MAC Patient: BRIDGETT CAMPBELL Provider: Zaki Ayala MD :1965 A ge:59 Y S ex:Male Date:05/14/2024 Address:[address] [place], [place] [id number] Pcp:Chi Cruz MD Subjective: * Chief Complaints: * 1 . Screening colon. * Medical History: Objective: * Vitals: Assessment: * Assessment: 1. C olon cancer screening - Z12.11 (Primary) 2 . C olon polyps - K63.5? 3. U lcerative proctitis, without complications - K51.20 4 . D iverticulosis of large intestine without perforation or abscess without bleeding - K57.30 ? Plan: * Treatment: * Procedure Codes: 4 5385 LESION REMOVAL COLONOSCOPY, Modifiers: 33 , 64275 COLONOSCOPY AND BIOPSY, Modifiers: 59 , 33 * * The named appointment provid er may or may not be the originator of this progress note, and it is not deemed complete until electronically signed by the appointment provider. Sign off status: Pending * Provider: Zaki Ayala MD Date: 07/14/2023 Generated for Wilber arcos/Brittney/Romanitting on: 0 02/27/2025 05:30 PM EDT
--- NOTE | 2025-02-27 15:33 | HO.NEPHOV ---
Vital Signs 02/27/25 15:35 Height 5 ft 10 in Weight 264 lb 4 oz BMI 37.9 BP 130/86 Blood Pressure Location Lt brachial Position Sitting Pulse 75 Pulse Source Pulse Oximeter Pulse Oximetry (%) 95 Oxygen Delivery Method Room Air Intake Visit Reasons: 6 mo fu w/ labs-Conf Inspector Soldering Required: No Accompanied by: Self / Same As Patient Allergies No Known Allergies Allergy (Verified 02/27/25 15:35) HPI Comments Details: Romain was seen in the office in follow-up of his proteinuria. He has history of hypertension. He denies being a diabetic. 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 He has not lost any significant weight. His blood pressure has been at goal. He does not have any urinary symptoms or worsening pedal edema. He denies any chest pain, shortness of breath, proximal nocturnal dyspnea, orthopnea or orthostatic symptoms. Creatinine stable, most recently 1.17. Urine protein/creatinine ratio 0.96, improved from 2.33 last year. He claimed to be compliant with his medications. There were no new active complaints at the time this office visit. [facility] Medical History Bilateral hand pain FSGS (focal segmental glomerulosclerosis) Obesity (BMI 30-39.9) Ulcerative colitis without complications Persistent proteinuria Vitamin D deficiency GERD without esophagitis Pure hypercholesterolemia Benign essential hypertension Surgical History Hx of colonoscopy H/O right knee surgery H/O left knee surgery Family History Father Diabetes Hypertension CVD (cardiovascular disease) Mother Medical history unknown Social History Housing: House Are you a primary care consultant to a significant other at home: No Do you presently have visiting nurse or other home services: No Patient Tobacco Use Status: Former Tobacco user Tobacco use type: Cigarette Years Smoked: 4 e-Cigarette/Vaping Use: Never Used service: No Current occupational status: employed Cognitive needs: No Hearing needs: No Vision needs: No Review of Systems Const All systems reviewed & are unremarkable except as noted in HPI and below Physical Exam Vital Signs: Last Vital Signs Pulse 75 02/27/25 15:35 BP 130/86 02/27/25 15:35 Pulse Ox 95 02/27/25 15:35 Oxygen Delivery Method Room Air 02/27/25 15:35 BMI result Body Mass Index 37.9 Const General: comfortable and no acute distress Orientation/consciousness: patient oriented x3 HEENT Head: Yes normocephalic Mouth: Normal oral and palatal mucosa present Eyes EOM: EOMs intact bilaterally Neck Neck: Yes supple Resp Auscultation: clear to auscultation bilaterally Cardio Jugular venous distension: no JVD Rate: regular rate GI Palpation (GI): Soft to palpation Auscultation: normal bowel sounds General: Yes no CVA tenderness Back/Spine/Pelvis Back: no CVA tenderness Skin General skin exam: no rashes or lesions noted Neuro General: patient oriented x3 and moves all extremities Extrem General: Yes no pedal edema and No edema Results Reviewed Nephrology Results: Hgb, (14.0-18.0) 16.1 g/dl 02/18/25 WBC, (4.8-10.8) 6.1 X10*3/uL 02/18/25 Plt Count, (160-400) 219 X10*3/uL 02/18/25 Sodium, (135-145) 140 mmol/L 02/18/25 Potassium, (3.3-5.1) 3.6 mmol/L 02/18/25 Chloride, (96-108) 98 mmol/L 02/18/25 Carbon Dioxide, (22-29) 33 mmol/L H 02/18/25 BUN, (9-16) 26 mg/dL H 02/18/25 Creatinine, (0.5-1.4) 1.17 mg/dL 02/18/25 Calcium, (8.4-10.2) 9.2 mg/dL 02/18/25 Urine Protein, (Neg-Trace) 100 (2+) mg/dL H 02/18/25 Urine Creatinine 124.13 mg/dL 02/18/25 Protein/Creatinin Ratio, (<0.2) 0.96 H 02/18/25 Assessment & Plan Assessment & Plan (1) FSGS (focal segmental glomerulosclerosis): Comment: (+) obesity-related secondary FSGS on renal biopsy Code(s): 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 Category: Medical (2) Benign essential hypertension: Code(s): I10 - Essential (primary) hypertension Category: Medical (3) Persistent proteinuria: Comment: due to obesity-related secondary FSGS - diagnosed by renal Bx Code(s): R80.1 - Persistent proteinuria, unspecified Category: Medical Plan Romain has longstanding hypertension. He has proteinuria from obesity related secondary FSGS. He is not known to have any microscopic hematuria. He is on losartan 100mg PO daily. He is an ideal candidate for gastric sleeve surgery, though he has been eating healthier and lost 9lbs since last visit 4 months ago. He can continue on Diltiazem 120 mg daily for improvement in proteinuria as he has maxed out on ARB- his proteinuria has improved since this addition. I am considering adding Jardiance in the future for his renal protective effects. He needs to continue to modify his lifestyle and lose significant weight. He should try Mounjaro/Ozempic or gets referred to weight management program. He avoids nonsteroidal anti-inflammatories if at all possible and maintain good hydration. Minimize salt intake. He will follow up in 4-6 months, labs prior. Answered all questions. Coding Level of Care Code Est Pt Level 4 (11957) Diagnoses FSGS (focal segmental glomerulosclerosis) N05.1 Benign essential hypertension I10 Persistent proteinuria R80.1
[2025-02-27 15:35] VITALS: BP 130/86; PULSE 75; O2SAT 95; BMI 37.9
--- OUTSIDE RECORDS SUMMARY | 2025-02-27 17:31 | XMS_ITS | Clinical Summary ---
Author Organization [facility] Address [address] [place] [address] Phone Care Team Providers Care Barrel Polisher Inside Name Role Phone Chi Crzu MD Primary Care Provider [phone] Allergies No known active allergies Medications atorvastatin [...] Cancer Screening: Sigmoidoscopy 01/04/2013 Influenza Vaccine (#1) 2025 Hepatitis B Vaccine Aged Out No longe r eligible based on patient's age to complete this topic Insurance Un[employer]are Unicare Care Teams Barrel Polisher Inside Relationship Specialty Start Date End Date Chi Cruz MD [address] [place] [id number] PCP - General 07/07/20
--- OUTSIDE RECORDS SUMMARY | 2025-02-27 17:31 | XMS_ITS | Patient Health Record ---
Author Organization [facility] Address [address] [place] [address] Care Team Providers Care Wheel Cutter Name Role Phone Anthony FARRIS, [place] Primary Care Provider Andre Diaz Unavailable [phone] Allergies No Known Allergies Results Component Value Reference Range Notes Pathology (Not yet reviewed by provider) Interpretation: Performing Lab:[facility], [address] [place] [id number] Notes/Report: Reason For Referral No Information Medications Medication [...] Problem Screening for malignant neoplasm of colon ([id number]) Encounter for screening for malignant neoplasm of colon (Z12.11) Active confirmed Problem Diverticular disease of colon (085702520) Diverticulosis of large intestine without perforation or abscess without bleeding (K57.30) Active confirmed Problem Chronic ulcerative proctitis (07769538) Ulcerative proctitis, without complications (K51.20) Active confirmed Problem Chronic ulcerative pancolitis (750385105) Ulcerative chronic pancolitis without complications (K51.00) Active confirmed Encounters Encounter Location Date Provider Diagnosis [facility] [place] Outpatient [address] [place] [phone] 05/14/2024 Andre Ayala Colon cancer cheri prather Z12.11 ; Colon polyps K63.5 ; Ulcerative [...] Insured Coverage Start Date Coverage End Date [employer] Insurance (SDI) [address] [place] [address] [id number] BRIDGETT REID Self - patient is the [...]
== END 2025-02-27 15:44 | disposition home or self-care (01) ==
LOC: HO.HKA 15:29
PROVIDERS: PCP Internal Medicine; Visit Provider Internal Medicine Nephrology
DX: N05.1 Unspecified nephritic syndrome with focal and segmental glomerular lesions (principal); I10 Essential (primary) hypertension; R80.1 Persistent proteinuria, unspecified
CPT/HCPCS: 99214

== ENCOUNTER 2025-02-27 15:49 | Outpatient (AMB) | payer OTHER, SELFPAY ==
--- NOTE | 2025-02-27 15:53 | MHC.PC.OV ---
Vital Signs 02/27/25 15:54 Height 5 ft 10 in Weight 263 lb 2 oz BMI 37.8 BP 120/80 Blood Pressure Location Lt brachial Position Sitting Pulse 72 Pulse Source Pulse Oximeter Temp 97.3 F Temp Source Temporal Artery Scan Pulse Oximetry (%) 93 Oxygen Delivery Method Room Air Intake Visit Reasons: FSGS, hyperlipidemia, HTN Intake Note: Patient is here to follow up on FSGS, HLD, HTN. Director Of Manufacturing Required: No Flying I Instructor: Not Required per policy Accompanied by: Self / Same As Patient Allergies No Known Allergies Allergy (Verified 02/27/25 16:31) Medication List - Last Reconciled 02/27/25 by Chi Cruz MD atorvastatin 80 mg PO BEDTIME 90 days blood pressure monitor As directed chlorthalidone 25 mg PO DAILY 90 days cholecalciferol (vitamin D3) 50 mcg PO DAILY 90 days clotrimazole-betamethasone 1-0.05 % 1 appl topical BID 30 days diltiazem HCl CD 120 mg PO DAILY losartan 100 mg PO DAILY 90 days Tobacco use date assessed: 02/27/25 Dental Screening Dental Screen Date: 10/22/24 HPI FSGS, hyperlipidemia, HTN HPI Details Patient comes in today for his follow-up visit States that he feels okay He denies any headaches or dizziness Denies any chest pains, no increased shortness of breath No nausea/vomiting, no abdominal pain No change in bowel habits noted He had his follow-up labs done last week - to discuss his results [facility] Medical History Bilateral hand pain FSGS (focal segmental glomerulosclerosis) Obesity (BMI 30-39.9) Ulcerative colitis without complications Persistent proteinuria Vitamin D deficiency GERD without esophagitis Pure hypercholesterolemia Benign essential hypertension Surgical History Hx of colonoscopy H/O right knee surgery H/O left knee surgery Family History Father Diabetes Hypertension CVD (cardiovascular disease) Mother Medical history unknown Social History (Updated 02/27/25 @ 15:57 by SHAHRIAR Strauss) Housing: House Are you a primary care program resident to a significant other at home: No Do you presently have visiting nurse or other home services: No Alcohol intake: current Alcohol intake frequency: a few times a month Patient Tobacco Use Status: Former Tobacco user Tobacco use type: Cigarette Years Smoked: 4 e-Cigarette/Vaping Use: Never Used Second Hand Smoke Exposure: Yes service: No Current occupational status: employed Cognitive needs: No Hearing needs: No Vision needs: No Questionnaire PHQ-9 Over the last 2 weeks, how often have you been bothered by any of the following problems? Depression Screening Interpretation: Negative Depression Screening Done: Yes Source: Developed by Drs. Andre Amaral, Florin Beckman and colleagues, with an educational sumaya from [employer]. Thrive Questionnaire Date Thrive assessed: 10/22/24 I am a: Patient What is your living situation today?: I have a steady place to live Within the past 12 months, did the food you bought not last and you didn't have the money to get more?: Never true Within the past 12 months, did you worry whether your food would run out before you got money to buy more?: Never true Do you have trouble paying for medicines?: No Do you have trouble getting transportation to medical appointments?: No Do you have trouble paying your heating and electricity bill?: No Do you have trouble taking care of your child, family member or friend?: No Do you have trouble with day-to-day activities such as bathing, preparing meals, shopping, managing finances, etc.?: No Are you currently unemployed and looking for a job?: No Are you interested in more education?: No Please select the resources that you would like help with: None Currently or been in a relationship where the following occur: No concerns reported THRIVE Score: 0 JEY-7 AMB Questionnaire JEY-7 Date JEY - 7 assessed: 10/22/24 Source: Developed by Drs. Andre Amaral, Florin Beckman and colleagues, with an educational sumaya from [employer]. Review of Systems Const Denies chills, Denies fatigue, Denies fever(s) and Denies headache(s) ENT Denies dysphagia, Denies dizziness, Denies otalgia, Denies headache(s), Denies neck pain, Denies odynophagia and Denies sore throat Card Denies chest pain, Denies palpitations and Denies dyspnea Resp Denies chest congestion, Denies cough and Denies dyspnea GI Denies abdominal pain, Denies hematochezia, Denies constipation, Denies dysphagia, Denies diarrhea, Denies nausea, Denies odynophagia and Denies vomiting Denies difficulty urinating, Denies dysuria, Denies nocturia and Denies urinary frequency Musc Denies back pain, Reports arthralgias (in both knees but these seem to have subsided recently) and Denies neck pain Skin/Breast Denies rash Neuro Denies dizziness and Denies headache(s) Endo Denies fatigue and Denies palpitations Physical exam (Primary Care) Vital Signs: Last Vital Signs Temp 97.3 F 02/27/25 15:54 Pulse 72 02/27/25 15:54 BP 120/80 02/27/25 15:54 Pulse Ox 93 02/27/25 15:54 Oxygen Delivery Method Room Air 02/27/25 15:54 BMI result Body Mass Index 37.8 Tobacco/Smoking Status: Tobacco use Status Tobacco use date assessed 02/27/25 02/27/25 15:58 Patient Tobacco Use Status Former Tobacco user 02/27/25 15:58 Tobacco use type Cigarette 02/27/25 15:58 e-Cigarette/Vaping Use Never Used 02/27/25 15:58 Depression Screening Interpretation: Negative Thrive Assessment: Date of Thrive Assessment Date Thrive assessed 10/22/24 02/27/25 15:58 Currently or been in a relationship where the following occur: No concerns reported Const General: no acute distress and alert HENMT Ears: TM's normal bilaterally and EAC's normal Throat: Yes posterior oropharynx normal and Yes tonsils normal (no TP congestion) Neck Neck: Yes supple and No lymphadenopathy Thyroid: Thyroid normal Resp Auscultation: clear to auscultation bilaterally, no rales and no wheezes Cardio Rate: regular rate Rhythm: regular rhythm Heart sounds: no murmurs GI Palpation (GI): Soft to palpation and nontender Auscultation: normal bowel sounds General: Yes no CVA tenderness Back/Spine/Pelvis Back: no CVA tenderness Thoracic/Lumbar Spine: No lumbar spinal tenderness Skin Rashes: no rashes Extrem General: Yes no clubbing, cyanosis or edema Results Reviewed Results Reviewed: Laboratory Tests 02/18/25 02/18/25 06:32 06:36 WBC 6.1 Hgb 16.1 Hct 47.2 Plt Count 219 Sodium 140 Potassium 3.6 Creatinine 1.17 Estimated GFR > 60 Fasting Glucose 112 H Hemoglobin A1c % 6.2 H Calcium 9.2 AST 30 ALT 31 Triglycerides 106 Cholesterol 187 LDL Cholesterol, Calc 133 H HDL Cholesterol 33 L Vitamin B12 409 25-OH Vitamin D Total 39.6 TSH 1.94 Ur Specific [place] 1.020 Urine Protein 100 (2+) H Urine Glucose (UA) Negative Urine Blood Negative Urine Nitrite Negative Ur Leukocyte Esterase Negative Coding Level of Care Code Est Pt Level 4 (30401) Diagnoses Benign essential hypertension I10 Pure hypercholesterolemia E78.00 Impaired fasting glucose R73.01 FSGS (focal segmental glomerulosclerosis) N05.1 Vitamin D deficiency E55.9 GERD without esophagitis K21.9 Ulcerative colitis without complications, unspecified location K51.90 Ulcerative colitis location: unspecified ulcerative colitis location Pain in both knees, unspecified chronicity M25.561; M25.562 Chronicity: unspecified Obesity (BMI 30-39.9) E66.9 Assessment & Plan Assessment & Plan (1) Benign essential hypertension: Code(s): I10 - Essential (primary) hypertension Category: Medical Plan: Reinforced low sodium diet - goal is systolic BP of 120 mm or less Continue Losartan 100 mg + 25 mg (125 mg) QD, Chlorthalidone 25 mg QD and Diltiazem CD 120 mg QD Follow up with nephrology as scheduled (2) Pure hypercholesterolemia: Code(s): E78.00 - Pure hypercholesterolemia, unspecified Category: Medical Plan: Results of his labs done last week reviewed and discussed with patient - he is cautioned that his cholesterol levels have gone back up slightly, with his LDL cholesterol now at 133 mg/dl (was at 120 mg/dl a few months ago) Reinforced low cholesterol diet Continue Atorvastatin 80 mg QD; will consider adding Ezetimibe if his numbers do not improve further Will recheck his labs and fasting lipids in 4 months for follow up (3) Impaired fasting glucose: Code(s): R73.01 - Impaired fasting glucose Category: Medical Plan: His HgbA1c was at 6.2% on his recent labs; was at 6.3% when previously checked earlier this year Reinforced low calorie/low carb diet, exercise and weight loss Patient wishes to continue with diet modification for now and avoid taking any Rx for his blood sugar as much as possible Will recheck his FBS and HgbA1c again in 4 months for follow-up (4) FSGS (focal segmental glomerulosclerosis): Comment: (+) 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 Alejandra) as scheduled Patient has also reportedly been advised to consider bariatric (gastric sleeve) surgery to help improve his health and comorbidities - he has explored weight management recently and remains hesitant to undergo bariatric surgery at present (5) Vitamin D deficiency: Code(s): E55.9 - Vitamin D deficiency, unspecified Category: Medical Plan: Continue Vitamin D3 2000 units QD (6) GERD without esophagitis: Code(s): K21.9 - Gastro-esophageal reflux disease without esophagitis Category: Medical Plan: Dietary restrictions reinforced He used to take Omeprazole 20 mg QD but states that he has not needed to take his Rx in a while now (7) Ulcerative colitis without complications: Comment: (+) diffuse ulcerative colitis diagnosed on previous colonoscopy in 2002 (Dr. Ayala) Code(s): K51.90 - Ulcerative colitis, unspecified, without complications Category: Medical Qualifiers: Ulcerative colitis location: unspecified ulcerative colitis location Qualified Code(s): K51.90 - Ulcerative colitis, unspecified, without complications Plan: Currently stable with no acute flare ups Colonoscopy done in 2013 came out normal and thinks that he was due for repeat colonoscopy in May 2019 but this was delayed/held up due to the COVID-19 pandemic Reviewing his 2014 biopsy revealed findings of a quiescent colitis with no evidence of dysplasia and Dr. Ayala actually recommended back then that patient can wait up to 10 years for a repeat colonoscopy if he has no recurrent flare ups of his colitis He had his repeat colonoscopy done on May 14, [address] Ayala - was advised to get repeat colonoscopy again in 5 years (2028) (8) Bilateral knee pain: Code(s): M25.561 - Pain in right knee; M25.562 - Pain in left knee Category: Medical Qualifiers: Chronicity: unspecified Qualified Code(s): M25.561 - Pain in right knee; M25.562 - Pain in left knee Plan: Patient was previously sent for arterial studies of his lower extremities when he was complaining of recurrent pain in both legs His arterial studies done back in July 2024 came back normal - normal peripheral arterial testing with velocity measurements indicating no significant vascular disease Patient now thinks that his leg pain may actually be arising from his knees as he has noticed that both of his knees have been aching and hurting a lot lately We sent patient for x-rays of both knees for further evaluation at his last visit but he did not get these done as he felt that his knee pains have subsided recently and he would like to hold off on x-rays for now (9) Obesity (BMI 30-39.9): Code(s): E66.9 - Obesity, unspecified Category: Medical Plan: Reinforced diet/exercise as tolerated /lose weight He has been advised by Nephrology to consider gastric sleeve / bariatric surgery to help improve his health - patient has obesity-related secondary FSGS and persistent proteinuria and has been counseled that this can improve with significant weight loss He was referred previously to weight management for further evaluation but patient remains very hesitant to undergo bariatric surgery at this time Plan Follow up in 4 months Orders: Orders Hemoglobin A1c 4 Months E11.9 - Type 2 diabetes mellitus without complications Lipid Panel 4 Months E78.00 - Pure hypercholesterolemia, unspecified UA CC w/rflx Micro + Cult 4 Months R30.0 - Dysuria Vitamin D 25-OH Total 4 Months E55.9 - Vitamin D deficiency, unspecified Complete Blood Count Auto Diff 4 Months D64.9 - Anemia, unspecified Comprehensive Valentine. Panel Fast 4 Months E78.00 - Pure hypercholesterolemia, unspecified TSH reflex Free T4 4 Months E78.00 - Pure hypercholesterolemia, unspecified
[2025-02-27 15:54] VITALS: BP 120/80; PULSE 72; TEMP 36.3; O2SAT 93; BMI 37.8
== END 2025-02-27 16:36 | disposition home or self-care (01) ==
LOC: HO.HMCH 15:50
PROVIDERS: PCP Internal Medicine; Visit Provider Internal Medicine
DX: I10 Essential (primary) hypertension (principal); K51.90 Ulcerative colitis, unspecified, without complications; E66.9 Obesity, unspecified; Z68.37 Body mass index [BMI] 37.0-37.9, adult; R73.01 Impaired fasting glucose; E78.00 Pure hypercholesterolemia, unspecified; N05.1 Unspecified nephritic syndrome with focal and segmental glomerular lesions; E55.9 Vitamin D deficiency, unspecified; K21.9 Gastro-esophageal reflux disease without esophagitis; M25.561 Pain in right knee; M25.562 Pain in left knee